=== PATIENT | male | born 1945 | race African-American/Black ===

== ENCOUNTER 2017-06-26 07:26 | Inpatient (IN) | payer MEDICARE ==
[2017-06-26] MEDS ORDERED: niCARdipine 20MG In NaCl 20 MG/200 ML BAG ONE (07:41)
--- NOTE | 2017-06-26 07:48 | CT ---
CT HEAD NONCONTRAST DATE: 06/26/17 HISTORY: Weakness, slurred speech. COMPARISON: 03/13/08. FINDINGS: Centered at the right lentiform nucleus is an irregular shaped hyperdense fluid collection measuring up to 4.3 x 2.0 cm greatest diameter on the axial images. It is surrounded by a small amount of vasog enic edema with very slight effacement of the right lateral ventricle. Old right [employer] infarct has progressed slightly since the prior study. Chronic ischemic small vessel di sease is also evident within the periventricular white matter. No evidence of intraventricular hemorr steven. IMPRESSION: Hypertensive-type right basal ganglia acute hematoma. Findings called to Dr. Ford in the emergency department at 0739 hours. CODE CR. POS: JIMMY
[2017-06-26 07:52] LABS: #Basophils 0.1 thou/uL (0.0-0.2); #Eosinphils 0.1 thou/uL (0.0-0.7); #Lymphocytes 1.3 thou/uL (1.20-3.40); #Monocytes 0.9 thou/uL (0.11-0.59); #Neutrophils 4.7 thou/uL (1.40-6.50); %Basophils 0.8 % (0.0-1.0); %Eosinophils 2.1 % (0.0-10.0); %Lymphocytes 18.3 % (21.0-51.0); %Neutrophils 65.8 % (42.0-75.0); Hemoglobin 15.2 g/dL (14.0-18.0); Mean Corpuscular HGB CONC 33.6 g/dL (32.0-36.0); Mean Corpuscular Hemoglobin 29.6 pg (27.0-31.0); Mean Corpuscular Volume 88.2 fl (80.0-94.0); Platelet Count 194 thou/uL (130-400); RBC Distribution Width 12.9 % (11.5-14.5); Red Blood Cell (RBC) Count 5.14 mill/uL (4.70-6.10); White Blood Cell (WBC) Count 7.1 thou/uL (4.8-10.8)
[2017-06-26 08:02] LABS: INR-International Normal Ratio 1.1; Prothrombin Time 14.8 SEC (12.0-14.7)
[2017-06-26 08:03] LABS: PTT 32.9 SEC (22.9-36.1)
[2017-06-26 08:07] LABS: ALT (SGPT) 8 U/L (8-55); AST (SGOT) 13 U/L (5-34); Albumin 4.7 g/dL (3.4-4.8); Alkaline Phosphatase 82 U/L (40-150); Anion Gap 13 mmol/L (10-20); BUN (Urea Nitrogen) 29 mg/dL (8.4-25.7); Bilirubin, Total 0.9 mg/dL (0.2-1.2); Calc. Creatinine Clearance 0 mL/min (70-130); Calcium 10.2 mg/dL (7.8-10.44); Carbon Dioxide 22 mmol/L (23-31); Chloride 110 mmol/L (98-107); Estimated GFR-MDRD 24; Globulin 3.8 g/dL (2.4-3.5); Glucose 110 mg/dL (80-115); Protein, Total 8.5 g/dL (5.8-8.1); Sodium 141 mmol/L (136-145)
[2017-06-26 08:11] LABS: CKMB 0.6 ng/mL (0-6.6); Troponin I 0.059 ng/mL (< 0.028)
[2017-06-26 10:34] LABS: Bilirubin Negative (Negative); Blood, Urine Negative (Negative); Clarity CLEAR (Clear); Glucose, Urine (Dipstick) Negative (Negative); Leukocyte Negative (Negative); Nitrite Negative (Negative); Protein, Urine (Dipstick) 300 mg/dL (Neg-Trace); Specific Gravity, Urine 1.013 (1.002-1.036); pH, Urine 6.5 (5.0-9.0)
[2017-06-26 10:37] LABS: Bacteria/HPF None Seen HPF (None Seen); Hyaline Casts/LPF 0-3 HYALINE CAST LPF (0-3 Hyaline); Pathc Cast-AUWi Flag 0.29 (0-2.49); Squamous Epithelial 0-3 HPF (0-3); WBC/HPF 0-3 HPF (0-3)
[2017-06-26 10:42] LABS: Amphetamine Not Detected (NotDetected); Barbiturates Screen Not Detected (NotDetected); Benzodiazepine Screen Not Detected (NotDetected); Cocaine Metabolite Screen Not Detected (NotDetected); Medtox Control Line Valid? VALID (VALID); Medtox Reader # READER 4; Methadone Not Detected (NotDetected); Methamphetamine Not Detected (NotDetected); Opiate Screen Not Detected (NotDetected); Oxycodone Screen Not Detected (NotDetected); Phencyclidine (PCP) Not Detected (NotDetected); THC/Cannabinoid Screen Not Detected (NotDetected); Tricyclic Screen Not Detected (NotDetected)
[2017-06-26 10:51] LABS: RBC/HPF 0-3 HPF (0-3); Yeast-All Forms None Seen HPF (None Seen)
[2017-06-26] MEDS ORDERED: Labetalol HCl 100 MG/20 ML VIAL SLOW IVP PRN ×2 (13:18→15:28)
[2017-06-26] MEDS ORDERED: Ondansetron PF 4 MG/2 ML Vial IVP PRN (13:18)
[2017-06-26] MEDS ORDERED: CCU Electrolyte Replacement 1 EACH IVPB ONE (13:18)
[2017-06-26] MEDS ORDERED: hydrALAZINE 20 MG/ML VIAL SLOW IVP PRN (13:18)
[2017-06-26] MEDS: Sodium Chloride 0.9% 1,000 ML IV SCH (13:30)
[2017-06-26] MEDS ORDERED: Magnesium 2 GM/NS 0.9% 100 ML 2 GM in Premix Bag 1 BAG IVPB PRN (14:15)
[2017-06-26] MEDS ORDERED: Potassium Phosphate 9 MMOL in Sodium Chloride 0.9% 100 ML IVPB PRN (14:15)
[2017-06-26] MEDS ORDERED: Potassium Chloride 20 MEQ TAB PO PRN (14:15)
[2017-06-26] MEDS ORDERED: Potassium Phosphate 12 MMOL in Sodium Chloride 0.9% 250 ML 250 ML IV PRN (14:15)
[2017-06-26] MEDS ORDERED: Potassium Chloride 40 MEQ in Sodium Chloride 0.9% 250 ML 250 ML IVPB PRN (14:15)
[2017-06-26] MEDS ORDERED: CCU ELECTROLYTE REPLACEMENT PROTOCOL FS PRN (14:15)
[2017-06-26] MEDS ORDERED: Potassium Chloride 40 MEQ in Premix Bag 1 BAG IVPB PRN (14:15)
[2017-06-26] MEDS ORDERED: Magnesium Oxide 400 MG TAB PO PRN ×2 (14:15)
[2017-06-26] MEDS ORDERED: Potassium Phosphate 15 MMOL in Sodium Chloride 0.9% 250 ML 250 ML IV PRN (14:15)
[2017-06-26] MEDS ORDERED: niCARdipine 20MG In NaCl 20 MG/200 ML BAG IVPB SCH (15:30)
--- NOTE | 2017-06-26 15:41 | CON ---
DATE OF CONSULTATION: 06/26/2017 SERVICE: Pulmonary Medicine. REASON FOR CONSULTATION: ICU patient. HISTORY OF PRESENT ILLNESS: The patient is a 71-year-old male with past medical history significant for multiple strokes. He is in his usual state of health when he went to bed last night. This morning, when he woke up, he had new neurologic symptoms. He was brought to the Emergency Department and discovered to have a hypertensive related bleed. Otherwise, he was in his usual state of health. He denies any fevers, chills, nausea, vomiting, night sweats, shortness of breath or chest discomfort. He had not been having any cough or sputum production. As previously noted, last night, is in his usual state of health. PAST MEDICAL HISTORY: 1. Hypertension. 2. History of stroke with residual left-sided deficits. PAST SURGICAL HISTORY: Right arm surgery. SOCIAL HISTORY: Negative for alcohol, tobacco or illicit drug use. 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 He has no exposure to chemicals , dust, asbestos or tuberculosis. FAMILY HISTORY: Noncontributory. ALLERGIES: No known drug allergies. MEDICATIONS: List of his inpatient medications were reviewed. Couple small updates were made. REVIEW OF SYSTEMS: General, head, ears, eyes, nose, throat, cardiovascular, respiratory, GI, , musculoskeletal, neurologic and skin is negative except as mentioned in the HPI. PHYSICAL EXAMINATION: VITAL SIGNS: Afebrile, pulse 82, respirations 15, saturation 98% on room air, blood pressure 144/75. HEENT: Normocephalic, atraumatic. Sclerae are white, conjunctivae pink. Oral mucosa is moist without lesions. LUNGS: Decent air entry without prolonged expiratory phase, wheezing, rhonchi or crackles. HEART: Normal rate, regular. ABDOMEN: Soft, nontender, nondistended. Bowel sounds are positive. MUSCULOSKELETAL: No cyanosis or clubbing. There is no pitting in the bilateral lower extremities. LABORATORY DATA: WBC 7.1, hemoglobin 15.2, platelets 194,000. INR 1.1. Creatinine 3.18. Basic metabolic profile is otherwise unremarkable. Liver function studies are unremarkable. Troponin 0.059. Urinalysis is unremarkable. Toxicology screen was unremarkable. IMAGING: CT of the brain demonstrates hemorrhagic cerebrovascular accident in the right thalamus. ASSESSMENT: 1. Intraparenchymal hemorrhage. 2. Hypertension. 3. Chronic kidney disease, suspected. PLAN: We will continue the Cardene drip. We will target a systolic blood pressure less than 140. Pulmonary Critical Care will continue to follow while the patient remains in this location. We have a swallow evaluated first thing in the morning. If he can swallow, will resume some p.o. medications. For the time being, IV fluids will be continued. Pulmonary Critical Care will continue to follow in this location. Currently, the patient is protecting his airway. Hopefully, he will maintain this over the next 48 hours. 70 minutes have been devoted to this patient in various activities. I personally reviewed all imaging studies and laboratory data noted within this document. For fifty percent of this time, I was interacting with the patient at the bedside or coordinating care with the care team. For the remainder of the time I was immediately available to the patient in the hospital unit. PRATIMA
--- NOTE | 2017-06-26 18:16 | CT ---
CT HEAD NONCONTRAST: HISTORY: Intracranial hemorrhage. Followup. COMPARISON: Earlier exam, same date. FINDINGS: Large right basal ganglia hematoma now measures up to 4.8 x 2.3 cm, where it was previously 4.3 x 2 c m. Mass effect upon the lateral ventricle has not significantly changed. No new hemorrhage or other abnormalities. IMPRESSION: Very slight interval expansion of the right basal ganglia hematoma, as detailed above. POS: HAYDE
[2017-06-26] MEDS: hydrALAZINE 20 MG/ML VIAL SLOW IVP PRN (19:16)
[2017-06-26] MEDS: niCARdipine 20MG In NaCl 20 MG/200 ML BAG IVPB SCH ×2 (19:20→21:56)
--- NOTE | 2017-06-26 20:52 | HP ---
HISTORY OF PRESENT ILLNESS: Mr. Davies is a 71-year-old man who was brought to the Emergency Depart [facility] [place] after waking up this morning with speech slurring and headache. He was brought vi a EMS. CT scan performed in the Emergency Department reveals a deep right-sided thalamic hemorrhage that is of his problems. He does have a history of right occipital stroke that left him with some left-sided deficits, though because of his speech difficulties, I am not exactly able to underst and the extent of these chronic deficits. In the bed, he is awake and alert. He does attempt to com municate. Again, he has significant speech dysarthria, but he is moving all 4 extremities for me, an d is otherwise stable. He is on aspirin, but is otherwise not on any other blood thinner. PAST MEDICAL HISTORY: Significant for CVA. PAST SURGICAL HISTORY: Unspecified. CURRENT MEDICATIONS: Atenolol, nifedipine, aspirin, benazepril, oxybutynin, and hydralazine. ALLERGIES: No known drug allergies. PHYSICAL EXAMINATION: Again, he is alert. I am unable to assess if he is oriented, but he does give me affirmative answers by nodding his head, yes or no. He moves all 4 extremities on command. He h as no sensory disturbance that I was able to discern. Extraocular movements are intact. Pupils are equal and reactive to light. Head is normocephalic, atraumatic. He does have some rigidity in the l eft upper extremity and is more sluggish to follow commands there, but still has some motor function particularly hand squeeze. ASSESSMENT: Acute intracerebral hemorrhage and facial motor dysfunction and dysarthria. PLAN: At this time, the patient will be admitted to the Intensive Care Unit [facility], head of bed elevated to 30, we will need to keep his systolic pressures under 160. I am not too concerned about reversing his aspirin as it is low dose, but we will get a serial scan about 4 o'cloc k this afternoon, which is roughly 8 hours since his first scan. We will consult the Critical Care S ervice and the Hospitalist Service and then as long as he remains stable, potentially transitioned ca re to them as primary. I do not believe we will proceed as being surgical, but we will follow closel y to ensure that is not the case.
[2017-06-26] MEDS ORDERED: Famotidine/PF 20 mg/2ml Vial SLOW IVP SCH (21:00)
[2017-06-26] MEDS ORDERED: Pantoprazole 40 MG VIAL IVP SCH (22:00)
--- NOTE | 2017-06-26 23:28 | CT ---
NONCONTRAST HEAD CT: HISTORY: Hemorrhage. Follow-up exam. COMPARISON: 06/26/2017 at 5:04 p.m. and 06/26/2017 at 7:35 a.m. TECHNIQUE: A noncontrast head CT is performed from the skull base to the skull vertex. FINDINGS: Redemonstration of a hemorrhage centered along the right lentiform nucleus. The hemorrhage currently measures 4.9 cm anterior-posterior x 2.5 cm craniocaudal. No significant change. There is associat ed edema, also stable. Stable mass effect upon the right lateral ventricle. There are stable white matter hypodensities. There is stable malacic change involving the right occipital lobe and the post eromedial right temporal lobe. With regard to the left cerebrum, cortical summers white matter differen tiation is preserved. No evidence of hydrocephalus. Stable calvarium. Adequate aeration of the sinuses and mastoid air cells. IMPRESSION: Stable intracranial hemorrhage. POS: [facility]
--- NOTE | 2017-06-27 00:21 | CON ---
DATE OF CONSULTATION: 06/26/2017 ADMITTING PHYSICIAN: Tihen Camara MD CONSULTING PHYSICIAN: Theodore Beck MD REASON FOR CONSULTATION: Manage medical problems. HISTORY OF PRESENT ILLNESS: Mr. Davies is a 71-year-old male with past medical history of hypertension, status post CVA, who was brought in because of change in mental status as well as slurred speech. The patient, when he woke up this morning, had slurred speech and complained of headache as well, but did not have any specific weakness on either side.EMS was calleed who found the pt with speech difficulties and also had markedly elevated blood pressure. Blood pressure in the ER was 177/96. The patient was found to have acute bleed in the right basal ganglia. The patient was seen by Dr. Camara, neurosurgeon, and admitted to CCU and i am being consulted to manage his medical problems. PAST MEDICAL HISTORY: 1. Hypertension. 2. Status post cerebrovascular accidents. 3. Hyperlipidemia. 4. Left-sided residual deficits. PAST SURGICAL HISTORY: Status post right arm surgery. CURRENT MEDICATIONS: The patient is on atenolol 100 mg b.i.d., nifedipine XL 90 mg daily, benazepril 40 mg daily, hydralazine 100 mg t.i.d., oxybutynin chloride 5 mg b.i.d. ALLERGIES: No known drug allergies. FAMILY HISTORY: Nothing of interest. SOCIAL HISTORY: The patient lives with family. No history of smoking or alcohol. REVIEW OF SYSTEMS: Cardiovascular: No chest pain. No shortness of breath. Respiratory: No fever or cough. Gastrointestinal: No nausea or vomiting. No abdominal pain. Central nervous system: Has headache. PHYSICAL EXAMINATION: GENERAL: The patient is alert, awake, oriented x2. VITAL SIGNS: Temperature 98, pulse 82, respirations 20, blood pressure 160/117. HEENT: Head is normocephalic, atraumatic. Pupils are equal and reactive to light. Nasopharynx is pink and moist. NECK: Supple. No JVD. LUNGS: Bilateral air entry present. No rales, no rhonchi. HEART: S1, S2. ABDOMEN: Soft, no rebound. No tenderness, no organomegaly, bowel sounds. RECTAL: deferred.. CENTRAL NERVOUS SYSTEM: No new focal deficit. Left facial droop, mild. LABORATORY DATA: CBC shows WBC 7.1, hemoglobin 15, hematocrit 45, platelets 194. Metabolic panel: Sodium 140, potassium 4, chloride 110, CO2 of 20, urea nitrogen 10, creatinine 3.1, glucose 110, CK-MB 0.6, troponin 0.059. Urinalysis is negative. Urine toxicology screen is negative. CT of the brain showed right basilar ganglia hematoma. ASSESSMENT: 1. Acute hypertensive hemorrhage, right basal ganglia. 2. Hypertension, malignant, uncontrolled. 3. Status post cerebrovascular accidents, multiple. 4. Hyperlipidemia. 5. Chronic kidney disease, stage 4. 6. Acute kidney injury as well. PLAN: 1. Continue ICU monitoring. 2. Cardene infusion. 3. We will start his home medications. 4. Hydralazine IVP p.r.n. Thank you very much for consult. I will follow. YID
[2017-06-27] MEDS ORDERED: niCARdipine 20MG In NaCl 20 MG/200 ML BAG IVPB SCH (00:45)
[2017-06-27] MEDS: Sodium Chloride 0.9% 1,000 ML IV SCH ×3 (02:17→17:58)
[2017-06-27] MEDS: niCARdipine HCl 25 MG in Sodium Chloride 0.9% 250 ML 240 ML IVPB SCH ×3 (02:37→06:27)
[2017-06-27 04:38] LABS: #Eosinphils 0.1 thou/uL (0.0-0.7); #Neutrophils 4.8 thou/uL (1.40-6.50); %Basophils 0.6 % (0.0-1.0); %Eosinophils 1.1 % (0.0-10.0); %Lymphocytes 14.6 % (21.0-51.0); %Monocytes 13.8 % (0.0-10.0); %Neutrophils 69.9 % (42.0-75.0); Hemoglobin 12.8 g/dL (14.0-18.0); Mean Corpuscular HGB CONC 33.9 g/dL (32.0-36.0); Mean Corpuscular Hemoglobin 30.3 pg (27.0-31.0); Mean Corpuscular Volume 89.3 fl (80.0-94.0); Mean Platelet Volume 7.4 fL (7.4-10.4); Platelet Count 170 thou/uL (130-400); RBC Distribution Width 12.7 % (11.5-14.5); Red Blood Cell (RBC) Count 4.25 mill/uL (4.70-6.10); White Blood Cell (WBC) Count 6.9 thou/uL (4.8-10.8)
[2017-06-27 05:02] LABS: Anion Gap 10 mmol/L (10-20); BUN (Urea Nitrogen) 24 mg/dL (8.4-25.7); Calc. Creatinine Clearance 26 mL/min (70-130); Calcium 8.7 mg/dL (7.8-10.44); Carbon Dioxide 22 mmol/L (23-31); Chloride 114 mmol/L (98-107); Estimated GFR-MDRD 28; Glucose 90 mg/dL (80-115); Sodium 142 mmol/L (136-145)
--- NOTE | 2017-06-27 07:26 | PRG ---
DATE OF SERVICE: 06/27/2017 SERVICE: Pulmonary Medicine INTERVAL HISTORY: The patient is doing fine from a respiratory standpoint. Neurologically, he has not gotten any worse. If anything, he has improved ever so slightly. He denies any chest pain, nausea or vomiting. Speech has yet to evaluate his swallow, but if he passes it, we will get him back on some p.o. blood pressure medications. Otherwise, there have been no events overnight. PHYSICAL EXAMINATION: VITAL SIGNS: Afebrile, pulse 78, blood pressure 136/71, respirations 19, saturation 95% on room air. GENERAL: The patient is awake, alert, no apparent distress. LUNGS: Excellent air entry. There is no prolonged expiratory phase, wheezing, rhonchi, or crackles present. HEART: Normal rate, regular. ABDOMEN: Soft, nontender, nondistended. Bowel sounds are positive. MUSCULOSKELETAL: No cyanosis or clubbing. There is no pitting in the bilateral lower extremities. LABORATORY DATA: WBC 6.9, hemoglobin 12.8, platelets 170,000. Creatinine 2.71 and gently down trending, bicarbonate 22, chloride 114. Basic metabolic profile is otherwise unremarkable. Urinalysis is negative. Urine drug screen is negative. ASSESSMENT: 1. Intraparenchymal hemorrhage. 2. Hypertension. 3. Chronic kidney disease, suspected. PLAN: Once his swallow is evaluated, if he is able to tolerate p.o., I will transition him over to p.o. blood pressure medications and see if we can get him off the Cardene drip. In the meantime, we will try to maintain blood pressures below systolics of 140. If he cannot swallow, an NG tube will be placed so we can provide him with nutrition, and p.o. medications while this is rehabilitated through time. A Solis catheter is not necessary and will be discontinued. From my perspective, he is stable for transition to the stroke unit if the drip can be discontinued. PRATIMA
--- NOTE | 2017-06-27 08:12 | PRG ---
DATE OF SERVICE: 06/27/2017 Mr. Davies is doing roughly the same today, he is neurologically stable. He still follows commands. His speech is somewhat improved and he answered my questions appropriately. He denies any pain or discomfort at present. He still has the same grade of motor control in his upper extremities and his left upper extremity being the one that retained the deficits from a prior stroke and possibly from this hemorrhage. We repeated imaging yesterday evening of the brain which reveals minimal increase i n the size of his right thalamic hemorrhage. I think at this point, we will have a discussion with [facility] Hospitalist Service about transferring care from [facility]. I would continue to hold his blood pres sure under 160, leave him off of his aspirin until we can get a repeat imaging in roughly a month or so to determine if this hemorrhage is resolved, at which point he could restart.
[2017-06-27 09:30] LABS: Cardiac Risk 4.1 (Less than 4.5)
[2017-06-27] MEDS: niCARdipine HCl 50 MG in Sodium Chloride 0.9% 250 ML 230 ML IVPB SCH ×4 (10:30→23:52)
--- NOTE | 2017-06-27 19:55 | PRG ---
DATE OF SERVICE: 06/27/2017 SUBJECTIVE: Mr. Davies is a 71-year-old gentleman admitted for a right thalamic hemorrhage. This s howed minimal blossoming between a follow up head CT. He has been neurologically stable since admiss ion. There will be no plans for a neurosurgical intervention. I foresee no need for placement of a ventriculostomy. Our plan will be to transition him to Hospitalist Service for ongoing hemorrhagic s troke evaluation and disposition.
[2017-06-27] MEDS ORDERED: Pantoprazole 40 MG VIAL IVP SCH (21:00)
[2017-06-28] MEDS: Sodium Chloride 0.9% 1,000 ML IV SCH (05:38)
[2017-06-28] MEDS: niCARdipine HCl 50 MG in Sodium Chloride 0.9% 250 ML 230 ML IVPB SCH (05:39)
[2017-06-28] MEDS ORDERED: Oxybutynin 5 MG TAB PO SCH (10:00)
[2017-06-28] MEDS ORDERED: NIFEdipine XL 90 MG TAB PO SCH (10:00)
[2017-06-28] MEDS ORDERED: Aspirin 325 MG TAB PO SCH (10:00)
[2017-06-28] MEDS ORDERED: Atenolol 50 MG TAB PO SCH (10:00)
[2017-06-28] MEDS ORDERED: hydrALAZINE 25 MG TAB PO SCH (10:00)
--- NOTE | 2017-06-28 10:55 | PRG ---
DATE OF SERVICE: 06/28/2017 SERVICE: Pulmonary Medicine. INTERVAL HISTORY: The patient is doing a little better from a respiratory standpoint. He denies any chest pain, nausea, vomiting. His mentation is roughly stable. His blood pressure is under good co ntrol, but requiring quite significant amount of medication in order to keep it there. He is having a low-grade temperature. Otherwise, there has been no change to his condition. PHYSICAL EXAMINATION: VITAL SIGNS: Afebrile currently. T-max 100.2, pulse 87, blood pressure 142/69, respirations 22, sat uration 95% on room air. GENERAL: The patient is awake, alert, no apparent distress. LUNGS: Decent air entry with no prolonged expiratory phase, wheezing, rhonchi, or crackles present. HEART: Normal rate, regular. ABDOMEN: Soft, nontender, and nondistended. Bowel sounds are positive. MUSCULOSKELETAL: No cyanosis or clubbing. There is no pitting in the bilateral lower extremities. ASSESSMENT: 1. Intraparenchymal hemorrhage. 2. Hypertension. 3. Chronic kidney disease, suspected. PLAN: Speech is clear to swallow. As such, we will resume home medications and titrate off of the C ardene drip. Pulmonary or Critical Care will continue to follow along while the patient remains in t his location. We will continue working with physical therapy through time. From my perspective, he is stable for transition to the neuro unit once he is off the Cardene drip.
[2017-06-28] MEDS: hydrALAZINE 20 MG/ML VIAL SLOW IVP PRN ×2 (13:47→17:36)
[2017-06-28] MEDS: hydrALAZINE 25 MG TAB PO SCH ×2 (13:48→19:57)
[2017-06-28] MEDS: Acetaminophen 325 MG TAB PO PRN (13:48)
[2017-06-28] MEDS: Atenolol 50 MG TAB PO SCH (19:57)
[2017-06-28] MEDS: Oxybutynin 5 MG TAB PO SCH (19:58)
[2017-06-29] MEDS: hydrALAZINE 20 MG/ML VIAL SLOW IVP PRN (05:48)
[2017-06-29] MEDS: NIFEdipine XL 90 MG TAB PO SCH (07:47)
[2017-06-29] MEDS: Oxybutynin 5 MG TAB PO SCH ×2 (07:49→20:19)
[2017-06-29] MEDS: hydrALAZINE 25 MG TAB PO SCH ×3 (08:00→20:19)
[2017-06-29] MEDS ORDERED: Atenolol 50 MG TAB PO SCH (08:00)
[2017-06-29] MEDS: Atenolol 50 MG TAB PO SCH ×2 (08:02→20:19)
[2017-06-29] MEDS ORDERED: Aspirin 325 MG TAB PO SCH (09:00)
--- NOTE | 2017-06-29 14:24 | PQF ---
CLINICAL DOCUMENTATION IMPROVEMENT CLARIFICATION FORM: ICD-10 Updated PLEASE DO AN ADDENDUM TO THE PROGRESS NOTE WITH ANY DOCUMENTATION UPDATES OR ADDITIONS AND CARRY THROUGH TO DC SUMMARY. THANK YOU. DATE: 06/29/17 ATTN: Dr. Beck Please exercise your independent, professional judgment in responding to the clarification form. Clinical indicators are provided on the bottom of this form for your review Please check appropriate box(s): [ ] Associated Diagnosis: [ ] Cerebral edema / Vasogenic edema [ ] Compression of brain Due to: [ ] Intracranial hematoma [ ] Acute cerebral infarction [ y ] Other diagnosis cerebral hemorrhge in basal ganglia, right [ ] Unable to determine In addition, please specify: Present on Admission (POA): [ y ] Yes [ ] No [ ] Unable to determine For continuity of documentation, please document condition throughout progress notes and discharge summary. Thank You. CLINICAL INDICATORS - SIGNS / SYMPTOMS/ IMAGING are present in the medical record: CT SCAN BRAIN 06/26 @0805: FINDINGS: CENTERED AT THE R LENTIFORM NUCLEUS IS AN IRREGULAR SHAPED HYPERDENSE FLUID COLLECTION.... IT IS SURROUNDED BY A SMALL AMOUNT OF VASOGENIC EDEMA W/ VERY SLIGHT EFFACEMENT OF THE R LATERAL VENTRICLE CT SCAN BRAIN 06/26 @ 2334: REDEMONSTRATION OF A HEMORRHAGE CENTERED ALONG THE RIGHT LENTIFORM NUCLEUS. .. THERE IS ASSOCIATED EDEMA, ALSO STABLE. NEURO SURGEON PN 06/27: ADMITTED FOR A R THALAMIC HEMORRHAGE. THIS SHOWED MINIMAL BLOSSOMING BETWEEN A FOLLOW UP HEAD CT. . RISKS: H&P: ACUTE INTRACEREBRAL HEMORRHAGE & FACIAL MOTOR DYSFUNCTION & DYSARTHRIA. TREATMENT: H&P: ADMITTED TO ICU W/ Q1 HR NEURO CHECKS, Thank you, Lorraine (This form is maintained as a part of the permanent medical record) 2014 [employer]. All Rights Reserved Lorraine Jackson RN, BSN [email or web address] Office: [phone] [facility]
--- NOTE | 2017-06-29 16:09 | PRG ---
DATE OF SERVICE: 06/29/2017 SERVICE: Pulmonary Medicine. INTERVAL HISTORY: The patient is doing fine from a respiratory standpoint. He denies any chest pain , nausea or vomiting. He is breathing comfortably. There has been no significant change to his neur ologic function through time. PHYSICAL EXAMINATION: VITAL SIGNS: Afebrile, pulse 79, blood pressure 153/85, respirations 18, saturation 95% on room air. GENERAL: The patient is awake, alert, no apparent distress. LUNGS: Decent air entry bilaterally without prolonged expiratory phase, wheezing, rhonchi or crackle s. HEART: Normal rate and regular. ABDOMEN: Soft, nontender, nondistended. Bowel sounds are positive. MUSCULOSKELETAL: No cyanosis or clubbing. There is no pitting in the bilateral lower extremities. LABORATORY DATA: None. ASSESSMENT: 1. Intraparenchymal hemorrhage. 2. Hypertension. 3. Chronic kidney disease, suspected. PLAN: The patient is doing fairly well from a respiratory perspective. He continues to protect his airway. His neurologic status has not changed significantly in the past 48 hours. As such, he has n o further requirements for inpatient Pulmonary or Critical Care opinion and I will sign off. Please call with additional questions or concerns moving forward.
[2017-06-29] MEDS ORDERED: Hydrochlorothiazide 25 MG TAB PO SCH (18:00)
[2017-06-30 05:51] LABS: Anion Gap 15 mmol/L (10-20); BUN (Urea Nitrogen) 31 mg/dL (8.4-25.7); Calc. Creatinine Clearance 26 mL/min (70-130); Calcium 8.9 mg/dL (7.8-10.44); Carbon Dioxide 20 mmol/L (23-31); Chloride 110 mmol/L (98-107); Estimated GFR-MDRD 23; Glucose 121 mg/dL (80-115); Potassium 3.7 mmol/L (3.5-5.1); Sodium 141 mmol/L (136-145)
[2017-06-30 07:44] LABS: Hemoglobin 12.3 g/dL (14.0-18.0); Mean Corpuscular HGB CONC 33.1 g/dL (32.0-36.0); Mean Corpuscular Hemoglobin 29.4 pg (27.0-31.0); Mean Corpuscular Volume 88.9 fl (80.0-94.0); Mean Platelet Volume 7.5 fL (7.4-10.4); Platelet Count 165 thou/uL (130-400); RBC Distribution Width 12.9 % (11.5-14.5); Red Blood Cell (RBC) Count 4.17 mill/uL (4.70-6.10); White Blood Cell (WBC) Count 10.5 thou/uL (4.8-10.8)
[2017-06-30] MEDS: Atenolol 50 MG TAB PO SCH ×2 (08:32→22:27)
[2017-06-30] MEDS: hydrALAZINE 25 MG TAB PO SCH ×3 (08:34→22:29)
[2017-06-30] MEDS: Hydrochlorothiazide 25 MG TAB PO SCH (08:35)
[2017-06-30] MEDS: NIFEdipine XL 90 MG TAB PO SCH (08:35)
[2017-06-30] MEDS: Oxybutynin 5 MG TAB PO SCH ×2 (08:35→22:29)
[2017-06-30] MEDS: Acetaminophen 325 MG TAB PO PRN (08:35)
[2017-06-30 08:45] LABS: Band 3 % (5-11); Lymphocytes 11 % (21-51); MDiff Complete? YES; Monocytes 16 % (0-10); Neutrophil 70 % (42-75); RBC Morphology Normal
[2017-06-30] MEDS: Albumin 25% 25 GM/100 ML BOT IVPB SCH (17:28)
--- NOTE | 2017-06-30 18:57 | CON ---
DATE OF CONSULTATION: 06/30/2017 HISTORY OF PRESENT ILLNESS: Mr. Davies is a 71-year-old black male who initially presented to the E due to impaired speech. He was found to have some left facial asymmetry and left-sided weakness. CT scan of the brain was done which showed a right-sided basal ganglia acute hematoma. Consultation with Neurosurgery was also done at that time. At that time, recommendation was simply t o manage him conservatively. We are now being consulted for the patient's chronic renal failure. Please note his initial creatini ne on admission was noted 3.18 and is currently now today at 3.28. REVIEW OF SYSTEMS: Left facial droop, left-sided weakness. No nausea, no vomiting. Positive for dy sarthria, no syncopal episode, no productive cough, no fever or chills, no abdominal pain, no diarrhe a, no constipation, no dysuria, no urinary frequency, no occasional headache. MEDICATIONS: Tenormin 100 mg p.o. b.i.d., Lotensin 40 mg daily, hydralazine 100 mg p.o. t.i.d., hydr ochlorothiazide 25 mg once a day, Procardia-XL 90 mg once a day, Ditropan 5 mg p.o. b.i.d. PAST MEDICAL HISTORY: Longstanding hypertension, recently status post CVA, basal ganglia bleed. Ple ase note patient has left-sided deficit. PAST SURGICAL HISTORY: Includes right arm surgery, also status post colonoscopy with polypectomy. SOCIAL HISTORY: Currently a sedentary lifestyle. The patient is a former alcoholic. No IV drug abu se. No smoking history. ALLERGIES: None. TRAUMA: None. IMMUNIZATIONS: Unknown. HOSPITALIZATIONS: Please see past medical history. FAMILY HISTORY: Noncontributory. PHYSICAL EXAMINATION: VITAL SIGNS: Blood pressure 121/76, heart rate 75, respiratory rate 18, temperature 99.9, pulse ox i s 93%. GENERAL: Noted to be awake, alert, comfortable, not in distress. SKIN: Adequate turgor. HEENT: He has pinkish conjunctivae, anicteric sclerae. NECK: No neck mass, no carotid bruits, no JVD. CHEST: No deformities. LUNGS: Clear breath sounds, no wheezing, no crackles. HEART: Normal sinus rhythm. No murmur, no gallops, no rubs. ABDOMEN: Globular, soft, nontender, no masses. EXTREMITIES: No edema, no deformities. NEUROLOGIC: Mild dysarthria, left-sided weakness, left facial droop. LABORATORY AND X-RAY FINDINGS: Laboratories of 06/30/2017, white count 10.5, hemoglobin 12.3, sodium 141, potassium 3.7, chloride 110, carbon dioxide 20, BUN 31, creatinine 3.28. On 06/27/2017, creati nine 2.71, on 06/23/2017, creatinine 3.18. On 06/26/2017, urinalysis shows protein of 300, no red cells, no white cells. ASSESSMENT AND PLAN: 1. Chronic renal failure -- fluctuating creatinine at the present time and underlying hypertensive n ephropathy remains with this patient. However, I could not rule out this possibility of superimposed prerenal azotemia. Please note this patient is currently on a diuretic, hydrochlorothiazide and raven azepril. We may need to consider holding off the benazepril for the moment. In addition, we will pr oceed with a renal ultrasound with this patient. We will semi-quantitate protein/creatinine. We zain l also semi-quantitate protein excretion with this patient. 2. Status post cerebrovascular accident. Supportive care. Thank you for the consult. We will continue to follow.
--- NOTE | 2017-06-30 19:32 | ULT ---
BILATERAL RENAL ULTRASOUND: 06/30/17 HISTORY: Renal failure. FINDINGS: The right kidney measures 9.6 cm in length and the left kidney measures 8.5 cm in length. No hydronep hrosis is seen on either side. The left kidney is not satisfactorily visualized. The prevoid bladder volume is 209 mL. The prostate is enlarged measuring 5.7 x 3.2 x 5.5 cm. IMPRESSION: 1. No evidence of high grade obstruction. 2. Prostatomegaly. POS: [facility]
[2017-07-01] MEDS: Labetalol HCl 100 MG/20 ML VIAL SLOW IVP PRN ×3 (00:20→14:19)
[2017-07-01] MEDS: Albumin 25% 25 GM/100 ML BOT IVPB SCH ×4 (00:23→17:50)
[2017-07-01] MEDS: Acetaminophen 325 MG TAB PO PRN (05:06)
[2017-07-01 05:44] LABS: Hep C IgG Ab Non-Reactive (NonReactive); Hep C Index 0.28 S/CO (0-0.79)
[2017-07-01] MEDS: NIFEdipine XL 90 MG TAB PO SCH (07:42)
[2017-07-01] MEDS: hydrALAZINE 25 MG TAB PO SCH ×4 (07:42→20:50)
[2017-07-01] MEDS: Atenolol 50 MG TAB PO SCH ×2 (07:43→20:51)
[2017-07-01] MEDS: Hydrochlorothiazide 25 MG TAB PO SCH (07:44)
[2017-07-01] MEDS: Oxybutynin 5 MG TAB PO SCH ×2 (07:44→20:51)
--- NOTE | 2017-07-01 14:04 | PRG ---
DATE OF SERVICE: 07/01/2017 SERVICE: Renal Medicine. SUBJECTIVE: Mr. Davies is a 71-year-old black male who was admitted due to CVA secondary to intracr anial bleed. He has also labile hypertension. We were consulted due to his acute kidney injury. Hi s renal function continues to worsen. I have discontinued his benazepril yesterday. This morning du e to the worsening renal dysfunction, I discontinued hydrochlorothiazide. He is currently receiving salt poor albumin. A presumptive diagnosis of hemodynamically mediated renal dysfunction has been eloy polk. His urine sediment is relatively benign. This morning, he is less arousable. OBJECTIVE: VITAL SIGNS: Blood pressure is 151/94, heart rate 89, respiratory 16, temperature 98.8, pulse ox 96% . GENERAL: The patient is lethargic and less arousable, not in distress. SKIN: Adequate turgor. HEENT: He has pinkish conjunctivae, anicteric sclerae. NECK: No neck mass, no carotid bruits, no JVD. CHEST: No deformities. LUNGS: Decreased breath sounds. HEART: Normal sinus rhythm. No murmur, no gallops, no rubs. ABDOMEN: Globular, soft, nontender, no masses. EXTREMITIES: No edema, no deformities. MEDICATIONS: Of 07/01/2017 was reviewed. LABORATORY DATA: Of 06/30/2017, BUN 31, creatinine 3.28. Urinalysis was reviewed on 06/26/2017. Th ere was no pigmented granular cast, but does have protein. Urine creatinine is 58.95. ASSESSMENT AND PLAN: 1. Acute kidney injury - consider a hemodynamically mediated renal dysfunction. The patient is off his RAUL inhibitors and diuretics. We will continue salt poor albumin infusion. No indication for an y dialytic intervention. 2. Hypertension. Due to the discontinuation of the benazepril and hydrochlorothiazide, we have adde d minoxidil at 5 mg tab once a day with this patient. 3. Status post cerebrovascular accident secondary to bleed. Continue supportive care. Neurosurgery is following. Overall, prognosis remains guarded with this patient.
[2017-07-01] MEDS: NIFEdipine XL 60 MG TAB PO SCH (20:51)
[2017-07-02] MEDS: Albumin 25% 25 GM/100 ML BOT IVPB SCH ×4 (00:45→18:01)
[2017-07-02] MEDS: Sodium Chloride 0.9% 1,000 ML IV SCH ×2 (04:25→10:11)
[2017-07-02 05:03] LABS: #Eosinphils 0.1 thou/uL (0.0-0.7); #Monocytes 1.4 thou/uL (0.11-0.59); #Neutrophils 7.7 thou/uL (1.40-6.50); %Basophils 0.2 % (0.0-1.0); %Eosinophils 0.9 % (0.0-10.0); %Lymphocytes 9.8 % (21.0-51.0); %Monocytes 13.3 % (0.0-10.0); %Neutrophils 75.8 % (42.0-75.0); Mean Corpuscular HGB CONC 34.4 g/dL (32.0-36.0); Mean Corpuscular Hemoglobin 30.3 pg (27.0-31.0); Mean Platelet Volume 7.5 fL (7.4-10.4); Platelet Count 137 thou/uL (130-400); RBC Distribution Width 12.6 % (11.5-14.5); Red Blood Cell (RBC) Count 3.63 mill/uL (4.70-6.10); White Blood Cell (WBC) Count 10.1 thou/uL (4.8-10.8)
[2017-07-02 05:33] LABS: HBSAg Index 0.19 S/CO (0-0.99); Hep B Surf Ag Non-Reactive S/CO (NonReactive); Hep C IgG Ab Non-Reactive (NonReactive); Hep C Index 0.24 S/CO (0-0.79)
[2017-07-02 05:40] LABS: Anion Gap 16 mmol/L (10-20); BUN (Urea Nitrogen) 50 mg/dL (8.4-25.7); Calc. Creatinine Clearance 23 mL/min (70-130); Calcium 10.3 mg/dL (7.8-10.44); Carbon Dioxide 26 mmol/L (23-31); Chloride 106 mmol/L (98-107); Estimated GFR-MDRD 20; Glucose 110 mg/dL (80-115); Potassium 3.5 mmol/L (3.5-5.1); Sodium 144 mmol/L (136-145)
--- NOTE | 2017-07-02 09:23 | CT ---
CT BRAIN: DATE: 07/02/17. PROVIDED CLINICAL HISTORY: Intracranial hemorrhage. FINDINGS: Comparison 06/26/17. There is persistent parenchymal hematoma involving the region of the right lenti form nuclei. This measures about 2.8 x 5.9 cm in greatest transverse dimensions as compared to about 5.6 x 2.7 cm on the prior study. There is no significant shift of the midline structures. Encephal omalacia involving the right [employer] distribution is redemonstrated. Chronic microvascular ischemic holliday ges are again seen. No evidence for new intracranial hemorrhage. The extracranial soft tissues and osseous structures appear unchanged. IMPRESSION: Right-sided intraaxial hematoma is redemonstrated without significant interval change. POS: [facility]
[2017-07-02] MEDS: hydrALAZINE 25 MG TAB PO SCH ×2 (09:31→21:28)
[2017-07-02] MEDS: Atenolol 50 MG TAB PO SCH ×2 (09:31→21:27)
[2017-07-02] MEDS: Minoxidil 2.5 MG TAB PO SCH (09:32)
[2017-07-02] MEDS: NIFEdipine XL 60 MG TAB PO SCH ×2 (09:32→21:27)
[2017-07-02] MEDS: Oxybutynin 5 MG TAB PO SCH ×2 (09:33→21:28)
[2017-07-02] MEDS ORDERED: hydrALAZINE 20 MG/ML VIAL SLOW IVP PRN (11:16)
[2017-07-02] MEDS ORDERED: hydrALAZINE 20 MG/ML VIAL SLOW IVP SCH (13:00)
[2017-07-02] MEDS ORDERED: hydrALAZINE 25 MG TAB PO SCH (18:00)
[2017-07-02] MEDS ORDERED: Minoxidil 2.5 MG TAB PO SCH (18:00)
[2017-07-02] MEDS: Acetaminophen 325 MG TAB PO PRN (21:30)
[2017-07-03 05:07] LABS: #Eosinphils 0.1 thou/uL (0.0-0.7); #Lymphocytes 0.8 thou/uL (1.20-3.40); #Neutrophils 6.1 thou/uL (1.40-6.50); %Basophils 0.2 % (0.0-1.0); %Eosinophils 1.4 % (0.0-10.0); %Lymphocytes 9.8 % (21.0-51.0); %Monocytes 12.6 % (0.0-10.0); Hemoglobin 11.4 g/dL (14.0-18.0); Mean Corpuscular Hemoglobin 30.2 pg (27.0-31.0); Mean Corpuscular Volume 88.9 fl (80.0-94.0); Mean Platelet Volume 7.8 fL (7.4-10.4); Platelet Count 153 thou/uL (130-400); RBC Distribution Width 12.5 % (11.5-14.5); Red Blood Cell (RBC) Count 3.76 mill/uL (4.70-6.10)
[2017-07-03] MEDS: Sodium Chloride 0.9% 1,000 ML IV SCH ×2 (05:11→14:43)
[2017-07-03 05:41] LABS: Anion Gap 17 mmol/L (10-20); BUN (Urea Nitrogen) 55 mg/dL (8.4-25.7); Calc. Creatinine Clearance 24 mL/min (70-130); Calcium 10.2 mg/dL (7.8-10.44); Carbon Dioxide 23 mmol/L (23-31); Chloride 107 mmol/L (98-107); Estimated GFR-MDRD 21; Glucose 104 mg/dL (80-115); Potassium 3.3 mmol/L (3.5-5.1); Sodium 144 mmol/L (136-145)
[2017-07-03] MEDS: Atenolol 50 MG TAB PO SCH ×2 (09:15→21:23)
[2017-07-03] MEDS: Minoxidil 2.5 MG TAB PO SCH (09:16)
[2017-07-03] MEDS: hydrALAZINE 25 MG TAB PO SCH ×4 (09:16→21:22)
[2017-07-03] MEDS: Oxybutynin 5 MG TAB PO SCH ×2 (09:17→21:23)
[2017-07-03] MEDS: NIFEdipine XL 60 MG TAB PO SCH (09:17)
--- NOTE | 2017-07-03 09:33 | PRG ---
DATE OF SERVICE: 07/03/2017 SUBJECTIVE: Mr. Davies is a 71-year-old black male who was seen by the Renal Service for his acute kidney injury. I felt that he had a superimposed hemodynamically mediated renal dysfunction. He had a recent CVA. In addition, his p.o. intake has been poor. I have also discontinued some of his RAUL inhibitors and ARB as well as a diuretic. He has been also started on salt poor albumin and normal saline. This morning, no new complaints. He is more awake. A repeat CT scan of the brain showed no progression of the cerebrovascular accident. No complaints of chest pain or shortness of breath. Still with decreased appetite. PHYSICAL EXAMINATION: VITAL SIGNS: Blood pressure 181/95, heart rate 78, respiratory rate 16, temperature 99, pulse ox 93% . GENERAL: Noted to be awake, lethargic, not in distress. SKIN: Adequate turgor. HEENT: Pinkish conjunctivae. Anicteric sclerae. NECK: No neck mass, no carotid bruits, no JVD. CHEST: No deformities. LUNGS: Clear breath sounds. No wheezing, no crackles. HEART: Normal sinus rhythm. No murmur, no gallops or rubs. ABDOMEN: Flat, soft, nontender. EXTREMITIES: No edema. Positive for left-sided weakness. MEDICATIONS: 07/03/2017 - Reviewed. LABORATORY: 07/03/2017 - White count 8, hemoglobin 11.4, sodium 144, potassium 3.3, chloride 107, ca rbon dioxide 23, BUN 55, creatinine 3.5, GFR 21 mL per minute. Calcium 10.2. CT scan of the brain 07/02/2017; right-sided intraaxial hematoma without significant interval change. ASSESSMENT AND PLAN: 1. Acute kidney injury on top of his chronic renal failure, stabilizing renal function. As a matter of fact, creatinine is slightly improved when compared to yesterday. Continue current normal saline . Continue to hold off any diuretics or RAUL inhibitors with this patient. 2. Status post cerebrovascular accident - secondary to bleed. Supportive care. 3. Decreased p.o. intake. I encouraged the patient to increase his p.o. intake. If he is not succe ssful, he may need a NG tube. 4. Labile hypertension. Continue current blood pressure meds.
[2017-07-03 13:09] LABS: ANA Symphony (Qualitative) Negative (Negative); dsDNA IgG Antibody 1.6 IU/mL (<10 Negative)
[2017-07-04] MEDS: Sodium Chloride 0.9% 1,000 ML IV SCH ×3 (00:51→14:31)
[2017-07-04] MEDS: hydrALAZINE 20 MG/ML VIAL SLOW IVP PRN ×3 (03:52→18:39)
[2017-07-04] MEDS: hydrALAZINE 25 MG TAB PO SCH ×4 (08:52→21:41)
[2017-07-04] MEDS: Oxybutynin 5 MG TAB PO SCH ×2 (08:53→21:42)
[2017-07-04] MEDS: Minoxidil 2.5 MG TAB PO SCH (08:53)
[2017-07-04] MEDS ORDERED: NIFEdipine 10 MG CAP PO SCH (09:00)
[2017-07-04 09:09] LABS: Anion Gap 14 mmol/L (10-20); BUN (Urea Nitrogen) 69 mg/dL (8.4-25.7); Calc. Creatinine Clearance 25 mL/min (70-130); Calcium 9.3 mg/dL (7.8-10.44); Carbon Dioxide 17 mmol/L (23-31); Chloride 115 mmol/L (98-107); Estimated GFR-MDRD 22; Glucose 117 mg/dL (80-115); Potassium 3.4 mmol/L (3.5-5.1); Sodium 143 mmol/L (136-145)
--- NOTE | 2017-07-04 09:14 | PRG ---
DATE OF SERVICE: 07/04/2017 RENAL MEDICINE SUBJECTIVE: Mr. Davies is a 71-year-old black male who was admitted for CVA secondary to bleed. We have been consulted this patient for his labile hypertension as well as acute renal failure. I have discontinued his diuretics and RAUL inhibitors. There is some stabilization with the renal function. Due to his decreased p.o. intake, he is currently also on IV fluids. No new complaints today. He still has decreased appetite. PHYSICAL EXAMINATION: VITAL SIGNS: Blood pressure 117/73, heart rate 84, respiratory rate 20, temperature 99.6, pulse ox 9 3%. GENERAL: Noted to be awake, alert, comfortable, sleepy, but arousable. SKIN: Adequate turgor. HEENT: Pinkish conjunctivae, anicteric sclerae. NECK: No neck mass, no carotid bruits, no JVD. CHEST: No deformities. LUNGS: Clear breath sounds, no wheezing, no crackles. HEART: Normal sinus rhythm. No murmurs, no gallops, no rubs. ABDOMEN: Globular, soft, nontender. No masses. EXTREMITIES: No edema. NEUROLOGIC: Positive for left-sided weakness. MEDICATIONS: Medications of 07/04/2017 reviewed. LABORATORY DATA: Laboratories of 07/03/2017; hemoglobin 11.4, potassium 3.3, BUN 55, and creatinine 3.5. ASSESSMENT AND PLAN: 1. Acute kidney injury on top of possible chronic renal failure, stabilizing renal function. Rechec k base met today and in a.m. Continue current IV fluid. There is no indication for any dialytic int ervention. 2. Labile hypertension, much improved. Continue current antihypertensive regimen. 3. Status post cerebrovascular accident, awaiting possible rehab placement. Due to his decreased p.o. intake, I would continue current IV fluid.
[2017-07-04] MEDS: NIFEdipine 10 MG CAP PO SCH ×4 (12:10→21:42)
[2017-07-04] MEDS ORDERED: Atenolol 25 MG TAB PO SCH (12:15)
[2017-07-04] MEDS: Atenolol 50 MG TAB PO SCH ×2 (12:52→21:41)
[2017-07-04 13:38] VITALS: BMI 25.8
[2017-07-04 16:16] LABS: Cytoplasmic (C-ANCA) <1:20 titer (Neg:<1:20); Myeloperoxidase AutoAbs <9.0 U/mL (0.0-9.0); Perinuclear (P-ANCA) <1:20 titer (Neg:<1:20); Proteinase-3 AutoAbs Less than 3.5 U/mL (0.0-3.5)
[2017-07-04] MEDS ORDERED: Potassium Chloride 20 MEQ TAB PO SCH (18:00)
[2017-07-05] MEDS: Sodium Chloride 0.9% 1,000 ML IV SCH ×2 (02:26→12:31)
[2017-07-05 06:26] LABS: Anion Gap 16 mmol/L (10-20); BUN (Urea Nitrogen) 66 mg/dL (8.4-25.7); Calc. Creatinine Clearance 25 mL/min (70-130); Calcium 9.2 mg/dL (7.8-10.44); Carbon Dioxide 18 mmol/L (23-31); Chloride 114 mmol/L (98-107); Estimated GFR-MDRD 21; Glucose 106 mg/dL (80-115); Potassium 3.5 mmol/L (3.5-5.1); Sodium 144 mmol/L (136-145)
[2017-07-05 06:29] LABS: Eosinophils 2 % (0-10); Hemoglobin 11.7 g/dL (14.0-18.0); Lymphocytes 12 % (21-51); MDiff Complete? YES; Mean Corpuscular HGB CONC 33.3 g/dL (32.0-36.0); Mean Corpuscular Hemoglobin 29.7 pg (27.0-31.0); Mean Corpuscular Volume 89.1 fl (80.0-94.0); Mean Platelet Volume 7.5 fL (7.4-10.4); Monocytes 14 % (0-10); Neutrophil 72 % (42-75); Platelet Count 138 thou/uL (130-400); RBC Distribution Width 12.6 % (11.5-14.5); Red Blood Cell (RBC) Count 3.93 mill/uL (4.70-6.10); White Blood Cell (WBC) Count 7.3 thou/uL (4.8-10.8)
--- NOTE | 2017-07-05 08:25 | PRG ---
DATE OF SERVICE: 07/05/2017 SUBJECTIVE: Mr. Davies is a 71-year-old black male who was admitted for a CVA secondary to a bleed. We are being consulted for his labile hypertension as well as for his acute kidney injury on top of his chronic renal failure. We have been adjusting his blood pressure medication. I discussed the c ase with Dr. Beck. Minoxidil has been increased from 5 to 10 mg tab daily. No new complaints today. PHYSICAL EXAMINATION: VITAL SIGNS: Blood pressure is 162/90, heart rate 83, respiratory rate 20, temperature 98.3, pulse o ximetry 98% on room air. GENERAL: Awake, lethargic, not in distress. SKIN: Adequate turgor. HEENT: Pinkish conjunctivae, anicteric sclerae. NECK: No neck mass, no carotid bruits, no JVD. CHEST: No deformities. LUNGS: Decreased breath sounds. No wheezing. HEART: Normal sinus rhythm. No murmur, no gallops, no rubs. ABDOMEN: Globular, soft, nontender. EXTREMITIES: No edema. NEUROLOGIC: Lethargic, positive for left-sided weakness. MEDICATIONS: 07/05/2017 - Reviewed. LABORATORY: 07/05/2017 - Sodium 144, potassium 3.5, chloride 114, carbon dioxide 18, BUN 66, creatin ine 3.45, glucose 106, calcium 9.2, white count 7.3, hemoglobin 11.7, hematocrit 35.1. ASSESSMENT AND PLAN: 1. Acute kidney injury on top of his chronic renal failure, stabilizing renal function. Creatinine is noted to be stable. Continue current management. There is no indication for any dialytic interve ntion. Continue current IV fluid. 2. Status post cerebrovascular accident secondary to a bleed - supportive care for eventual rehab pl acement. 3. Labile hypertension. Continue current blood pressure meds. Hold off any RAUL inhibitors or ARB. The patient's minoxidil has been adjusted upwards yesterday. I agree with current management.
[2017-07-05] MEDS: hydrALAZINE 25 MG TAB PO SCH ×2 (08:43→12:19)
[2017-07-05] MEDS: Atenolol 50 MG TAB PO SCH (08:43)
[2017-07-05] MEDS: Oxybutynin 5 MG TAB PO SCH (08:43)
[2017-07-05] MEDS: NIFEdipine 10 MG CAP PO SCH ×2 (08:43→12:19)
[2017-07-05] MEDS ORDERED: Minoxidil 10 MG TAB PO SCH (09:00)
[2017-07-05] MEDS ORDERED: Polyethylene Glycol 3350 17 GM Packet PO SCH (10:15)
[2017-07-05 11:54] VITALS: TEMP 99.5
[2017-07-05 14:34] VITALS: BP 160/81
--- NOTE | 2017-07-06 15:15 | DIS ---
DATE OF ADMISSION: 06/26/2017 DATE OF DISCHARGE: 07/05/2017 ADMITTING DIAGNOSES: 1. Acute intracerebral hemorrhage with facial motor dysfunction and dysarthria. 2. Hypertension, malignant, uncontrolled. 3. Chronic kidney disease stage 4. 4. Hyperlipidemia. 5. Acute kidney injury. 6. Status post cerebrovascular accident, multiple. FINAL DIAGNOSES: 1. Acute hypertensive hemorrhage, right basal ganglia with dysarthria. 2. Hypertension, malignant, uncontrolled, improved. 3. Acute kidney injury, improving. 4. Hyperlipidemia. 5. Chronic kidney disease stage 4. 6. Anorexia, improving. 7. Hyperlipidemia. 8. Unstable gait. BRIEF SUMMARY OF HOSPITAL COURSE: Mr. Davies is a 71-year-old - [place] male admitted because of change in mental status. The patient was found to have hypertensive hemorrhage and basal ganglia. The patient was admitted with Neurosurgery, and later handed over to the medical team. The patient has malignant hypertension and blood pressure was very, very high. His medication dose was increased to control the blood pressure. Initially, he was monitored on the CCU, later he was transferred to the medical floor once he was stable regarding his hemorrhage. His blood pressure was monitored and blood pressure was gradually controlled. His renal function got worse. His creatinine went down to 3.7. A renal consult was done. The patient was seen by Dr. Mello. His BUN also went up to 59. He is hemodynamically mediated so as to continue the fluids. In the next few days, his renal function slightly improved, but remained stable. The patient was started on physical therapy and he was accepted to rehab for inpatient. In view of improvement, the patient was discharged. At the time of discharge, he was stable. His vital signs were stable. Lungs are clear. Heart sounds regular. Abdomen is soft, nontender. Bowel sounds present. Not distended. DISCHARGE MEDICATIONS: Include Atenolol 100 mg b.i.d, oxybutynin chloride 5 mg b.i.d., aspirin 325 mg daily, hydralazine 100 mg q.i.d., minoxidil 10 mg daily, and nifedipine 30 mg q.i.d. The patient will continue physical therapy at the rehabilitation. [facility]
--- NOTE | 2017-08-11 14:44 | EKG ---
Test Reason : Blood Pressure : / mmHG Vent. Rate : 096 BPM Atrial Rate : 096 BPM P-R Int : 182 ms QRS Dur : 086 ms QT Int : 376 ms P-R-T Axes : 060 -15 266 degrees QTc Int : 475 ms Normal sinus rhythm Minimal voltage criteria for LVH, may be normal variant Prolonged QT Abnormal ECG Confirmed by ADRIENNE BARON, MARY ([id number]), editor publications AVIS SHORE ([id number]) on 08/11/2017 2:44:06 PM Referred By: Confirmed By:MARY DELEON MD
== END 2017-07-05 15:23 | DRG 65 ==
LOC: ERS 07:26 → CCU 08:58 → 2SE 06-28 16:58
PROVIDERS: ADMIT Neurological Surgery; ATTEND Internal Medicine
DX: I61.9 Nontraumatic intracerebral hemorrhage, unspecified (principal); N18.4 Chronic kidney disease, stage 4 (severe); N17.9 Acute kidney failure, unspecified; I69.354 Hemiplegia and hemiparesis following cerebral infarction affecting left non-dominant side; I10 Essential (primary) hypertension; R47.1 Dysarthria and anarthria; Z79.899 Other long term (current) drug therapy; Z79.891 Long term (current) use of opiate analgesic; Z79.82 Long term (current) use of aspirin
CPT/HCPCS: 36415; 36416; 70450; 76770; 80048; 80053; 80061; 80306; 81003; 81015; 82553; 82570; 83520; 84484; 85025; 85610; 85730; 86038; 86225; 86256; 86803; 87340; 93005; 94760; 96374; C9113; G8978-GP-CM; G8979-GP-CJ; G8987-GO-CN; G8988-GO-CL; G8996-GN-CK; G8996-GN-CM; G8997-GN-CI; J0360; J7050; P9047

== ENCOUNTER 2017-07-05 22:42 | Inpatient (IN) | payer MEDICARE ==
[2017-07-06] MEDS ORDERED: Benzocaine 20% Spray 60 ML CAN ONE (00:44)
[2017-07-06 01:10] LABS: #Eosinphils 0.2 thou/uL (0.0-0.7); #Lymphocytes 0.8 thou/uL (1.20-3.40); #Monocytes 1.1 thou/uL (0.11-0.59); #Neutrophils 6.4 thou/uL (1.40-6.50); %Basophils 0.2 % (0.0-1.0); %Eosinophils 1.8 % (0.0-10.0); %Lymphocytes 9.8 % (21.0-51.0); %Neutrophils 75.2 % (42.0-75.0); Hemoglobin 12.2 g/dL (14.0-18.0); Mean Corpuscular HGB CONC 33.3 g/dL (32.0-36.0); Mean Corpuscular Hemoglobin 29.7 pg (27.0-31.0); Mean Corpuscular Volume 89.3 fl (80.0-94.0); Mean Platelet Volume 7.7 fL (7.4-10.4); Platelet Count 183 thou/uL (130-400); RBC Distribution Width 12.6 % (11.5-14.5); Red Blood Cell (RBC) Count 4.12 mill/uL (4.70-6.10); White Blood Cell (WBC) Count 8.5 thou/uL (4.8-10.8)
[2017-07-06 01:35] LABS: ALT (SGPT) 22 U/L (8-55); AST (SGOT) 22 U/L (5-34); Albumin 4.2 g/dL (3.4-4.8); Alkaline Phosphatase 43 U/L (40-150); Anion Gap 15 mmol/L (10-20); BUN (Urea Nitrogen) 74 mg/dL (8.4-25.7); Bilirubin, Total 0.8 mg/dL (0.2-1.2); Calc. Creatinine Clearance 0 mL/min (70-130); Calcium 9.3 mg/dL (7.8-10.44); Carbon Dioxide 20 mmol/L (23-31); Chloride 114 mmol/L (98-107); Estimated GFR-MDRD 20; Globulin 2.7 g/dL (2.4-3.5); Glucose 128 mg/dL (80-115); Lipase 66 U/L (8-78); Potassium 3.4 mmol/L (3.5-5.1); Protein, Total 6.9 g/dL (5.8-8.1); Sodium 146 mmol/L (136-145)
[2017-07-06] MEDS ORDERED: Sodium Chloride 0.9% 1,000 ML IV SCH (05:49)
[2017-07-06] MEDS ORDERED: Prevnar 13-Val Conj/PF 0.5 ML SYRINGE IM ONE (06:45)
--- NOTE | 2017-07-06 07:01 | RAD ---
FRONTAL RADIOGRAPH CHEST AND TWO VIEWS ABDOMEN: 07/05/2017 HISTORY: Distention. COMPARISON: None. FINDINGS: Frontal radiograph chest demonstrates no pneumothorax, pleural fluid, focal consolidation, or alveola r edema. Heart and mediastinal contours are grossly unremarkable. There is a massively dilated viscus filling the upper abdomen, measuring up to 21.8 cm in transverse dimension. This likely represents the stomach but could potentially represent the colon. No evidenc e for small-bowel obstruction is seen. There is an air-fluid level within this markedly dilated visc us on decubitus imaging. IMPRESSION: Massively gaseous-distended viscus in upper abdomen. Results were called to Dr. Pederson. CT examina tion of abdomen and pelvis suggested for full characterization. CODE CR POS: [facility]
--- NOTE | 2017-07-06 08:55 | RAD ---
ABDOMEN 1 VIEW: HISTORY: A 71-year-old male with a history of abdominal distention followup. COMPARISON: 07/06/17 CT. FINDINGS: An NG tube is in place. There is some persistent gas in the stomach, but has been markedly decompres sed when compared to the prior CT. There is some gas and fecal material in the colon. IMPRESSION: Nasogastric tube in place within the stomach. There is some persistent gas in the stomach but is mar kedly decompressed compared to the prior CT. POS: [facility]
[2017-07-06] MEDS ORDERED: Magnesium Citrate 300 ML BOT PER TUBE SCH (09:45)
[2017-07-06] MEDS ORDERED: NIFEdipine 10 MG CAP PO SCH (09:45)
[2017-07-06] MEDS ORDERED: hydrALAZINE 25 MG TAB PO SCH (09:45)
[2017-07-06] MEDS ORDERED: Minoxidil 10 MG TAB PO SCH (09:45)
[2017-07-06] MEDS ORDERED: Oxybutynin 5 MG TAB PO SCH (09:45)
[2017-07-06] MEDS ORDERED: Atenolol 50 MG TAB PO SCH (09:45)
[2017-07-06] MEDS: Sodium Chloride 0.9% 1,000 ML IV SCH ×2 (10:28→23:25)
--- NOTE | 2017-07-06 10:50 | CT ---
PRELIMINARY REPORT/[facility]/EMERGENTY AFTER-HOURS PROCEDURE CT Abdomen and Pelvis Without Intravenous Contrast EXAM DATE/TIME: Exam ordered 07/06/2017 1:53 AM CLINICAL HISTORY: 71 years old, male; Pain; Abdominal pain; Generalized; Patient HX: Er25; 71 y/o m with presentation o f abdominal distension. Nh reports that last bm is unknown and staff noticed increasing abdominal dis tension. When asked if he is still passing gas, the pt nodded yes. He is denying abd pain TECHNIQUE: Axial computed tomography images of the abdomen and pelvis without intravenous contrast. Coronal refo rmatted images were created and reviewed. COMPARISON: No relevant prior studies available. FINDINGS: Lung bases: There is bibasilar lung consolidation/atelectasis. ABDOMEN: Liver: The liver is within normal limits for this noncontrast study. Gallbladder and bile ducts: Normal. No calcified stones. No ductal dilation. Pancreas: The pancreas appears normal. No ductal dilation. Spleen: The spleen is normal. Adrenals: The adrenal glands are normal. Kidneys and ureters: The left kidney is normal. There is a simple cyst in the right kidney. No obstru cting stones. No hydronephrosis. Stomach and bowel: The stomach is markedly distended. Small bowel is normal. The colon is normal. No mucosal thickening. PELVIS: Appendix: A normal appendix is identified. Bladder: Normal. No stones. Reproductive: The prostate gland and seminal vesicles are normal. ABDOMEN and PELVIS: Intraperitoneal space: Normal. No free air. No significant fluid collection. Bones/joints: The lumbar spine demonstrates mild to moderate degenerative changes at multiple levels. No acute fracture. No dislocation. Soft tissues: Normal. Vasculature: Normal. No abdominal aortic aneurysm. Lymph nodes: Normal. No enlarged lymph nodes. Tubes, lines and devices: A nasogastric tube lies with its tip in the stomach. IMPRESSION: The stomach is markedly distended. The small bowel is decompressed. Gastroparesis as possible. Thank you for allowing us to participate in the care of your patient. Dictated and Authenticated by: Kevin Santizo MD 07/06/2017 3:14 AM Central Time ([place] & [place]) FINAL REPORT CT ABDOMEN AND PELVIS WITHOUT CONTRAST: EMERGENT AFTER HOURS EXAM FINDINGS/IMPRESSION: I agree with the findings and impression given in the preliminary report per [facility] physician. 1. There is marked distention of the stomach. An NG tube is seen within the stomach. 2. Small bilateral pleural effusions with adjacent atelectasis. 3. Enlarged prostate. POS: [facility]
[2017-07-06] MEDS: hydrALAZINE 25 MG TAB PO SCH ×3 (12:48→20:08)
[2017-07-06] MEDS: NIFEdipine 10 MG CAP PO SCH ×3 (12:49→20:16)
[2017-07-06] MEDS ORDERED: Polyethylene Glycol 3350 17 GM Packet PO SCH (18:15)
[2017-07-06] MEDS ORDERED: Milk Of Magnesia 30 ML UDCUP PO SCH (18:15)
[2017-07-06] MEDS: Potassium Chloride 20 MEQ TAB PO SCH ×2 (18:35→23:26)
[2017-07-06] MEDS: Atenolol 50 MG TAB PO SCH (20:07)
[2017-07-06] MEDS: Oxybutynin 5 MG TAB PO SCH (20:08)
[2017-07-06] MEDS ORDERED: Fleet Enema 133 ML BOT FS SCH (21:00)
--- NOTE | 2017-07-07 04:56 | HP ---
DATE OF ADMISSION: 07/05/2017 CHIEF COMPLAINT: Abdominal pain and distention. HISTORY OF PRESENT ILLNESS: Mr. Davies is a 71-year-old, -[place] male with past medical hi story of hypertension, chronic kidney disease, who was discharged from the hospital to rehab where he developed abdominal distention. Last BM was about 3 days ago. Nurse at the rehabilitation noticed his abdominal distention was increasing. He was sent to the hospital. In the ER, the patient was ev aluated and found to have markedly distended abdomen. X-ray of the abdomen revealed distended viscer a, but it is not clear whether there is a lot of gas in the stomach. So, he was found to have disten ded abdomen and tympanic abdomen. A CT of the abdomen revealed no obstruction, but a distended stoma ch, so NG tube was placed, and after a week, his abdominal distention came down somewhat and also, he was found to have impacted stool. Disimpaction was done in the ER, and patient was admitted for fur ther evaluation and management. PAST MEDICAL HISTORY: 1. Hypertension. 2. Chronic kidney disease stage 4. 3. Status post cerebrovascular accident. PAST SURGICAL HISTORY: Nothing significant. CURRENT MEDICATIONS: The patient is on hydralazine 100 mg 4 times daily, atenolol 100 mg b.i.d., min oxidil 10 mg daily, nifedipine 30 mg q.i.d., Ditropan 5 mg b.i.d. ALLERGIES: No known drug allergies. FAMILY HISTORY: Nothing of interest. SOCIAL HISTORY: The patient came from the rehabilitation. No history of smoking. No history of alc ohol intake. REVIEW OF SYSTEMS: Cardiovascular: No chest pain. No shortness of breath. Respiratory: No fever or cough. Gastrointestinal: Has abdominal distention and constipation. Central nervous system: No headache, no dizziness. PHYSICAL EXAMINATION: GENERAL: The patient is alert, awake, oriented x2. VITAL SIGNS: Temperature 98, pulse 78, respirations 20, blood pressure 160/80. HEENT: Head is normocephalic, atraumatic. Pupils equal and reactive to light. Nasopharynx is pale and dry. Hard and soft palate, no lesions seen. SKIN: Skin turgor decreased. NECK: Supple. No JVD. LUNGS: Bilateral air entry present, no rales, no rhonchi. HEART: S1, S2 regular. ABDOMEN: Soft, no tenderness. Mild distention present. No guarding, no rigidity. Bowel sounds pre sent. RECTAL: Deferred. CENTRAL NERVOUS SYSTEM: No new deficits. LABORATORY AND X-RAY FINDINGS: CBC shows WBC 8.5, hemoglobin 12, hematocrit 36, and platelets 183. Metabolic panel: Sodium 146, potassium 3.4, chloride 104, CO2 of 20, BUN 74, creatinine 3.6, glucose 128. X-ray of the abdomen revealed distended stomach and stool in the colon. CT abdomen also confi rmed distended stomach. Chest x-ray negative. ASSESSMENT: 1. Abdominal distention, gaseous and severe constipation with fecal impaction. 2. Hypertension, uncontrolled. 3. Acute kidney injury. 4. Chronic kidney disease. 5. Hypokalemia, cerebral hemorrhage by history. PLAN: 1. Vital signs q.4 hours. 2. Activity: As tolerated. 3. Allergies: NKDA. 4. IV fluids normal saline at 75 mL per hour. 5. Diet: Pureed. 6. Continue medications. 7. Repeat x-ray abdomen. 8. Magnesium citrate for his constipation. 9. MiraLax 17 grams daily. 10. Milk of magnesia p.r.n. and KCl.
[2017-07-07 05:46] LABS: Anion Gap 16 mmol/L (10-20); BUN (Urea Nitrogen) 72 mg/dL (8.4-25.7); Calc. Creatinine Clearance 20 mL/min (70-130); Calcium 9.1 mg/dL (7.8-10.44); Carbon Dioxide 20 mmol/L (23-31); Chloride 117 mmol/L (98-107); Estimated GFR-MDRD 19; Glucose 108 mg/dL (80-115); Potassium 3.9 mmol/L (3.5-5.1); Sodium 149 mmol/L (136-145)
[2017-07-07] MEDS: Atenolol 50 MG TAB PO SCH ×2 (09:18→20:48)
[2017-07-07] MEDS: hydrALAZINE 25 MG TAB PO SCH ×4 (09:18→20:49)
[2017-07-07] MEDS: Minoxidil 10 MG TAB PO SCH (09:19)
[2017-07-07] MEDS: Oxybutynin 5 MG TAB PO SCH ×2 (09:19→20:49)
[2017-07-07] MEDS: Polyethylene Glycol 3350 17 GM Packet PO SCH (09:19)
[2017-07-07] MEDS ORDERED: Magnesium Citrate 300 ML BOT PO SCH (10:00)
[2017-07-07] MEDS: NIFEdipine 10 MG CAP PO SCH ×4 (10:01→20:48)
[2017-07-07] MEDS: Dextrose 5 %-0.45 % NaCl 1,000 ML IV SCH ×2 (11:53→21:00)
--- NOTE | 2017-07-07 12:06 | RAD ---
ABDOMEN 1 VIEW: Date: 07/07/17 HISTORY: Abdominal distention. FINDINGS/IMPRESSION: There is air-filled gastric distention. Bowel gas pattern is unremarkable. There is fecal material in the colon. Degenerative changes are present in the spine. No suspicious calcifications are identifie d. POS: [facility]
--- NOTE | 2017-07-08 07:55 | CON ---
DATE OF CONSULTATION: 07/07/2017 REFERRING PHYSICIAN: Theodore Beck M.D. REASON FOR CONSULTATION: Abdominal distention and abnormal CAT scan of the abdomen. HISTORY OF PRESENT ILLNESS: Mr. Brad Davies is a 71-year-old black male with history of hypertension, chronic kidney disease and also past history of CVA x2. The patient does have some residual distal weakness. The patient hospitalized because of abdominal distention and on admission had a CAT scan of the abdomen. The CAT scan showed markedly dilated stomach with large amount of residue in the stomach. The small bowel and colon predominantly distended. It appears he has more of a gastric ileus or possibly gastric outlet obstruction. The patient was treated with NG tube and IV fluids. Apparently, he has put out nearly 2000 mL of gastric content. After he put out gastric contents, his abdomen became softer and less distended. Although, his abdomen is markedly distended, he has no abdominal pain, no nausea, no vomiting. He is also eating well until a couple of days ago. The patient's NG tube has been removed. He had abdominal series done today and the abdominal series again shows dilation of the stomach. He has been getting laxatives and he passed a small amount of stool. He is tolerating diet. He has no similar symptoms in the past. No past history of ulcer disease. No other relevant history. ALLERGIES: None. SOCIAL HISTORY: The patient does not smoke or drink alcohol. MEDICAL ILLNESSES: 1. Hypertension. 2. Chronic kidney disease. 3. Status post cerebrovascular accident x2 with residual left-sided weakness. 4. Colon polyp in 2017, and was seen by Dr. Billy Centeno at that time. SURGERIES: None. MEDICATIONS: Include hydralazine, atenolol, minoxidil, nifedipine, and Ditropan. FAMILY HISTORY: Unremarkable. REVIEW OF SYSTEMS: Constitutional: No history of fever or chills. No history of weight loss. Respiratory system: No history of chronic cough, hemoptysis, dyspnea. Cardiovascular system: No chest pain, no palpitation, no dyspnea, orthopnea, or PND. Gastrointestinal: No abdominal pain, no nausea, no vomiting. No history of hematochezia or melena. Genitourinary: Unremarkable. Musculoskeletal: Unremarkable. Endocrine: Unremarkable. Hematological: Unremarkable. PHYSICAL EXAMINATION: GENERAL: The patient appears very comfortable. He is in no distress. VITAL SIGNS: Afebrile, pulse is 86, blood pressure 125/72. HEENT: Conjunctivae clear. NECK: Supple. No adenitis or thyromegaly noted. CARDIOVASCULAR SYSTEM: First and second heart sounds. LUNGS: Clear to auscultation. ABDOMEN: Distended, but soft to palpate. Abdomen is nontender. There is no organomegaly or masses. Bowel sounds are active. EXTREMITIES: No edema. LABORATORY DATA: Shows WBC 8500, hemoglobin 12.2, hematocrit 36.8, platelet count 183,000, polymorphs 75, lymphocytes 9. Chemistries: Sodium 149, potassium 3.9, chloride 117, bicarb 20, BUN is 72, creatinine is 3.77, glucose 198, calcium 9.3, bilirubin 0.8, AST 22, ALT 22, alkaline phosphatase 43, lipase 66. Abdominal CAT scan done shows on admission, no evidence of small- bowel obstruction. It does show dilation of_ gastric lumen with large amount of debris. CLINICAL IMPRESSION: A 71-year-old black male with abdominal distention with marked distention of stomach. The patient has abdominal pain, no nausea or vomiting. A NG tube on admission revealed 1900 mL of gastric contents. Probably clear whether he has gastroparesis or gastric outlet obstruction. Although, he has distal stomach, he has no nausea, no vomiting. PLAN: We will plan for EGD tomorrow to rule out any pyloric obstruction. If there is no bowel obstruction, consider gastric emptying study and also small bowel series. [facility]
[2017-07-08] MEDS: NIFEdipine 10 MG CAP PO SCH ×4 (09:00→20:35)
[2017-07-08] MEDS: Dextrose 5 %-0.45 % NaCl 1,000 ML IV SCH ×2 (09:00→17:45)
[2017-07-08] MEDS: Oxybutynin 5 MG TAB PO SCH ×2 (09:00→21:05)
[2017-07-08] MEDS: Polyethylene Glycol 3350 17 GM Packet PO SCH (09:00)
[2017-07-08] MEDS: hydrALAZINE 25 MG TAB PO SCH ×4 (09:00→20:34)
[2017-07-08] MEDS: Atenolol 50 MG TAB PO SCH ×2 (09:00→20:34)
[2017-07-08] MEDS: Minoxidil 10 MG TAB PO SCH (09:00)
[2017-07-08] MEDS ORDERED: PHENYLEPHRINE-NS 100 MCG/ML 10 ML SYRINGE ONE ×2 (09:24→20:09)
[2017-07-08] MEDS ORDERED: ePHEDrine/0.9% NaCl/PF SYRINGE 50 mg/10 ml ONE ×2 (09:29→20:09)
[2017-07-08 10:21] LABS: CKMB 0.8 ng/mL (0-6.6); Troponin I 0.062 ng/mL (< 0.028)
--- NOTE | 2017-07-08 10:56 | RAD ---
PORTABLE CHEST: Date: 07/08/17 HISTORY: Cough and congestion. Possible aspiration. Comparison made to supine chest film of 07/05/17. FINDINGS: There is increased density in the right infrahilar region and extending into the right cardiophrenic angle when compared to the prior study. This could represent right lung base infiltrate associated wi th aspiration. Continued close follow-up recommended. Lung rueda otherwise appear clear and unchanged. A NG tube is in place with tip just beyond the EG j unction. IMPRESSION: Question new right infrahilar infiltrate. POS: [facility]
[2017-07-08 11:02] LABS: Anion Gap 14 mmol/L (10-20); BUN (Urea Nitrogen) 81 mg/dL (8.4-25.7); Calc. Creatinine Clearance 18 mL/min (70-130); Calcium 8.5 mg/dL (7.8-10.44); Carbon Dioxide 24 mmol/L (23-31); Chloride 116 mmol/L (98-107); Estimated GFR-MDRD 17; Glucose 140 mg/dL (80-115); Potassium 3.9 mmol/L (3.5-5.1); Sodium 150 mmol/L (136-145)
[2017-07-08 11:31] LABS: Band 9 % (5-11); Hemoglobin 11.2 g/dL (14.0-18.0); Lymphocytes 16 % (21-51); MDiff Complete? YES; Mean Corpuscular HGB CONC 33.5 g/dL (32.0-36.0); Mean Corpuscular Hemoglobin 30.5 pg (27.0-31.0); Mean Corpuscular Volume 90.9 fl (80.0-94.0); Mean Platelet Volume 7.6 fL (7.4-10.4); Monocytes 3 % (0-10); Neutrophil 71 % (42-75); Platelet Count 175 thou/uL (130-400); RBC Distribution Width 12.7 % (11.5-14.5); Reactive Lymphocytes 1 % (0-10); Red Blood Cell (RBC) Count 3.66 mill/uL (4.70-6.10); White Blood Cell (WBC) Count 4.3 thou/uL (4.8-10.8)
[2017-07-08] MEDS ORDERED: Albumin 5% 500 ML ONE (12:22)
[2017-07-08 12:43] LABS: Actual Bicarbonate (HCO3a) 24.6 mEq/L (22-26); Base Excess (BEa) -2.9 mEq/L (0 (+/-) 2.5); CO2 Tension 55.9 mmHg (35.0-45.0); Calcium, Ionized 1.2 mmol/L (1.12-1.30); Carboxyhemoglobin (COHb) 1.3 gm% (0.0-3.0); Hematocrit-ABG 31.8 % (42.0-52.0); Hemoglobin (Hb) 11.1 g/dL (14.0-18.0); Potassium - ABG Lab 4.5 mmol/L (3.70-5.30); pH, Arterial 7.26 (7.35-7.45)
[2017-07-08 12:44] LABS: ALV-art Gradient 571.025 (0-20); O2 Tension (PaO2) 72.1 mmHg (80.0-100.0); Puncture Site RRA
--- NOTE | 2017-07-08 13:30 | RAD ---
PORTABLE SUPINE CHEST: Date: 07/08/17 HISTORY: Shortness of breath. On ventilator. Possible pneumonia follow-up. Comparison made to film from earlier today taken at 1000 hours. FINDINGS: There is now confluent bilateral perihilar infiltrates which have occurred since the earlier exam sug gesting bilateral edema. ET tube is in place. Tip is positioned above the dion. NG tube remains in place. IMPRESSION: New bilateral perihilar confluent infiltrates have developed. POS: [facility]
[2017-07-08] MEDS: Norepinephrine 8 MG/0.9% NS 250 ML IVPB SCH ×2 (13:32→20:23)
[2017-07-08 14:18] LABS: Actual Bicarbonate (HCO3a) 22.4 mEq/L (22-26); Base Excess (BEa) -2.1 mEq/L (0 (+/-) 2.5); CO2 Tension 37.7 mmHg (35.0-45.0); O2 Tension (PaO2) 51.3 mmHg (80.0-100.0); pH, Arterial 7.39 (7.35-7.45)
[2017-07-08 14:19] LABS: Hematocrit-ABG 29.5 % (42.0-52.0)
[2017-07-08 14:20] LABS: Calcium, Ionized 1.2 mmol/L (1.12-1.30); Carboxyhemoglobin (COHb) 1.2 gm% (0.0-3.0); Hemoglobin (Hb) 10.7 g/dL (14.0-18.0); Potassium - ABG Lab 3.2 mmol/L (3.70-5.30); Puncture Site A-LINE
[2017-07-08 14:21] LABS: ALV-art Gradient 614.575 (0-20)
--- NOTE | 2017-07-08 14:21 | RAD ---
CHEST 1 VIEW: Date: 07/08/17 HISTORY: Central line placement. COMPARISON: Earlier exam same date. FINDINGS: Cardiac silhouette magnified. Pulmonary vasculature remains engorged with dense bilateral perihilar i nfiltrates. Mediastinum is midline with endotracheal catheter and nasogastric tube. Tip of a right internal jugular central venous catheter projects over the cavoatrial junction. No sherron dence of pneumothorax. IMPRESSION: Right subclavian central venous catheter is in good radiographic position. Pulmonary edema and other findings are otherwise stable. POS: [facility]
--- NOTE | 2017-07-08 15:31 | OP ---
DATE OF PROCEDURE: 07/08/2017 OPERATIVE PROCEDURE: Esophagogastroduodenoscopy. PREOPERATIVE DIAGNOSES: A 71-year-old -[place] male with abdominal distention, abdominal CAT scan shows markedly dilated stomach and no small bowel obstruction. It is probably clear that the p atient has gastric outlet obstruction versus ileus. The patient is undergoing esophagogastroduodenos copy. POSTOPERATIVE DIAGNOSES: 1. Erosive esophagitis, mostly from gas retention. 2. Large amount of liquids in the stomach, about 1650 mL of fluid aspirated during the procedure. 3. Hiatus hernia. 4. Markedly dilated stomach, the scope kept looping up in the stomach. 5. No pyloric stenosis seen as the scope advanced into the duodenal bulb, descending duodenum. PROCEDURE IN DETAIL: The patient was placed on his left lateral position and was given sedation by A nesthesia Department. A Pentax video gastroscope under direct vision was passed down the oropharynx into the esophagus. The patient had a large amount of dark brownish thin liquids in the esophagus wa s suctioned. The mucosa appears to have esophagitis with erosions. This is most likely from gastric tension I believe. The scope was advanced into the stomach and there is large amount of liquid seen . About 1650 mL of fluid aspirated during the procedure. He still has some more left. The stomach is markedly dilated. The scope kept looping up. The stomach was decompressed as possible and again I try to advance into the gastric antrum and finally I was able to get into the duodenal bulb, descen ding duodenum. There is some dark fluid seen in the duodenum. No definite pyloric obstruction seen. The stomach was decompressed and the scope removed. RECOMMENDATIONS: 1. N.p.o. for now. 2. NG tube for suction. 3. Consider upper GI series with small bowel follow through hopefully tomorrow after adequate decomp ression of the stomach. 4. IV PPI.
[2017-07-08] MEDS ORDERED: Succinylcholine Chloride 20 MG/ML 10 ml SYRINGE FS ONE (17:00)
[2017-07-08] MEDS ORDERED: EPINEPHrine 1 MG/10 ML Abboject SYRINGE ONE (17:00)
[2017-07-08] MEDS ORDERED: Sodium Bicarb 50 MEQ/50 ML Abboject 8.4% SYRINGE ONE (17:00)
--- NOTE | 2017-07-08 17:45 | CON ---
DATE OF CONSULTATION: 07/08/2017 ICU CRITICAL CARE NOTE HISTORY OF PRESENT ILLNESS: A 71-year-old -[place] gentleman, who [facility] with [facility] distention, got history from Anesthesia, stating that the endoscopy was performed by GI and large volume of gastric contents were aspirated without any obvious diagnosis. Postprocedure , he remained hypotensive. The patient is awake, responsive and was given IV fluids 700 mL to mainta in blood pressure. There is still a large volume of NG aspirate coming out with an NG tube of 500 mL . He then proceeded to apparently have a respiratory arrest without loss of any pulse. He was intubate d by the Anesthesia and transferred to the ICU. We are being consulted. The patient was recently discharged from the hospital and readmitted on 07/06/2017 with a diagnosis o f abdominal distention, etiology unclear. PAST MEDICAL HISTORY: Hypertension, renal failure, history of cerebrovascular accident with left-elvin ed weakness. He is in the [facility]. MEDIATIONS: He has a long list of medication from the [facility], hydralazine 100 mg 4 times a day , oxybutynin 5 mg twice a day, Adalat 30 four times a day, minoxidil 100 b.i.d. ALLERGIES: None. PAST SURGICAL HISTORY: Recent endoscopy. Right arm surgery. TOBACCO: None. ALCOHOL: None. Apparently, he was previously alcoholic per the previous notes. PHYSICAL EXAMINATION: VITAL SIGNS: His blood pressure is 60, pulse is 100, unresponsive, respiratory rate 30, and temperat ure 98. CHEST: Extensive rhonchi and crackles. CARDIAC: Sinus tachycardia. ABDOMEN: Soft, distended. NEUROLOGIC: He has got left-sided hemiparesis. LABORATORY DATA: Stat chest x-ray and blood gasses well being adjusted and have been ordered. IMPRESSION: 1. Hypertension. 2. Aspiration pneumonia. 3. Abdominal distension. 4. Cerebrovascular accident. 5. Chronic renal failure. Baseline creatinine is 4.28, BUN is 81, white count 4000, hemoglobin and hematocrit 11 and 33, and platelet 175. PLAN: IV fluid challenge, antibiotics, nebulizer treatments, steroids, proton pump inhibitors for DV T prophylaxis was initiated. We will follow. Forty-five minutes critical care time.
[2017-07-08] MEDS: Sodium Chloride 0.9% 1,000 ML IV SCH ×2 (19:22→20:24)
[2017-07-08] MEDS ORDERED: Lidocaine 1% PF 5 ML VIAL ONE (20:09)
[2017-07-08] MEDS ORDERED: PROPOFOL 200 MG/20 ML VIAL ONE (20:09)
[2017-07-08] MEDS: Cefepime 1 GM, Admixture Fee 1 EACH in Sterile Water 10 ML SLOW IVP SCH (20:43)
[2017-07-08] MEDS: Heparin 5,000 UNITS/ML VIAL SC SCH (20:44)
[2017-07-08] MEDS ORDERED: Cefepime 1 GM in Sodium Chloride 0.9% 100 ML IVPB SCH (21:00)
[2017-07-08] MEDS: Albumin 25% 25 GM/100 ML BOT IVPB SCH (21:00)
[2017-07-09] MEDS: Albumin 25% 25 GM/100 ML BOT IVPB SCH ×4 (03:49→20:32)
[2017-07-09] MEDS: Dextrose 5 %-0.45 % NaCl 1,000 ML IV SCH (03:59)
[2017-07-09 05:22] LABS: Anion Gap 14 mmol/L (10-20); BUN (Urea Nitrogen) 88 mg/dL (8.4-25.7); Calc. Creatinine Clearance 15 mL/min (70-130); Calcium 8.4 mg/dL (7.8-10.44); Carbon Dioxide 25 mmol/L (23-31); Chloride 116 mmol/L (98-107); Estimated GFR-MDRD 13; Glucose 108 mg/dL (80-115); Potassium 4.4 mmol/L (3.5-5.1); Sodium 151 mmol/L (136-145)
[2017-07-09] MEDS: Sodium Chloride 0.9% 1,000 ML IV SCH (05:28)
[2017-07-09 05:45] LABS: Band 30 % (5-11); Hemoglobin 8.4 g/dL (14.0-18.0); Lymphocytes 4 % (21-51); MDiff Complete? YES; Mean Corpuscular HGB CONC 33.8 g/dL (32.0-36.0); Mean Corpuscular Hemoglobin 30.7 pg (27.0-31.0); Mean Corpuscular Volume 90.9 fl (80.0-94.0); Mean Platelet Volume 8.2 fL (7.4-10.4); Metamyelocyte 7 % (0-0); Monocytes 1 % (0-10); Neutrophil 58 % (42-75); PLT Morphology Comment Appears Decreased; Platelet Count 104 thou/uL (130-400); RBC Distribution Width 12.7 % (11.5-14.5); RBC Morphology Normal; Red Blood Cell (RBC) Count 2.72 mill/uL (4.70-6.10); White Blood Cell (WBC) Count 12.6 thou/uL (4.8-10.8)
[2017-07-09] MEDS: Sodium Chloride 0.45% 1,000 ML IV SCH ×2 (09:00→19:53)
[2017-07-09 09:01] LABS: Actual Bicarbonate (HCO3a) 22.4 mEq/L (22-26); Base Excess (BEa) -0.1 mEq/L (0 (+/-) 2.5); CO2 Tension 30.9 mmHg (35.0-45.0); Carboxyhemoglobin (COHb) 0.9 gm% (0.0-3.0); Hematocrit-ABG 21.8 % (42.0-52.0); O2 Tension (PaO2) 166.3 mmHg (80.0-100.0); pH, Arterial 7.48 (7.35-7.45)
[2017-07-09 09:02] LABS: ALV-art Gradient 329.825 (0-20); Calcium, Ionized 1.1 mmol/L (1.12-1.30); Potassium - ABG Lab 4.3 mmol/L (3.70-5.30); Puncture Site A-LINE
--- NOTE | 2017-07-09 09:11 | CON ---
DATE OF CONSULTATION: 07/09/2017 SERVICE: Renal Medicine. HISTORY OF PRESENT ILLNESS: Mr. Davies is a 71-year-old black man, who was admitted for abdominal p ain and distention. The patient was seen by the Renal Service prior to that said admission. He had chronic renal failure/acute kidney injury as well as labile hypertension. He was recently diagnosed with a CVA secondary to a bleed. On admission, his renal function was noted to have worsened in the last few days. A GI consult was done, and an upper GI endoscopy was done, which showed copious amoun ts of fluid in the abdomen. However, during the said procedure, patient became hemodynamically unsta ble. Several liters of fluid were given. I have decided to continue the salt poor albumin at 25 gra ms IV q.6 hours. His renal function continues to worsen, but his urine output has somewhat picked up . He was also hypotensive and was placed on pressor support. However, they were able to wean this o ff last night. REVIEW OF SYSTEMS: Not obtainable since the patient is intubated and on ventilator support. PAST MEDICAL HISTORY: 1. Labile hypertension. 2. Status post acute kidney injury. 3. Chronic renal failure. 4. Status post cerebrovascular accident secondary to a bleed. PAST SURGICAL HISTORY: 1. Status post right arm surgery. 2. Status post colonoscopy with polypectomy, recently status post upper GI endoscopy. 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 Lives in [place]? No IV luis g abuse. Currently no smoking. ALLERGIES: None. TRAUMA: None. IMMUNIZATIONS: Unknown. HOSPITALIZATIONS: Please see past medical history. FAMILY HISTORY: Noncontributory. PHYSICAL EXAMINATION: VITAL SIGNS: Blood pressure is 120/50, heart rate 85, respiratory rate 20, pulse ox 100%. GENERAL EXAM: The patient is awake, but not following commands, intubated on ventilator support. SKIN: Adequate turgor. HEENT: Slightly pale conjunctivae, anicteric sclerae. NECK: No neck mass, no carotid bruits, no JVD. CHEST: No deformities. LUNGS: Decreased breath sounds. HEART: Normal sinus rhythm. No murmur, no gallops, no rubs. ABDOMEN: Globular, soft, nontender, no masses. EXTREMITIES: No edema, no deformities. NEUROLOGICAL EXAM: He has left-sided weakness. MEDICATIONS: 07/09/2017, DuoNeb q.6, Tenormin 100 mg p.o. b.i.d., cefepime 1 gram IV daily, currentl y on heparin 5000 units subcu b.i.d., on albumin 25 grams IV q.6 hours, Solu-Medrol 40 mg IV q.6 hour s, minoxidil 10 mg daily on hold, nifedipine 30 mg p.o. q.i.d. - on hold, Ditropan 5 mg p.o. b.i.d. o n hold, Protonix 40 mg IV every day, normal saline at 100 mL per hour. LABORATORY DATA: Laboratories of 07/09/2017, white count 12.6, hemoglobin 8.4, sodium 151, potassium 4.4, chloride 116, carbon dioxide 25, BUN 88, creatinine 5.27, GFR 13 mL per minute. Calcium 8.4. 07/08/2017, chest x-ray new right infrahilar infiltrate. ASSESSMENT AND PLAN: 1. Hypernatremia. Change IV fluid to D5 half normal saline to run at 100 mL per hour. 2. Acute kidney injury/chronic renal failure. I suspect a possibility of hemodynamically-mediated r enal dysfunction versus an overt acute tubular necrosis. We will review his urine chemistries as wel l as urinalysis. Continue supportive care. There is no indication for any emergent hemodialysis wit h this patient. 3. Hypotension, much improved, off Levophed. Continue D5 half normal saline at 100 mL per hour. Co ntinue albumin infusion. 4. Status post cerebrovascular accident secondary to bleed. Supportive care. 5. Acute respiratory failure, currently intubated on ventilatory support, being followed up by Humaira taylor. Overall, prognosis remains guarded.
[2017-07-09] MEDS: Pantoprazole 40 MG VIAL IVP SCH (09:19)
[2017-07-09] MEDS: Atenolol 50 MG TAB PO SCH (09:51)
[2017-07-09] MEDS: hydrALAZINE 25 MG TAB PO SCH (09:51)
--- NOTE | 2017-07-09 09:51 | RAD ---
CHEST 1 VIEW: Date: 07/09/17 HISTORY: Dyspnea. COMPARISON: 07/08/17. FINDINGS: Cardiac silhouette is magnified and enlarged. Pulmonary vasculature engorged. Dense areas of infiltra te throughout each lung are similar in appearance to the prior exam. Mediastinum midline. Lines and t ubes appear unchanged in position. railroad repairer leads overlie the chest. IMPRESSION: Dense patchy bilateral infiltrates and other findings are stable. POS: [facility]
[2017-07-09] MEDS: Minoxidil 10 MG TAB PO SCH (09:52)
[2017-07-09] MEDS: Polyethylene Glycol 3350 17 GM Packet PO SCH (09:53)
[2017-07-09] MEDS: Heparin 5,000 UNITS/ML VIAL SC SCH ×2 (09:53→20:32)
[2017-07-09] MEDS: NIFEdipine 10 MG CAP PO SCH (09:53)
[2017-07-09] MEDS: Cefepime 1 GM, Admixture Fee 1 EACH in Sterile Water 10 ML SLOW IVP SCH ×2 (09:58→20:32)
[2017-07-09] MEDS: Oxybutynin 5 MG TAB PO SCH ×2 (09:58→19:53)
--- NOTE | 2017-07-09 11:16 | PRG ---
DATE OF SERVICE: 07/09/2017 SUBJECTIVE: Mr. Brad Davies is intubated on the vent, sedated. X-ray still shows diffuse pulmonary infiltrates, probably from aspiration. OBJECTIVE: VITAL SIGNS: Blood pressure is 102/41, pulse 87, sats are better 100%, 70% FIO2. I's and O's are 20 87 in, 460 out. Afebrile. CHEST: Reveals bilateral rhonchi, crackles. CARDIAC: Sinus tachycardia. ABDOMEN: Soft, without any masses. LABORATORY DATA: His pO2 is 166, pCO2 30%, 48, rate of 20, 75%, PEEP of 10. Sodium 151. BUN and cr eatinine are 88 and 5.25. IMPRESSION: 1. Respiratory failure, aspiration pneumonia. 2. Severe deconditioning. 3. Chronic renal failure. 4. Previous cerebrovascular accident. 5. Gastric distention. PLAN: He is not weanable. Continue antibiotics, steroids, nebulizer treatment, pressors. We will follow. One-half hour critical care time.
[2017-07-09 11:32] LABS: Bilirubin Negative (Negative); Blood, Urine Small (Negative); Clarity CLOUDY (Clear); Glucose, Urine (Dipstick) Negative (Negative); Leukocyte Moderate (Negative); Nitrite Negative (Negative); Protein, Urine (Dipstick) 100 mg/dL (Neg-Trace); Specific Gravity, Urine 1.016 (1.002-1.036); Urobilinogen 0.2 mg/dL (0.2-1.0); pH, Urine 5.5 (5.0-9.0)
[2017-07-09 11:34] LABS: Bacteria/HPF None Seen HPF (None Seen)
[2017-07-09 11:35] LABS: Pathc Cast-AUWi Flag 3.05 (0-2.49); Yeast-AUWi Flag 423.2 (0-25.0)
[2017-07-09 11:55] LABS: Crystals/HPF 2+ AMORPH URATES HPF (Negative); Hyaline Casts/LPF 0-3 HYALINE CAST LPF (0-3 Hyaline); Yeast-All Forms None Seen HPF (None Seen)
[2017-07-09 11:56] LABS: Creatinine, Urine 97.34 mg/dL (63-166); Other Casts/LPF 0-3 COARSE GRAN LPF (0-3 Hyaline); Renal Epithelial None Seen HPF (0-3); Transitional Epithelial NONE SEEN HPF (0-3)
[2017-07-10] MEDS: Albumin 25% 25 GM/100 ML BOT IVPB SCH ×3 (02:51→14:20)
[2017-07-10] MEDS: Sodium Chloride 0.45% 1,000 ML IV SCH ×2 (03:25→14:20)
[2017-07-10 06:14] LABS: Anion Gap 17 mmol/L (10-20); BUN (Urea Nitrogen) 105 mg/dL (8.4-25.7); Calc. Creatinine Clearance 14 mL/min (70-130); Calcium 8.4 mg/dL (7.8-10.44); Carbon Dioxide 22 mmol/L (23-31); Chloride 115 mmol/L (98-107); Estimated GFR-MDRD 13; Glucose 127 mg/dL (80-115); Potassium 4.5 mmol/L (3.5-5.1); Sodium 149 mmol/L (136-145)
[2017-07-10 06:27] LABS: Band 24 % (5-11); Hemoglobin 6.6 g/dL (14.0-18.0); Lymphocytes 3 % (21-51); MDiff Complete? YES; Mean Corpuscular HGB CONC 32.7 g/dL (32.0-36.0); Mean Corpuscular Hemoglobin 29.4 pg (27.0-31.0); Mean Corpuscular Volume 90.1 fl (80.0-94.0); Mean Platelet Volume 8.9 fL (7.4-10.4); Monocytes 1 % (0-10); Neutrophil 72 % (42-75); PLT Morphology Comment Appears Decreased; Platelet Count 103 thou/uL (130-400); RBC Distribution Width 12.8 % (11.5-14.5); Red Blood Cell (RBC) Count 2.24 mill/uL (4.70-6.10); White Blood Cell (WBC) Count 14.1 thou/uL (4.8-10.8)
[2017-07-10 07:17] LABS: Actual Bicarbonate (HCO3a) 20.8 mEq/L (22-26); Base Excess (BEa) -2.9 mEq/L (0 (+/-) 2.5); CO2 Tension 30.7 mmHg (35.0-45.0); Calcium, Ionized 1.1 mmol/L (1.12-1.30); Carboxyhemoglobin (COHb) 0.9 gm% (0.0-3.0); Hematocrit-ABG 17.9 % (42.0-52.0); Hemoglobin (Hb) 6.4 g/dL (14.0-18.0); O2 Tension (PaO2) 83.7 mmHg (80.0-100.0); Potassium - ABG Lab 4.3 mmol/L (3.70-5.30); pH, Arterial 7.45 (7.35-7.45)
[2017-07-10 07:18] LABS: ALV-art Gradient 231.925 (0-20); Puncture Site ALINE
--- NOTE | 2017-07-10 08:15 | PRG ---
DATE OF SERVICE: 07/10/2017 SUBJECTIVE: Mr. Brad Davies is a 71-year-old male hospitalized on Monday because o f abdominal distention and large amount of gastric retention. Initially, he had an NG tube placed an d drained close to 2000 mL of fluid. Subsequently, his abdomen got softer and . He underwent E GD yesterday morning and he was found to have a large amount of gastric retention. Close to 1600 mL of fluid aspirated, and he had NG tube placed. The NG tube kept draining more than 700 mL of fluid. Unfortunately, he became hypoxia and hypotension after procedure. The patient was given IV bolus an d his blood pressure actually started coming up. Suddenly he started having some difficulty breathin g, and he was intubated and was placed on the ventilator. His chest x-ray showed some infrahilar ___ __ right lung, but subsequently the chest x-ray revealed bilateral pulmonary infiltrates indicative o f aspiration pneumonia. He has been on vasopressors overnight, but now he is off vasopressors. His blood pressure is actually stable. The NG is still draining dark brownish liquids. This morning, he had 225 mL out. OBJECTIVE: GENERAL: The patient is awake and tried to move around. His abdomen is got better. VITAL SIGNS: Today, heart rate is around 93, blood pressure is 119/67, this is off vasopressors. CARDIOVASCULAR SYSTEM: First and second heart sounds normal. LUNGS: Some bilateral crepitations. ABDOMEN: Less distended and soft. Abdomen is actually nontender. Bowels normoactive. LABORATORY DATA: The lab data from today, CBC has dropped down from 12.2 on admission to 8.4 today, hematocrit 24.7, platelet count is 104, polymorphs 58, bandemia of 30%. Chemistry panel: Sodium is 151, potassium 4.4, chloride 116, bicarbonate 25, BUN of up to 88, creatinine is 5.27. Troponin 0.60 2. CLINICAL IMPRESSION: 1. Hypotension, aspiration, and sepsis. He does have bilateral pneumonia. He is on IV antibiotics. 2. Worsening kidney function, most likely because of hypotension and possibly sepsis. 3. Anemia. 4. Gastric retention and gastroparesis with more than 225 mL out overnight. Does not seem to have p yloric obstruction. Once his clinical condition is stable, I believe that he is probably to have an upper GI series small bowel follow through. I did read Dr. Rose's note and he is clearly not weanable at the present shasta e. I would recommend continuous ventilator support, IV antibiotics and IV fluids.
[2017-07-10] MEDS: Oxybutynin 5 MG TAB PO SCH ×2 (09:00→21:28)
[2017-07-10] MEDS: Cefepime 1 GM, Admixture Fee 1 EACH in Sterile Water 10 ML SLOW IVP SCH ×2 (09:20→20:18)
[2017-07-10] MEDS: Heparin 5,000 UNITS/ML VIAL SC SCH (09:22)
[2017-07-10] MEDS: Pantoprazole 40 MG VIAL IVP SCH (09:23)
[2017-07-10] MEDS: Polyethylene Glycol 3350 17 GM Packet PO SCH (09:23)
--- NOTE | 2017-07-10 09:31 | PRG ---
DATE OF SERVICE: 07/10/2017 SUBJECTIVE: Mr. Davies is a 71-year-old black male who was seen by the Renal Service for his acute kidney injury. It was initially thought he may have plan hemodynamically mediated renal dysfunction. This has remained unimproved. The possibility of acute tubular necrosis always remains with this p atient. Currently, he is being optimized with his hemodynamics. This morning he was noted to be ane aleena. I did discuss with the about the future dialysis if needed. The said, we can consider proc eeding with dialysis. PHYSICAL EXAMINATION: GENERAL: The patient is sedated, intubated on ventilator support. VITAL SIGNS: Blood pressure is 137/56, heart rate 83, respiratory rate 18, temperature 98.2, pulse o x 100%. HEENT: Pale conjunctivae, anicteric sclerae. NECK: No neck mass, no carotid bruits, no JVD. CHEST: No deformities. LUNGS: Decreased breath sounds. HEART: Normal sinus rhythm. No murmur, no gallops, no rubs. ABDOMEN: Globular, soft, nontender. EXTREMITIES: No edema. NEUROLOGIC: The patient is sedated. Decreased motor left side. MEDICATIONS: 07/10/2017 - Reviewed. LABORATORY: 07/10/2017 - White count 14.1, hemoglobin 6.6, sodium 149, potassium 4.5, chloride 115, carbon dioxide 22, BUN 105, creatinine 5.27, GFR 13 mL per minute. Calcium 8.4. ASSESSMENT AND PLAN: 1. Acute kidney injury - consider hemodynamically mediated dysfunction versus early acute tubular ne crosis. Creatinine has somewhat stabilized in the last 48 hours. Continue to optimize hemodynamics. Continue current IV fluid. 2. Anemia. We will transfuse 2 units packed RBC. 3. Hypernatremia - currently on D5 half normal saline at 100 mL per hour. 4. Hypertension/sepsis syndrome - continue supportive care. Currently on pressor support. Overall, prognosis remains guarded.
--- NOTE | 2017-07-10 09:32 | RAD ---
CHEST ONE VIEW: Comparison: 07-09-17 History: Respiratory distress. Ventilated patient. FINDINGS: Re-demonstration of endotracheal tube and nasogastric tube. Persistent interstitial and alveolar opac ities of the lung parenchyma. Stable configuration of the cardiac silhouette. IMPRESSION: No significant interval change. POS: [facility]
--- NOTE | 2017-07-10 09:48 | PRG ---
DATE OF SERVICE: 07/10/2017 SERVICE: Pulmonary Medicine INTERVAL HISTORY: The patient is doing fine from a cardiovascular and respiratory standpoint. He is breathing comfortably on mechanical ventilation. He is not requiring any sedation currently. He is following some simple commands. PHYSICAL EXAMINATION: VITAL SIGNS: Afebrile, pulse 83, blood pressure 133/77, respirations 18, saturation 100% on 40% FiO2 and a PEEP of 5. GENERAL: The patient is awake, alert, in no apparent distress. LUNGS: Decent air entry bilaterally. There is no prolonged expiratory phase or wheezing appreciated. HEART: Normal rate, regular. ABDOMEN: Soft. Bowel sounds are positive. Nondistended. No rebound or guarding is present. MUSCULOSKELETAL: No cyanosis or clubbing. There is no pitting in the bilateral lower extremities. NEUROLOGIC: Grossly nonfocal. LABORATORY DATA: WBC 14.1, hemoglobin 6.6 and significantly trending downward, platelets 103,000. Band count is increasing to 24. PH 7.45, pCO2 31, pO2 83. Creatinine 5.27, which is significantly above baseline, BUN 105, anion gap 17, bicarbonate 22, sodium 149 and down trending, chloride 115 and down trending. Urinalysis is essentially unremarkable. IMAGING: Chest x-ray demonstrates right-sided infiltrate. There is a right subclavian central venous catheter which terminates in decent position. There is a likely pleural parenchymal disease in the left base. Pleural effusion is suspected. Endotracheal tube remains roughly 3-4 cm above the level of the dion. Echocardiogram demonstrates 60-65% ejection fraction. This was a limited study. ASSESSMENT: 1. Acute hypoxic respiratory failure. 1. Abdominal distention, resolved. 2. Acute blood loss anemia. 3. Healthcare-associated pneumonia, secondary to overt aspiration. PLAN: The patient will be placed on a spontaneous breathing trial. At the end of 30 minutes, extubation will be considered, though we will need to prove he is not still bleeding. He has had a significant drop in his red blood cell count. We do not have a source as of yet. Multiple adjustments have been made to the ventilator. CRITICAL CARE TIME: 30 minutes. [facility]
[2017-07-10 11:19] LABS: ALT (SGPT) 10 U/L (8-55); AST (SGOT) 17 U/L (5-34); Albumin 4.2 g/dL (3.4-4.8); Alkaline Phosphatase 33 U/L (40-150); Bilirubin, Direct 0.5 mg/dL (0.1-0.3); Bilirubin, Total 0.8 mg/dL (0.2-1.2); Protein, Total 5.9 g/dL (5.8-8.1)
--- NOTE | 2017-07-10 12:40 | EKG ---
Test Reason : Blood Pressure : / mmHG Vent. Rate : 087 BPM Atrial Rate : 087 BPM P-R Int : 130 ms QRS Dur : 086 ms QT Int : 422 ms P-R-T Axes : 048 000 -53 degrees QTc Int : 507 ms Normal sinus rhythm Marked ST abnormality, possible inferior subendocardial injury Prolonged QT Abnormal ECG When compared with ECG of 26-JUN-2017 07:50, (Unconfirmed) T wave inversion no longer evident in Inferior leads Confirmed by DR. Jessica ALANIZ ([id number]) on 07/10/2017 12:39:40 PM Referred By: SARAVANAN Confirmed By:DR. Jessica ALANIZ
[2017-07-10 14:06] LABS: CO2 Tension 60.8 mmHg (35.0-45.0); pH, Arterial 7.16 (7.35-7.45)
[2017-07-10 14:07] LABS: Actual Bicarbonate (HCO3a) 21.3 mEq/L (22-26); Base Excess (BEa) -7.1 mEq/L (0 (+/-) 2.5); Hematocrit-ABG 23.3 % (42.0-52.0); Hemoglobin (Hb) 7.4 g/dL (14.0-18.0); O2 Tension (PaO2) 34.2 mmHg (80.0-100.0); Potassium - ABG Lab 4.9 mmol/L (3.70-5.30)
[2017-07-10 14:08] LABS: Calcium, Ionized 1.2 mmol/L (1.12-1.30); Puncture Site ALINE
[2017-07-10 15:41] LABS: Hemoglobin 6.4 g/dL (14.0-18.0)
[2017-07-10 15:41] LABS: Actual Bicarbonate (HCO3a) 20.6 mEq/L (22-26); Base Excess (BEa) -3.7 mEq/L (0 (+/-) 2.5); Carboxyhemoglobin (COHb) 0.9 gm% (0.0-3.0); O2 Tension (PaO2) 297.6 mmHg (80.0-100.0); Potassium - ABG Lab 4.5 mmol/L (3.70-5.30); pH, Arterial 7.41 (7.35-7.45)
[2017-07-10 15:42] LABS: Calcium, Ionized 1.1 mmol/L (1.12-1.30); Puncture Site ALINE
[2017-07-10] MEDS ORDERED: Midazolam HCl 2 mg/2 ml Vial ONE (17:12)
--- NOTE | 2017-07-10 18:20 | CT ---
CT CHEST AND ABDOMEN AND PELVIS PERFORMED WITHOUT CONTRAST ENHANCEMENT: HISTORY: The patient has lost 6 to 8 units of blood with an unknown source. COMPARISON: A CT abdomen and pelvis, which was performed on 07/06/2017. FINDINGS: CHEST: The thyroid gland is prominent. There is considerable artifact. It is difficult to assess f or thyroid nodules, although there is some subtle decreased attenuation within the right lobe. Media stinal structures appear unremarkable on this noncontrast exam. The thoracic aorta is tortuous. No signs of any mediastinal hematoma. There are coronary artery calcifications noted. An NG tube is pr esent with the tip of the tube at the GE junction, and it should be advanced several inches for bett er placement. The lungs show a fluffy, mainly perihilar alveolar pattern, most suggestive of pulmonary edema, with small bilateral effusions, left greater than right, and atelectatic changes in the lung bases, or inf iltrate. There are air bronchograms in the areas, more confluent in the left lower lobe. ABDOMEN: The stomach is no longer distended to the extent it was on the prior examination, suggestin g some slightly wall thickening to the stomach. This is somewhat difficult to assess. Artifact from arm position degrades detail. The liver, spleen, and pancreas regions, as well as the gallbladder, appear grossly unremarkable. There is questionable minimal gallbladder wall thickening present. The right and left adrenal glands and the right and left kidneys are normal in size. There is no sherron dence of any significant free fluid within the abdomen. I do not appreciate any signs of obstruction . The abdominal aorta is normal in caliber. No significant adenopathy. PELVIS: The prostate is enlarged. The Solis catheter is in place. The bladder is decompressed. Th ere is sigmoid diverticulosis noted. There is also a moderate amount of stool in the rectosigmoid re gion. Review of the osseous structures show arthritic changes of the spine. IMPRESSION: 1. Perihilar alveolar lung changes, most compatible with pulmonary edema, with very small bilateral effusions and bibasilar lung changes, consistent with atelectasis or infiltrate. 2. Sigmoid diverticulosis. 3. Moderate amount of stool in the rectosigmoid region. 4. Enlarged prostate with a Solis catheter in place. The bladder is decompressed, but there is sugg estion of some bladder wall thickening. 5. Trace free fluid in the pelvis, slightly more than typically seen in a male. No ascites seen wit hin the abdomen. POS: [facility]
[2017-07-10] MEDS: hydrALAZINE 20 MG/ML VIAL SLOW IVP PRN (19:26)
[2017-07-11] MEDS ORDERED: Furosemide 40 MG/4 ML VIAL SLOW IVP SCH (00:15)
[2017-07-11] MEDS: hydrALAZINE 20 MG/ML VIAL SLOW IVP PRN ×2 (00:25→06:22)
--- NOTE | 2017-07-11 00:25 | PRG ---
DATE OF SERVICE: 07/10/2017 SUBJECTIVE: This is a 71-year-old -[place] male with hypertension, chronic kidney disease, recent CVA. The patient hospitalized with abdominal distention and was found to have gastric distention and dilated stomach on CAT scan. Initially, he was decompressed with NG tube. He had done EGD over the weekend and was found to have large amount of gas retention. He had a 1650 mL of fluid aspirated and also NG tube placed. The NG tube drained another 300 mL of fluid. The patient developed hypotension and hypoxia postprocedure. He was intubated . He is on the ventilator. The patient's abdominal distension markedly improved. Abdomen is soft and nondistended. His vital signs are actually stable. PHYSICAL EXAMINATION: GENERAL: He is on the ventilator. VITAL SIGNS: Pulse is 82, blood pressure 130/70. CARDIOVASCULAR SYSTEM: Lungs within normal limits. ABDOMEN: Soft and nondistended. Abdomen is nontender. LABORATORY DATA: From today, WBC 14,100, hemoglobin is 6.6, hematocrit is 22, platelet count 103,000. BUN is 105, chloride 115. CLINICAL IMPRESSION: 1. Aspiration pneumonia, respiratory failure. 2. Gastric distension, etiology unclear, gastroparesis versus proximal small bowel obstruction.. 3. Worsening kidney function, chronic kidney disease. 4. Recent history of cerebrovascular accident. RECOMMENDATIONS: 1. Continue NG tube suction. Continue to follow up H&H. 2. IV PPI. 3. Transfuse p.r.n. MTDD
[2017-07-11] MEDS ORDERED: Albumin 25% 100 ML ONE (00:51)
[2017-07-11] MEDS: Albumin 25% 25 GM/100 ML BOT IVPB SCH (00:53)
[2017-07-11] MEDS: Sodium Chloride 0.45% 1,000 ML IV SCH (00:53)
[2017-07-11 04:44] LABS: INR-International Normal Ratio 1.3; PTT 32.3 SEC (22.9-36.1); Prothrombin Time 16.4 SEC (12.0-14.7)
[2017-07-11 04:52] LABS: Anion Gap 17 mmol/L (10-20); BUN (Urea Nitrogen) 113 mg/dL (8.4-25.7); Calc. Creatinine Clearance 13 mL/min (70-130); Calcium 8.7 mg/dL (7.8-10.44); Carbon Dioxide 21 mmol/L (23-31); Chloride 114 mmol/L (98-107); Estimated GFR-MDRD 12; Glucose 109 mg/dL (80-115); Potassium 4.1 mmol/L (3.5-5.1); Sodium 148 mmol/L (136-145)
[2017-07-11 05:23] LABS: Band 9 % (5-11); Hemoglobin 9.3 g/dL (14.0-18.0); Lymphocytes 3 % (21-51); MDiff Complete? YES; Mean Corpuscular HGB CONC 33.5 g/dL (32.0-36.0); Mean Corpuscular Hemoglobin 29.5 pg (27.0-31.0); Mean Corpuscular Volume 88.1 fl (80.0-94.0); Mean Platelet Volume 9.6 fL (7.4-10.4); Metamyelocyte 1 % (0-0); Monocytes 4 % (0-10); Myelocyte 1 % (0-0); Neutrophil 82 % (42-75); PLT Morphology Comment Appears Adequate; Platelet Count 142 thou/uL (130-400); RBC Distribution Width 13.4 % (11.5-14.5); Red Blood Cell (RBC) Count 3.17 mill/uL (4.70-6.10); White Blood Cell (WBC) Count 14.8 thou/uL (4.8-10.8)
[2017-07-11] MEDS: niCARdipine HCl 25 MG in Sodium Chloride 0.9% 250 ML 240 ML IVPB PRN ×2 (05:30→07:57)
[2017-07-11] MEDS ORDERED: Nitroglycerin 50 MG/250 ML BOT 250 ML ONE (06:10)
[2017-07-11 08:52] LABS: pH, Arterial 7.44 (7.35-7.45)
[2017-07-11 08:59] LABS: Actual Bicarbonate (HCO3a) 18.9 mEq/L (22-26); Base Excess (BEa) -4.3 mEq/L (0 (+/-) 2.5); CO2 Tension 28.4 mmHg (35.0-45.0); Carboxyhemoglobin (COHb) 1.1 gm% (0.0-3.0); Hematocrit-ABG 29.5 % (42.0-52.0); Hemoglobin (Hb) 10.2 g/dL (14.0-18.0); O2 Tension (PaO2) 51.3 mmHg (80.0-100.0)
[2017-07-11 09:00] LABS: Calcium, Ionized 1.1 mmol/L (1.12-1.30); Puncture Site ALINE
[2017-07-11] MEDS ORDERED: NIFEdipine XL 60 MG TAB PO SCH (09:00)
[2017-07-11] MEDS ORDERED: Minoxidil 2.5 MG TAB PO SCH (09:00)
[2017-07-11] MEDS ORDERED: Propofol 1,000 MG/100 ML VIAL IV PRN (09:08)
--- NOTE | 2017-07-11 09:16 | PRG ---
DATE OF SERVICE: 07/11/2017 RENAL MEDICINE SUBJECTIVE: Mr. aDvies is a 71-year-old black male who recently had CVA secondary to bleed, recently readmitted for abdominal distention. He was also noted to have developed hypotension. For that reason, blood pressure medications have been placed on hold. We are also following this patient for his acute kidney injury secondary to a presumptive hemodynamically mediated renal dysfunction. Last night, he had a decreased urine output and was given one time dose of Lasix. He made one-liter urine output with that Lasix. In addition, he has been restarted on nicardipine drip due to the higher blood pressure. PHYSICAL EXAMINATION: VITAL SIGNS: Blood pressure currently at 141/63, heart rate 76, respiratory rate 12, pulse ox is 90%. GENERAL: Intubated on ventilator support - can follow commands. HEENT: Pinkish conjunctivae, anicteric sclerae. NECK: No neck mass, no carotid bruits, no JVD. CHEST: No deformities. LUNGS: Decreased breath sounds. HEART: Normal sinus rhythm. No murmurs, no gallops, no rubs. ABDOMEN: Globular, soft, nontender, no masses. EXTREMITIES: No edema, no deformities. MEDICATIONS: Medications of 07/11/2017 was reviewed. LABORATORY DATA: Laboratories of 07/11/2017; white count 14.8, hemoglobin 9.3. Sodium 148, potassium 4.1, chloride 114, carbon dioxide 21, BUN 113, creatinine noted at 5.56 with GFR 12 mL per minute, calcium 8.7. ASSESSMENT AND PLAN: 1. Acute kidney injury - creatinine noted slightly high at 5.56. Yesterday, this was 5.27. I do not see any indication for any emergent hemodialysis with this patient. Continue to optimize hemodynamics. I will probably resume normal saline at 100 mL per hour. 2. Labile hypertension - currently on nicardipine drip. Blood pressure is now higher. My plan is to start minoxidil 5 mg once a day and nicardipine at 60 mg XL tab once a day. Adjust blood pressure meds as needed. His overall prognosis remains guarded. Agree with current management. Addendum - nifedipine changed to short - acting tab of 30 mg to tid. MTDD
[2017-07-11] MEDS: Oxybutynin 5 MG TAB PO SCH ×2 (09:42→21:22)
[2017-07-11] MEDS: Pantoprazole 40 MG VIAL IVP SCH (09:42)
[2017-07-11] MEDS: Polyethylene Glycol 3350 17 GM Packet PO SCH (09:43)
[2017-07-11] MEDS: Cefepime 1 GM, Admixture Fee 1 EACH in Sterile Water 10 ML SLOW IVP SCH (09:43)
--- NOTE | 2017-07-11 10:36 | PRG ---
DATE OF SERVICE: 07/11/2017 SERVICE: Pulmonary Medicine. INTERVAL HISTORY: The patient is doing poorly from a respiratory standpoint. Overnight, his oxygen requirements went way up. On the CT scan, it looked like he had massive pulmonary edema that he did develop. It looks like a flash pulmonary edema type pattern. He cannot provide any additional elements of the history as he remains a little encephalopathic. Otherwise, there has been no significant interval change to his condition. He did get a dose of Lasix last night. He had significant urine output, but it did not have a significant impact on his oxygen requirements. PHYSICAL EXAMINATION: VITAL SIGNS: Afebrile, pulse 76, blood pressure 141/63, respirations 12, saturation 98% on 80% FIO2 and a PEEP of 5. GENERAL: The patient is intubated. He is encephalopathic. HEENT: Normocephalic and atraumatic. Sclerae are white, conjunctivae pink. Oral mucosa is moist without lesions. LUNGS: Decent air entry bilaterally. Crackles are present. No prolonged expiratory phase or wheezing is appreciated. HEART: Normal rate and regular. ABDOMEN: Soft. Nontender and nondistended. Bowel sounds are positive. MUSCULOSKELETAL: No cyanosis or clubbing. There is no pitting in the bilateral lower extremities. NEUROLOGIC: Grossly nonfocal. LABORATORY DATA: WBC 14.8, hemoglobin 9.3, making an appropriate response to 2 units yesterday. Platelets 142,000 and trending upward. Neutrophil is 82% with band count improving to 9%. INR 1.3. PH 7.44, pCO2 28, pO2 51, corresponding to saturation of 86%. Creatinine 5.56 and slowly up trending, BUN 113, bicarbonate 21, chloride 114, sodium 148. Urinalysis is essentially unremarkable, although there are some red blood cells and white blood cells identified. IMAGING: CT of the chest, abdomen, and pelvis demonstrates a small amount of free fluid in the belly. There is a significant pulmonary edema that has developed in a short period of time. ASSESSMENT: 1. Acute hypoxic respiratory failure secondary to suspected flash pulmonary edema. 2. Acute blood loss anemia, likely pulmonary hemorrhage syndrome. 3. Healthcare-associated pneumonia secondary to aspiration. 4. Chronic kidney disease. 5. History of cerebrovascular accident. DISCUSSION AND PLAN: We will introduce a little bit of free water at 50 mL per hour. I will initiate tube feeds as the patient is having bowel movements and has good bowel sounds. We will see whether or not he tolerates these things. I will repeat laboratories tomorrow morning including magnesium and phosphorus. We will give an antiglomerular basement membrane antibody and ANCA studies to look for pulmonary hemorrhage syndrome, though I do think that the hypertensive event and flash pulmonary edema was likely the culprit here. Salt containing IV fluids will be interrupted. We will wean away oxygen and PEEP as tolerated. Hopefully, over the next 24-48 hours, his oxygen requirements will start to slowly improve. We will trend hemoglobin through time to make certain that does not drop either. Lastly, I am going to empirically start some steroids just in case we are dealing with an inflammatory process. His oxygen requirements preclude extubation. Otherwise, supportive measures will be continued. CRITICAL CARE TIME: 30 minutes. PRATIMA
[2017-07-11] MEDS ORDERED: Propofol BOLUS 1,000 MG/100 ML VIAL IV PRN (11:18)
[2017-07-11] MEDS: NIFEdipine 10 MG CAP PER TUBE SCH ×2 (16:35→21:22)
[2017-07-11] MEDS: Propofol 1,000 MG/100 ML VIAL IV PRN (16:36)
[2017-07-11] MEDS: Dextrose 5% in Water 1,000 ML IV SCH (16:36)
[2017-07-12 06:34] LABS: Band 9 % (5-11); Hemoglobin 9.8 g/dL (14.0-18.0); Lymphocytes 6 % (21-51); MDiff Complete? YES; Mean Corpuscular HGB CONC 33.3 g/dL (32.0-36.0); Mean Corpuscular Hemoglobin 29.4 pg (27.0-31.0); Mean Corpuscular Volume 88.2 fl (80.0-94.0); Mean Platelet Volume 9.8 fL (7.4-10.4); Monocytes 6 % (0-10); Neutrophil 79 % (42-75); PLT Morphology Comment Appears Adequate; Platelet Count 128 thou/uL (130-400); RBC Distribution Width 13.6 % (11.5-14.5); Red Blood Cell (RBC) Count 3.34 mill/uL (4.70-6.10); White Blood Cell (WBC) Count 12.2 thou/uL (4.8-10.8)
[2017-07-12 06:44] LABS: Anion Gap 18 mmol/L (10-20); Calc. Creatinine Clearance 12 mL/min (70-130); Calcium 8.6 mg/dL (7.8-10.44); Carbon Dioxide 19 mmol/L (23-31); Chloride 113 mmol/L (98-107); Estimated GFR-MDRD 11; Glucose 195 mg/dL (80-115); Phosphorus 3.4 mg/dL (2.3-4.7); Potassium 4.3 mmol/L (3.5-5.1); Sodium 146 mmol/L (136-145)
[2017-07-12 06:55] LABS: BUN (Urea Nitrogen) 126 mg/dL (8.4-25.7)
--- NOTE | 2017-07-12 09:41 | PRG ---
DATE OF SERVICE: 07/12/2017 SERVICE: Renal Medicine. SUBJECTIVE: Mr. Davies is a 71-year-old black male, who recently was status post CVA and was readmi tted due to gastric distention and severe obstipation. He was noted to be in acute kidney injury and this has worsened over time. I had a long discussion with the about initiating dialysis and sh radha has agreed to proceed with it. My plan is to get a surgical consult, and I will schedule this sterling ent for 1-hour hemodialysis today with incremental increase in the time in the next several days. OBJECTIVE: VITAL SIGNS: Blood pressure is 116/73, heart rate 72, respiratory rate 21, temperature 98.8, pulse o x 98%. GENERAL EXAM: Arousable, intubated, confused on ventilator support. HEENT: He has pinkish conjunctivae. Anicteric sclerae. NECK: No neck mass, no carotid bruits, no JVD. CHEST: No deformities. LUNGS: Decreased breath sounds. No wheezing, no crackles. HEART: Normal sinus rhythm. No murmur, no gallops, no rubs. ABDOMEN: Globular, soft, nontender, no masses. EXTREMITIES: No edema, no deformities. Medications of 07/12/2017 were reviewed. LABORATORY DATA: Laboratories of 07/12/2017, white count 12.2, hemoglobin 9.8. Sodium 146, potassiu m 4.3, chloride 113, carbon dioxide 19, BUN 126, creatinine 6.14, GFR 11 mL per minute, glucose 195. Magnesium is 4.0, phosphorus 3.4, calcium 8.6. 07/10/2017, CT scan of the chest and abdomen shows p erihilar alveolar lung changes compatible with pulmonary edema, sigmoid diverticulosis, moderate amou nt of stool in the rectosigmoid area, enlarged prostate. Trace fluid in the pelvis. ASSESSMENT AND PLAN: 1. Acute kidney injury - most likely a superimposed ischemic acute tubular necrosis. Renal function continues to worsen. My plan is to initiate dialysis with this patient. A surgical consult will be done for placement of dialysis catheter. I plan to do a 1-hour dialysis with about a liter of fluid removal. 2. Congestive heart failure. Hemodialysis with fluid removal. 3. ?Sepsis. Supportive care. 4. Status post cerebrovascular accident. Continue supportive care. Overall prognosis remains guarded.
[2017-07-12] MEDS: Cefepime 1 GM, Admixture Fee 1 EACH in Sterile Water 10 ML SLOW IVP SCH (10:45)
[2017-07-12] MEDS: Pantoprazole 40 MG VIAL IVP SCH (10:45)
[2017-07-12] MEDS: Dextrose 5% in Water 1,000 ML IV SCH (10:46)
[2017-07-12] MEDS: Polyethylene Glycol 3350 17 GM Packet PO SCH (10:46)
[2017-07-12] MEDS: Propofol 1,000 MG/100 ML VIAL IV PRN (12:00)
[2017-07-12] MEDS ORDERED: Vancomycin HCl 1 GM in Premix Bag 1 BAG IVPB SCH (13:15)
[2017-07-12] MEDS ORDERED: Vancomycin HCl 1.25 GM in Sodium Chloride 0.9% 250 ML 250 ML IVPB SCH (13:15)
[2017-07-12] MEDS ORDERED: HOLD VANCOMYCIN FOR LEVEL >20 FS SCH (13:15)
[2017-07-12] MEDS ORDERED: Vancomycin HCl 750 MG in Sodium Chloride 0.9% 250 ML 250 ML IVPB SCH (13:15)
[2017-07-12] MEDS ORDERED: Vancomycin HCl 500 MG in Sodium Chloride 0.9% 100 ML IVPB SCH (13:15)
--- NOTE | 2017-07-12 13:16 | PRG ---
DATE OF SERVICE: 07/12/2017 SERVICE: Pulmonary Medicine. INTERVAL HISTORY: The patient is doing fine from a cardiovascular and respiratory standpoint. He had no events overnight. Oxygen requirements have dramatically improved over the last 24 hours. There have been no specific events that occurred otherwise. He did not have any fevers. PHYSICAL EXAMINATION: VITAL SIGNS: Afebrile, pulse 82, respirations 24, saturation 99% on 40% FiO2 and a PEEP of 11 at that time. HEENT: Normocephalic, atraumatic. Sclerae are white, conjunctivae pink. Oral and nasal mucosa are moist without lesions. LUNGS: Decent air entry. There is no prolonged expiratory phase, wheezing, rhonchi, or crackles present. HEART: Normal rate, regular. ABDOMEN: Soft, nontender, nondistended. Bowel sounds are positive. MUSCULOSKELETAL: No cyanosis or clubbing. There is no pitting in the bilateral lower extremities. NEUROLOGIC: Grossly nonfocal. LABORATORY DATA: WBC 12.2 and down trending, hemoglobin 9.8, platelets 128, 000. Neutrophil count is 79% with 9% bands. INR 1.3. Creatinine 6.14 and gently up trending, BUN 126. Bicarbonate 19 and down trending, sodium 146 and remains elevated. Magnesium 4.0, phosphorus 3.4. Sputum is growing Staphylococcus aureus. ASSESSMENT: 1. Acute hypoxic respiratory failure secondary to suspected flash pulmonary edema. 2. Metabolic encephalopathy. 3. Community acquired pneumonia secondary to aspiration, Staphylococcus aureus currently identified. 4. Acute blood loss anemia. 5. Chronic kidney disease. 6. History of cerebrovascular accident. PLAN: We will continue on free water for the next 24 hours. Vancomycin will be added. Otherwise, supportive measures will be continued moving forward. Multiple studies are currently pending looking into inflammatory disease processes. I am doubtful that these things exist; however. The patient has made a rapid recovery, and this would be consistent with a volume-mediated respiratory failure. Critical care time, 30 minutes. MTDD
[2017-07-12] MEDS ORDERED: Vancomycin HCl 1.5 GM in Sodium Chloride 0.9% 250 ML 300 ML IVPB SCH (13:30)
[2017-07-12] MEDS: Oxybutynin 5 MG TAB PO SCH ×2 (14:40→21:23)
[2017-07-12] MEDS: NIFEdipine 10 MG CAP PER TUBE SCH ×3 (14:40→21:23)
[2017-07-12 16:24] LABS: EliA Vaculitis New Method **** NEW METHOD ****; Glomerular Basemt Membrane Ab Less than 1.9 EliAU/mL (<7 Negative)
--- NOTE | 2017-07-12 19:20 | OP ---
DATE OF PROCEDURE: 07/12/2017 PREOPERATIVE DIAGNOSIS: Acute renal failure. POSTOPERATIVE DIAGNOSIS: Acute renal failure. OPERATION PERFORMED: Placement of right femoral vein Trialysis catheter. SURGEON: Arthur Santos D.O. INDICATIONS FOR PROCEDURE: A 71-year-old -Turk[place] man in acute renal failure. I have been a sked to place a Trialysis catheter for hemodialysis. DESCRIPTION OF PROCEDURE: Informed consent obtained, following which the patient was placed in supin e position. The right groin was sterilely prepped and draped in usual fashion. The skin was anesthe tized with 1% lidocaine. The right femoral artery was palpated and a right femoral vein was cannulat ed medial to the right femoral artery. Dark venous blood was returned following which guidewire was passed through this needle and advanced into the right femoral vein without resistance. The needle w as withdrawn over the guidewire. A stab incision was made adjacent to the guidewire using an 11 scal pel. Dilator was passed over the guidewire dilating subcutaneous tissues. A triple lumen Trialysis catheter was then advanced over the guidewire and placed in the right femoral vein without resistance . The guidewire was removed. Dark venous blood was aspirated from all 3 ports, which were individua lly flushed first with saline followed by heparin. Catheter secured to the right groin using 2-0 nyl on sutures at 2 points. Biopatch and sterile dressings was applied. The patient tolerated the proce dure without any apparent complication and remains hemodynamically stable following completion of the procedure.
[2017-07-13] MEDS: Dextrose 5% in Water 1,000 ML IV SCH (02:26)
[2017-07-13] MEDS: Propofol 1,000 MG/100 ML VIAL IV PRN ×2 (02:27→09:10)
[2017-07-13 05:17] LABS: Anion Gap 17 mmol/L (10-20); BUN (Urea Nitrogen) 117 mg/dL (8.4-25.7); Calc. Creatinine Clearance 15 mL/min (70-130); Calcium 8.5 mg/dL (7.8-10.44); Carbon Dioxide 22 mmol/L (23-31); Chloride 107 mmol/L (98-107); Estimated GFR-MDRD 14; Glucose 159 mg/dL (80-115); Sodium 142 mmol/L (136-145)
[2017-07-13 05:39] LABS: Band 1 % (5-11); Hemoglobin 9.4 g/dL (14.0-18.0); Lymphocytes 6 % (21-51); MDiff Complete? YES; Mean Corpuscular HGB CONC 33.5 g/dL (32.0-36.0); Mean Corpuscular Hemoglobin 29.4 pg (27.0-31.0); Mean Corpuscular Volume 87.5 fl (80.0-94.0); Mean Platelet Volume 9.9 fL (7.4-10.4); Monocytes 8 % (0-10); Neutrophil 85 % (42-75); Platelet Count 135 thou/uL (130-400); RBC Distribution Width 13.5 % (11.5-14.5); White Blood Cell (WBC) Count 13.6 thou/uL (4.8-10.8)
[2017-07-13] MEDS: Cefepime 1 GM, Admixture Fee 1 EACH in Sterile Water 10 ML SLOW IVP SCH (09:08)
[2017-07-13] MEDS: Pantoprazole 40 MG VIAL IVP SCH (09:10)
[2017-07-13] MEDS: Oxybutynin 5 MG TAB PO SCH ×2 (09:11→21:53)
[2017-07-13] MEDS: NIFEdipine 10 MG CAP PER TUBE SCH ×3 (09:11→21:53)
[2017-07-13] MEDS: Polyethylene Glycol 3350 17 GM Packet PO SCH (09:11)
--- NOTE | 2017-07-13 09:52 | PRG ---
DATE OF SERVICE: 07/13/2017 SUBJECTIVE: Mr. Davies is a 71-year-old black male with status post CVA, recently severe obstipatio n and being followed by Renal Service for his acute kidney injury secondary to presumed acute tubular necrosis. Hemodialysis was initiated yesterday. He underwent one hour hemodialysis. The plan is f or him to undergo a 2-hour dialysis yesterday. Of note, his urine output has somewhat picked up to a t least about 30-40 mL an hour. He is still currently intubated. Dr. Santos placed a temporary dialy sis catheter for us. OBJECTIVE: VITAL SIGNS: Blood pressure is noted at 148/88, heart rate 83, respiratory rate 18, pulse ox 94%. GENERAL: Arousable, confused, intubated and ventilator support. SKIN: Adequate turgor. HEENT: He has slightly pale conjunctivae, anicteric sclerae. NECK: No neck mass, no carotid bruits, no JVD. CHEST: No deformities. LUNGS: Harsh breath sounds. HEART: Normal sinus rhythm. No murmurs, no gallops, no rubs. ABDOMEN: Globular, soft, nontender. EXTREMITIES: Trace edema. MEDICATIONS: Medications of 07/13/2017 was reviewed. LABORATORY DATA: Laboratories of 07/13/2017, white count 13.6, hemoglobin 9.4, sodium 142, potassium 4.0, chloride 107, carbon dioxide 22, BUN 117, creatinine 5.1, glucose 115, and calcium 8.5. ASSESSMENT AND PLAN: 1. Acute kidney injury - secondary to presumed ischemic acute tubular necrosis. Continue supportive dialysis. Our plan is to do a 2-hour hemodialysis with this patient. 2. Acute respiratory failure - patient currently intubated and the plan is to wean him off from the vent today. 3. Anemia p.r.n blood transfusion. Continue to observe. 4. Status post cerebrovascular accident - left-sided weakness. Supportive care. Agree with current management.
--- NOTE | 2017-07-13 10:20 | PRG ---
DATE OF SERVICE: 07/13/2017 SERVICE: Pulmonary Medicine. INTERVAL HISTORY: The patient is doing great from a respiratory standpoint. Oxygen requirements con tinued to improve. He is on a PEEP of 5. He has been like that since yesterday and his saturations are doing okay. He denies any chest pain, nausea, vomiting, fever or chills. He is following comman ds. He is moving all 4 extremities. PHYSICAL EXAMINATION: VITAL SIGNS: Afebrile, pulse 83, blood pressure 148/88, respirations 18, saturation 94% on 37% FIO2 and a PEEP of 5. GENERAL: The patient is awake, alert, no apparent distress. LUNGS: Excellent air entry. Dependent crackles are present. No prolonged expiratory phase or wheez ing. HEART: Normal rate, regular. ABDOMEN: Soft, nontender, nondistended. Bowel sounds are positive. MUSCULOSKELETAL: No cyanosis or clubbing. No pitting in the bilateral lower extremities. NEUROLOGIC: Grossly nonfocal. LABORATORY DATA: WBC 13.6 and up trending, hemoglobin 9.4 and roughly stable. Platelets are 135,000 . Band count is actually improving, though the neutrophil count has gone up. Creatinine 5.10, BUN 1 17. Basic metabolic profile is otherwise unremarkable. Calcium 8.5. Anti-GBM is below the assay li [facility]. ANCA studies are currently pending. ASSESSMENT: 1. Acute hypoxic respiratory failure secondary to his flash pulmonary edema. 2. Metabolic encephalopathy. 3. Community-acquired pneumonia secondary to aspiration, Staphylococcus aureus identified. 4. Acute blood loss anemia. 5. Chronic kidney disease. 6. History of cerebrovascular accident. DISCUSSION AND PLAN: We will continue vancomycin. Cefepime will be discontinued in 24 hours as that will complete a 7-day course. I will put him on a spontaneous breathing trial. If he meets criteri a, extubation will be considered within 30-45 minutes. Pulmonary and Critical Care will continue to follow along. CRITICAL CARE TIME: 30 minutes.
[2017-07-13] MEDS: hydrALAZINE 20 MG/ML VIAL SLOW IVP PRN ×2 (11:11→15:47)
[2017-07-13] MEDS: Labetalol HCl 100 MG/20 ML VIAL SLOW IVP PRN (22:21)
[2017-07-14] MEDS: Labetalol HCl 100 MG/20 ML VIAL SLOW IVP PRN (06:03)
[2017-07-14] MEDS: hydrALAZINE 20 MG/ML VIAL SLOW IVP PRN ×4 (09:26→21:29)
[2017-07-14] MEDS: Oxybutynin 5 MG TAB PO SCH ×2 (09:34→21:20)
[2017-07-14] MEDS: Polyethylene Glycol 3350 17 GM Packet PO SCH (09:34)
[2017-07-14] MEDS: NIFEdipine 10 MG CAP PER TUBE SCH ×3 (09:34→21:20)
--- NOTE | 2017-07-14 10:04 | PRG ---
DATE OF SERVICE: 07/14/2017 SERVICE: Pulmonary Medicine. INTERVAL HISTORY: The patient is doing fine from a respiratory standpoint. He is breathing comforta amira. He has no chest discomfort, nausea, vomiting or shortness of breath. He had a very good evenin g. He is on dialysis currently. He was extubated successfully yesterday and has been weaned down to room air. His blood pressures are high once again. PHYSICAL EXAMINATION: VITAL SIGNS: Afebrile, pulse 64, blood pressure 188/92, respirations 20, saturation 100% on room air . GENERAL: The patient is awake and alert, in no apparent distress. LUNGS: Excellent air entry. There is no prolonged expiratory phase or wheezing present. HEART: Normal rate, regular. ABDOMEN: Soft, nontender, nondistended. Bowel sounds are positive. MUSCULOSKELETAL: No cyanosis or clubbing. No pitting in the bilateral lower extremities. NEUROLOGIC: Grossly nonfocal. ASSESSMENT: 1. Acute hypoxic respiratory failure secondary to flash pulmonary edema, resolved. 2. Metabolic encephalopathy. 3. Community acquired pneumonia secondary to aspiration, methicillin-resistant Staphylococcus aureus identified. 4. Acute blood loss anemia. 5. Chronic kidney disease. 6. History of cerebrovascular accident. 7. Hypertension. PLAN: We will continue our vancomycin for a total duration of 5 days. I will add his home blood pre ssure medications back today. We will get him into a chair and work with physical therapy and occupa tional therapy while he is here. I would like him to stay in the ICU until his blood pressures are m anageable without frequent dosing of p.r.n. blood pressure medications.
[2017-07-14] MEDS ORDERED: Heparin 1,000 UNITS/ML VIAL ONE (11:11)
[2017-07-14 12:24] LABS: Vancomycin, Random 4.5 ug/mL (See Comment)
[2017-07-14] MEDS: Cefepime 1 GM, Admixture Fee 1 EACH in Sterile Water 10 ML SLOW IVP SCH (13:12)
[2017-07-14] MEDS: hydrALAZINE 25 MG TAB PO SCH ×2 (15:42→21:19)
[2017-07-14 16:15] LABS: Cytoplasmic (C-ANCA) <1:20 titer (Neg:<1:20); Myeloperoxidase AutoAbs <9.0 U/mL (0.0-9.0); Perinuclear (P-ANCA) <1:20 titer (Neg:<1:20); Proteinase-3 AutoAbs Less than 3.5 U/mL (0.0-3.5)
[2017-07-14] MEDS: Labetalol 100 MG TAB PO SCH (21:19)
[2017-07-15 04:36] LABS: Band 4 % (5-11); Eosinophils 2 % (0-10); Hemoglobin 10.3 g/dL (14.0-18.0); Lymphocytes 7 % (21-51); MDiff Complete? YES; Mean Corpuscular HGB CONC 34.4 g/dL (32.0-36.0); Mean Corpuscular Hemoglobin 30.2 pg (27.0-31.0); Mean Corpuscular Volume 87.9 fl (80.0-94.0); Monocytes 8 % (0-10); Neutrophil 79 % (42-75); Platelet Count 147 thou/uL (130-400); RBC Distribution Width 13.2 % (11.5-14.5); Red Blood Cell (RBC) Count 3.41 mill/uL (4.70-6.10); White Blood Cell (WBC) Count 8.2 thou/uL (4.8-10.8)
[2017-07-15 04:54] LABS: Anion Gap 12 mmol/L (10-20); BUN (Urea Nitrogen) 49 mg/dL (8.4-25.7); Calc. Creatinine Clearance 24 mL/min (70-130); Calcium 8.5 mg/dL (7.8-10.44); Carbon Dioxide 29 mmol/L (23-31); Chloride 104 mmol/L (98-107); Estimated GFR-MDRD 24; Glucose 86 mg/dL (80-115); Potassium 3.6 mmol/L (3.5-5.1); Sodium 141 mmol/L (136-145)
[2017-07-15 05:15] LABS: Creatinine, Urine 60.96 mg/dL (63-166)
[2017-07-15 05:55] LABS: Albumin 3.6 g/dL (3.4-4.8); BUN/Creatinine Ratio 15.58; Phosphorus 3.6 mg/dL (2.3-4.7)
[2017-07-15] MEDS: hydrALAZINE 25 MG TAB PO SCH ×3 (08:45→19:30)
[2017-07-15] MEDS: Oxybutynin 5 MG TAB PO SCH ×2 (08:46→19:31)
[2017-07-15] MEDS: NIFEdipine 10 MG CAP PER TUBE SCH ×3 (08:46→19:31)
[2017-07-15] MEDS: Labetalol 100 MG TAB PO SCH ×2 (08:46→19:30)
[2017-07-15] MEDS: Polyethylene Glycol 3350 17 GM Packet PO SCH (08:47)
[2017-07-15] MEDS: hydrALAZINE 20 MG/ML VIAL SLOW IVP PRN ×3 (12:29→21:37)
[2017-07-15 13:47] LABS: Vancomycin, Random 18.5 ug/mL (See Comment)
--- NOTE | 2017-07-15 20:31 | PRG ---
DATE OF SERVICE: 07/15/2017 SUBJECTIVE: No new problems reported. OBJECTIVE: VITAL SIGNS: Blood pressure 172/112 , heart rate 82, respiratory rate 18, sats are in the 90s on nikki m air. LUNGS: Clear. HEART: Regular rhythm. ABDOMEN: Soft. EXTREMITIES: Without clubbing, cyanosis, or edema. LABORATORY DATA: White counts 8.2, hemoglobin 10.3, platelets 147. Sodium 141, potassium 3.6, chlor alley 104, bicarbonate 29, BUN 49, creatinine 3.12. Creatinine yesterday was 5.1. Intake and outputs negative 452 mL. IMPRESSION: 1. Acute hypoxic respiratory failure secondary to pulmonary edema. 2. Metabolic encephalopathy. 3. Aspiration pneumonia. 4. Methicillin-resistant Staphylococcus aureus isolated in sputum. 5. Blood loss anemia. 6. Chronic kidney disease. 7. History of cerebrovascular accident. 8. Hypertension. PLAN: Continue antimicrobial therapy. He is clear to go to the stroke unit. Blood pressure appears to be better controlled.
[2017-07-16] MEDS: hydrALAZINE 20 MG/ML VIAL SLOW IVP PRN ×2 (01:35→06:22)
[2017-07-16 06:13] LABS: Anion Gap 12 mmol/L (10-20); BUN (Urea Nitrogen) 28 mg/dL (8.4-25.7); Calc. Creatinine Clearance 28 mL/min (70-130); Calcium 8.5 mg/dL (7.8-10.44); Carbon Dioxide 25 mmol/L (23-31); Chloride 104 mmol/L (98-107); Estimated GFR-MDRD 30; Glucose 81 mg/dL (80-115); Potassium 3.6 mmol/L (3.5-5.1)
[2017-07-16 06:31] LABS: Sodium 137 mmol/L (136-145)
[2017-07-16 06:36] LABS: Band 4 % (5-11); Eosinophils 3 % (0-10); Hemoglobin 10.6 g/dL (14.0-18.0); Lymphocytes 8 % (21-51); MDiff Complete? YES; Mean Corpuscular HGB CONC 33.6 g/dL (32.0-36.0); Mean Corpuscular Hemoglobin 29.7 pg (27.0-31.0); Mean Corpuscular Volume 88.5 fl (80.0-94.0); Metamyelocyte 1 % (0-0); Monocytes 13 % (0-10); Myelocyte 2 % (0-0); Neutrophil 69 % (42-75); Platelet Count 167 thou/uL (130-400); RBC Distribution Width 13.5 % (11.5-14.5); Red Blood Cell (RBC) Count 3.58 mill/uL (4.70-6.10); White Blood Cell (WBC) Count 7.9 thou/uL (4.8-10.8)
[2017-07-16] MEDS: NIFEdipine 10 MG CAP PER TUBE SCH ×3 (08:36→22:21)
[2017-07-16] MEDS: Labetalol 100 MG TAB PO SCH ×2 (08:36→21:06)
[2017-07-16] MEDS: hydrALAZINE 25 MG TAB PO SCH ×3 (08:36→21:06)
[2017-07-16] MEDS: Oxybutynin 5 MG TAB PO SCH ×2 (08:37→21:07)
[2017-07-16] MEDS: Polyethylene Glycol 3350 17 GM Packet PO SCH (08:37)
--- NOTE | 2017-07-16 13:02 | PRG ---
DATE OF SERVICE: 07/16/2017 OBJECTIVE: VITAL SIGNS: Mr. Davies is afebrile, heart rate is 80, respiratory rate is 16, oximetry is 93 on ro om air, blood pressure 179/85. LUNGS: Clear. HEART: Regular rhythm. ABDOMEN: Soft. LABORATORY DATA: White count 7.9, hemoglobin 10.6, platelets 167. Sodium 137, potassium 3.6, chlori de 104, bicarbonate 25, BUN 28, creatinine 2.57. IMPRESSION: 1. Acute hypoxic respiratory failure secondary to pulmonary edema. 2. Metabolic encephalopathy. 3. Aspiration pneumonia. 4. Methicillin-resistant Staph isolated in the sputum. 5. Blood loss anemia. 6. Chronic kidney disease, improving on a daily basis. 7. History of cerebrovascular accident. 8. History of hypertension. PLAN: Continue with care on the stroke unit. Medications have been reviewed. His steroids will be switched to p.o. prednisone and continue the vancomycin for now.
[2017-07-16] MEDS ORDERED: cloNIDine 0.3mg/24 Hour PATCH TD SCH (15:00)
[2017-07-17] MEDS: hydrALAZINE 20 MG/ML VIAL SLOW IVP PRN ×4 (03:19→12:17)
[2017-07-17 05:31] LABS: #Eosinphils 0.2 thou/uL (0.0-0.7); #Lymphocytes 0.9 thou/uL (1.20-3.40); #Monocytes 0.9 thou/uL (0.11-0.59); #Neutrophils 7.1 thou/uL (1.40-6.50); %Basophils 0.1 % (0.0-1.0); %Eosinophils 1.8 % (0.0-10.0); %Lymphocytes 9.7 % (21.0-51.0); %Monocytes 9.6 % (0.0-10.0); %Neutrophils 78.8 % (42.0-75.0); Hemoglobin 10.4 g/dL (14.0-18.0); Mean Corpuscular HGB CONC 33.6 g/dL (32.0-36.0); Mean Corpuscular Hemoglobin 29.7 pg (27.0-31.0); Mean Corpuscular Volume 88.4 fl (80.0-94.0); Platelet Count 195 thou/uL (130-400); RBC Distribution Width 13.5 % (11.5-14.5); Red Blood Cell (RBC) Count 3.49 mill/uL (4.70-6.10)
[2017-07-17 06:08] LABS: Albumin 3.8 g/dL (3.4-4.8); Anion Gap 16 mmol/L (10-20); BUN (Urea Nitrogen) 51 mg/dL (8.4-25.7); BUN/Creatinine Ratio 10.28; Calc. Creatinine Clearance 14 mL/min (70-130); Calcium 8.4 mg/dL (7.8-10.44); Carbon Dioxide 24 mmol/L (23-31); Chloride 103 mmol/L (98-107); Estimated GFR-MDRD 14; Glucose 100 mg/dL (80-115); Phosphorus 5.8 mg/dL (2.3-4.7); Potassium 3.8 mmol/L (3.5-5.1); Sodium 139 mmol/L (136-145)
[2017-07-17] MEDS: Oxybutynin 5 MG TAB PO SCH ×2 (08:18→22:48)
[2017-07-17] MEDS: NIFEdipine 10 MG CAP PER TUBE SCH ×2 (08:18→16:49)
[2017-07-17] MEDS: predniSONE 20 MG TAB PO SCH (08:18)
[2017-07-17] MEDS: Polyethylene Glycol 3350 17 GM Packet PO SCH (08:18)
[2017-07-17] MEDS: hydrALAZINE 25 MG TAB PO SCH ×3 (08:18→22:46)
[2017-07-17] MEDS: Labetalol 100 MG TAB PO SCH ×2 (08:18→22:47)
--- NOTE | 2017-07-17 09:13 | PRG ---
DATE OF SERVICE: 07/17/2017 RENAL MEDICINE SUBJECTIVE: Mr. Davies is a 71-year-old black male who is status post CVA, and seen by the Renal Se samantha for his acute kidney injury. He was initiated on dialysis. His urine output is improving and were placed on hold on the dialysis currently. His IV steroids hav e been changed to p.o. prednisone. He continues to be on IV vancomycin. He voices no new complaints today. No acute events noted last night. PHYSICAL EXAMINATION: VITAL SIGNS: Blood pressure is 194/99 - before BP meds, heart rate 76, respiratory rate 16, pulse ox 95%, temperature 97. GENERAL: Awake, somewhat dysarthric, not in distress. SKIN: Adequate turgor. HEENT: He has pinkish conjunctivae, anicteric sclerae. NECK: No neck mass, no carotid bruits, no JVD. CHEST: No deformities. LUNGS: Decreased breath sounds. HEART: Normal sinus rhythm. No murmurs, no gallops, no rubs. ABDOMEN: Globular, soft, nontender. EXTREMITIES: No edema. He has left-sided weakness. MEDICATIONS: Medications of 07/17/2017 was reviewed. LABORATORY DATA: Laboratories of 07/17/2017; white count 9, hemoglobin 10.4, hematocrit 30.9. Sodiu m 139, potassium 3.8, chloride 103, carbon dioxide 24, BUN 51, creatinine 4.96, GFR 14 mL per minute, glucose 100. Last 24-hour urine was noted at 325 mL per minute. Previous to this, urine output was noted at 700 mL per minute. ASSESSMENT AND PLAN: 1. Acute kidney injury secondary to presumed acute tubular necrosis. Continue to observe without th e dialysis. Reevaluate daily with renal function. There is no indication for an emergent hemodialys is today. We will check base met and CBC in a.m. 2. Status post cerebrovascular accident secondary to bleed, supportive care. Overall, agree with current management.
[2017-07-17 12:36] LABS: Vancomycin, Random 15.5 ug/mL (See Comment)
--- NOTE | 2017-07-17 15:04 | RAD ---
MODIFIED BARIUM SWALLOW: Date: 07/17/17 The patient was given difference consistencies of barium under fluoroscopic observation to assess swa llowing mechanism. INDICATION: Dysphagia. Feeding difficulties. EXPOSURE: 1.5 minutes fluoro. 0.803 Gy*cm^2. FINDINGS/IMPRESSION: Moderate swallowing dysfunction. There is pooling in the piriform sinuses. Aspiration was detected wi th thin liquids. Patient tolerated other consistencies without further aspiration. See speech pathology recommendation. POS: JIMMY
--- NOTE | 2017-07-17 15:12 | PRG ---
DATE OF SERVICE: 07/17/2017 SERVICE: Pulmonary Medicine. INTERVAL HISTORY: The patient is doing fine from a respiratory standpoint. He has been weaned down to room air. Denies any chest pain, nausea or vomiting. He is breathing comfortably. Otherwise, there has been no interval change to his condition. PHYSICAL EXAMINATION: VITAL SIGNS: Afebrile, pulse 84, blood pressure 175/96, respirations 16, saturation 94% on room air. GENERAL: Patient is awake, alert, no apparent distress. LUNGS: Decent air entry. I do not appreciate crackles or wheezing. HEART: Normal rate and regular. ABDOMEN: Soft, nontender, and nondistended. Bowel sounds are positive. MUSCULOSKELETAL: No cyanosis or clubbing. No pitting in the bilateral lower extremities. NEUROLOGIC: Grossly nonfocal. LABORATORY DATA: WBC 9.0, hemoglobin 10.4, and platelets 195,000. Basic metabolic profile is essentially unremarkable/stable. ASSESSMENT: 1. Acute hypoxic respiratory failure, secondary to flash pulmonary edema, resolved. 2. Metabolic encephalopathy, resolved. 3. Health care associated pneumonia secondary to aspiration with MRSA growing in the sputum. 4. Acute blood loss anemia, stable. 5. Chronic kidney disease. 6. History of cerebrovascular accident. 7. Hypertension. DISCUSSION AND PLAN: At this point, the patient once again has no further requirements for inpatient Pulmonary or Critical Care opinion. As such, I will sign off. Vancomycin can be interrupted after a total duration of 7 days. He will need a repeat chest x-ray in 4 weeks in the outpatient setting to verify the infiltrate has resolved. If long-term dialysis is going to be entertained, he will likely need a different line. Please call with additional questions or concerns moving forward. PRATIMA
[2017-07-17] MEDS ORDERED: NIFEdipine 10 MG CAP PER TUBE SCH (21:00)
[2017-07-17] MEDS ORDERED: NIFEdipine 10 MG CAP PO SCH (22:30)
[2017-07-18 05:59] LABS: #Eosinphils 0.2 thou/uL (0.0-0.7); #Lymphocytes 0.8 thou/uL (1.20-3.40); #Monocytes 0.8 thou/uL (0.11-0.59); #Neutrophils 7.7 thou/uL (1.40-6.50); %Eosinophils 1.9 % (0.0-10.0); %Lymphocytes 8.6 % (21.0-51.0); %Monocytes 8.5 % (0.0-10.0); Hemoglobin 10.6 g/dL (14.0-18.0); Mean Corpuscular HGB CONC 32.8 g/dL (32.0-36.0); Mean Corpuscular Hemoglobin 28.8 pg (27.0-31.0); Mean Corpuscular Volume 87.9 fl (80.0-94.0); Mean Platelet Volume 8.2 fL (7.4-10.4); Platelet Count 209 thou/uL (130-400); RBC Distribution Width 13.6 % (11.5-14.5); Red Blood Cell (RBC) Count 3.69 mill/uL (4.70-6.10); White Blood Cell (WBC) Count 9.5 thou/uL (4.8-10.8)
[2017-07-18 06:21] LABS: Anion Gap 18 mmol/L (10-20); BUN (Urea Nitrogen) 63 mg/dL (8.4-25.7); Calc. Creatinine Clearance 11 mL/min (70-130); Calcium 8.4 mg/dL (7.8-10.44); Carbon Dioxide 24 mmol/L (23-31); Chloride 102 mmol/L (98-107); Estimated GFR-MDRD 10; Glucose 99 mg/dL (80-115); Potassium 4.1 mmol/L (3.5-5.1); Sodium 140 mmol/L (136-145)
[2017-07-18] MEDS: hydrALAZINE 20 MG/ML VIAL SLOW IVP PRN (06:42)
[2017-07-18] MEDS: Polyethylene Glycol 3350 17 GM Packet PO SCH (08:31)
[2017-07-18] MEDS: Oxybutynin 5 MG TAB PO SCH ×2 (08:31→22:18)
[2017-07-18] MEDS: predniSONE 20 MG TAB PO SCH (08:31)
[2017-07-18] MEDS: NIFEdipine 10 MG CAP PO SCH ×2 (08:31→15:44)
[2017-07-18] MEDS: hydrALAZINE 25 MG TAB PO SCH ×3 (08:31→22:20)
[2017-07-18] MEDS: Labetalol 100 MG TAB PO SCH ×2 (08:31→22:20)
[2017-07-18 08:45] LABS: Vancomycin, Random 14.4 ug/mL (See Comment)
[2017-07-18] MEDS ORDERED: Minoxidil 10 MG TAB PO SCH (09:00)
--- NOTE | 2017-07-18 10:04 | PRG ---
DATE OF SERVICE: 07/18/2017 SUBJECTIVE: Mr. Davies is a 71-year-old black male with status post cerebrovascular accident second kendy to bleed, severe obstipation, and being followed by the Renal Service for his acute kidney injury . I have been reviewed his lab work and there is no evidence of renal recovery. Our plan is to cont inue current maintenance hemodialysis. The patient will be scheduled for dialysis today. No other c omplaints. The patient's appetite is much improved. OBJECTIVE: VITAL SIGNS: Blood pressure is 167/88, heart rate 82, respiratory rate 16, temperature 98.1, pulse o x 99%. GENERAL: Noted to be awake, alert, comfortable, somewhat dysarthric, but following commands. SKIN: Adequate turgor. HEENT: He has pinkish conjunctivae, anicteric sclerae. NECK: No neck mass, no carotid bruits, no JVD. CHEST: No deformities. LUNGS: Clear breath sounds. No wheezing, no crackles. HEART: Normal sinus rhythm. No murmur, no gallops, no rubs. ABDOMEN: Globular, soft, nontender, no masses. EXTREMITIES: No edema. MEDICATIONS: Of 07/18/2017, was reviewed. LABORATORY: Of 07/18/2017, white count 9.5, hemoglobin 10.6. Sodium 140, potassium 4.1, chloride 10 2, carbon dioxide 24, BUN 63, creatinine 6.82, glucose is 99, calcium is 8.4. ASSESSMENT AND PLAN: 1. Acute kidney injury secondary to a presumed acute tubular necrosis - no evidence of renal recover y. We will continue current hemodialysis regimen. I will place this patient 3 times a week hemodial ysis. Fluid removal only as tolerated. My plan is to do a 4-hour hemodialysis today and on Monday, , and Monday regimen. 2. Status post cerebrovascular accident. Continue supportive care. 3. Hypertension - continue current blood pressure medications, stable. Adjust blood pressure meds a s needed.
--- NOTE | 2017-07-18 11:25 | PQF ---
CLINICAL DOCUMENTATION IMPROVEMENT CLARIFICATION FORM: ICD-10 Updated PLEASE DO AN ADDENDUM TO THE PROGRESS NOTE WITH ANY DOCUMENTATION UPDATES OR ADDITIONS AND CARRY THROUGH TO DC SUMMARY. THANK YOU. DATE: 07/18/17 ATTN: Dr. Beck Please exercise your independent, professional judgment in responding to the clarification form. Clinical indicators are provided on the bottom of this form for your review Please check appropriate box(s): [ ] Hypovolemic Shock [ ] Cardiogenic Shock [ ] Septic Shock [ ] Shock Unspecified [ ] Other diagnosis [ y ] Unable to determine In addition, please specify: Present on Admission (POA): [ ] Yes [ y] No [ ] Unable to determine For continuity of documentation, please document condition throughout progress notes and discharge summary. Thank You. CLINICAL INDICATORS - SIGNS / SYMPTOMS / LABS PULMONARY CONSULT 07/08: POST PROCEDURE HE REMAINED HYPOTENSIVE. HE THEN PROCEEDED TO APPARENTLY HAVE A RESPIRATORY ARREST WITHOUT LOSS OF ANY PULSE. IM PN 07/08: BUN/ CR 81/ 4.2 NURSES NOTE 07/08/17 @ 1158: R RADIAL A-LINE IN PLACE & SBP'S 60'S 1345: R SUBCLAVIAN LINE & PCXR COMPLETED. LEVOPHED DRIP STARTED GI PN 07/10: HYPOTENSION, ASPIRATION, & SEPSIS. HE DOES HAVE BILATERAL PNEUMONIA. WORSENING KIDNEY FUNCTION, MOST LIKELY BECAUSE OF HYPOTENSION & POSSIBLE SEPSIS. RISK FACTORS: OP REPORT: 07/08 EGD. ABOUT 1650 ML OF FLUID ASPIRATED DURING THE PROCEDURE. THE STOMACH IS MARKEDLY DILATED. PULM. CONSULT: PT WAS RECENTLY DISCHARGED FROM THE HOSPITAL & READMITTED ON 07/06/17 WITH DIAGNOSIS OF ABDOMINAL DISTENTION, ETIOLOGY UNCLEAR. TREATMENTS: ORDER 07/08: LEVOPHED 250ML IV TO KEEP SBP >90. DC'D 07/10 ORDER 07/08: RESP: VENT CONTINUOUS. EXTUBATED 07/13 Thank you, Lorraine (This form is maintained as a part of the permanent medical record) 2015 [employer]. All Rights Reserved Lorraine Jackson RN, BSN [email or web address] Office: [phone] [facility]
[2017-07-18] MEDS ORDERED: Heparin 10,000 UNITS/ 10 ML VIAL ONE (16:06)
[2017-07-18] MEDS ORDERED: NIFEdipine 10 MG CAP PO SCH (21:00)
[2017-07-19 04:47] LABS: #Eosinphils 0.1 thou/uL (0.0-0.7); #Lymphocytes 0.7 thou/uL (1.20-3.40); #Monocytes 0.9 thou/uL (0.11-0.59); #Neutrophils 7.9 thou/uL (1.40-6.50); %Basophils 0.1 % (0.0-1.0); %Eosinophils 0.8 % (0.0-10.0); %Lymphocytes 7.1 % (21.0-51.0); %Monocytes 9.6 % (0.0-10.0); %Neutrophils 82.5 % (42.0-75.0); Hemoglobin 10.9 g/dL (14.0-18.0); Mean Corpuscular Hemoglobin 29.2 pg (27.0-31.0); Mean Corpuscular Volume 88.3 fl (80.0-94.0); Mean Platelet Volume 7.7 fL (7.4-10.4); Platelet Count 188 thou/uL (130-400); RBC Distribution Width 13.6 % (11.5-14.5); Red Blood Cell (RBC) Count 3.74 mill/uL (4.70-6.10); White Blood Cell (WBC) Count 9.6 thou/uL (4.8-10.8)
[2017-07-19 05:10] LABS: Anion Gap 16 mmol/L (10-20); BUN (Urea Nitrogen) 34 mg/dL (8.4-25.7); Calc. Creatinine Clearance 14 mL/min (70-130); Calcium 8.5 mg/dL (7.8-10.44); Carbon Dioxide 24 mmol/L (23-31); Chloride 105 mmol/L (98-107); Estimated GFR-MDRD 13; Glucose 122 mg/dL (80-115); Potassium 4.2 mmol/L (3.5-5.1); Sodium 141 mmol/L (136-145)
[2017-07-19] MEDS: Minoxidil 10 MG TAB PO SCH (08:57)
[2017-07-19] MEDS: Labetalol 100 MG TAB PO SCH ×2 (08:57→21:50)
[2017-07-19] MEDS: Polyethylene Glycol 3350 17 GM Packet PO SCH (08:57)
[2017-07-19] MEDS: predniSONE 20 MG TAB PO SCH (08:57)
[2017-07-19] MEDS: hydrALAZINE 25 MG TAB PO SCH ×2 (08:57→21:50)
[2017-07-19] MEDS: Oxybutynin 5 MG TAB PO SCH ×2 (08:57→21:41)
--- NOTE | 2017-07-19 10:43 | CON ---
DATE OF CONSULTATION: 07/19/2017 HISTORY OF PRESENT ILLNESS: Brad Davies is a 71-year-old black male who has worked for [employer], galicia s not previously smoked or drank alcohol. He has suffered with hypertension and chronic kidney disea se. He had a stroke leaving him with left hemiparesis about 12 years ago, but he was able to ambulat e. He presented and has been in the hospital for about 3 weeks after suffering a recurrent stroke. He has progressive kidney disease and required placement of a temporary dialysis catheter, right groi n. Since being in the hospital, he has had IV access, blood draws culminating in thrombosis of his r ight cephalic vein forearm, thrombosis of his basilic vein right distal arm elbow area and thrombosis of his left cephalic vein. The patient has a right subclavian vein triple lumen catheter. I am uns ure who placed this. Dr. Flynn has performed an upper endoscopy noting the hiatal hernia, dilate d stomach. No evidence of pyloric stenosis or duodenal outflow, probably suffering a gastroparesis o r ileus. Dr. Mello has asked me to place a hemodialysis catheter. I have obtained a consent from his . Ultrasound vein mapping results as noted above. Clinical exam reveals that he has excellent s ized cephalic vein at the wrist, but unfortunately is thrombosed from iatrogenic hospital IV access. The plan at this time is placement of a hemodialysis catheter IJ and placement of a right arm primar y fistula, most likely prosthetic graft. I have discussed this with the patient's who consents. ALLERGIES: None. TOBACCO: None. ALCOHOL: None. MEDICATIONS: As an outpatient; hydralazine 100 mg q.i.d., oxybutynin 5 mg b.i.d., nifedipine 30 mg q .i.d., minoxidil 10 daily, atenolol 100 b.i.d. PAST SURGICAL HISTORY: Noncontributory. PAST MEDICAL HISTORY: Chronic kidney disease, previous stroke with left hemiparesis, now recurrent s troke this hospitalization, treated for his new stroke, hypoxic respiratory failure, metabolic enceph alopathy and recent stroke. PHYSICAL EXAMINATION: GENERAL: The patient is able to state his name, but is not a reliable historian. I have gained hist ory from the patient's , although the patient was able to tell me that he worked for [employer] in the past. VITAL SIGNS: Height 5 foot 8 inches, 161 pounds, 24 BMI. Temperature 98.8, 85, 20, 119/61. LUNGS: Clear to auscultation. CARDIAC: Regular rate and rhythm. ABDOMEN: Soft, nontender. EXTREMITIES: Unremarkable. Left hemiparesis, right arm cephalic vein thrombosed wrist to elbow. Ec chymosis and dressings left antecubital area indicative of recent blood draws, left hemiparesis. LABORATORY: White count 9.6, hemoglobin 10.9, sodium 141, potassium 4.2. ASSESSMENT AND PLAN: 1. End-stage renal disease. Plan placement of a hemodialysis catheter and placement of a right arm primary fistula, most likely prosthetic graft due to iatrogenic phlebotomy and IVs. There are punct ure santana in the right cephalic vein wrist indicative of past IVs. A right subclavian vein present i n a dialysis which is a contraindication due to scarring that can occur in the subclavian vein, causi ng stenosis and outflow stenosis, venous drainage in an arm that should be used for dialysis. Avoid central venous access, PICC lines in the future in this patient due to his chronic kidney disease and end-stage renal disease status. 2. Stroke with left hemiparesis. 3. Anemia with history of colonoscopies in the last few years that have been unremarkable. Recent E GD by Dr. Flynn.
--- NOTE | 2017-07-19 11:32 | ULT ---
BILATERAL UPPER EXTREMITY VENOUS DUPLEX STUDY: Color Doppler with spectral analysis and vein measurements are performed on the basilic and cephalic veins of both upper extremities. INDICATION: End-stage renal disease. Venous mapping for possible access for dialysis fistula placement. FINDINGS: Right cephalic vein: Axilla: 3.0 Proximal humerus: 1.2 Mid humerus: 1.2 Elbow: thrombosed. Mid forearm: thrombosed. Right basilic vein: The proximal basilic vein at the axilla and proximal humerus not imaged. There is evidence of thrombus in the right basilic vein at the mid and distal humerus region. Basilic vein at the elbow does show flow measured at 0.9 mm. Right brachial artery: 3.8. Right radial artery: 3.5. Right ulnar artery: 2.5. Left cephalic vein: Proximal humerus: 0.9. Mid humerus: 1.1. Distal humerus: 2.0. Elbow: Thrombosed. Mid forearm: 1.1 Left basilic vein: Axilla: 2.3 Proximal humerus: 1.9. Mid humerus: 1.8. Distal humerus: 1.4. Elbow not identified. Left brachial artery: 4.0. Left radial artery: 3.5. Left ulnar artery: 2.7. POS: [facility]
[2017-07-19] MEDS ORDERED: Fentanyl 100 MCG/2 ML VIAL ONE (15:13)
[2017-07-19] MEDS ORDERED: Sodium Chloride 0.9% 20 ML ONE (15:17)
[2017-07-19] MEDS ORDERED: Heparin 5,000 UNITS/ML VIAL ONE (15:17)
[2017-07-19] MEDS ORDERED: Bupivacaine HCl 0.5%/Epinephrine 1:200,000/PF 30 ml Vial ONE (15:17)
[2017-07-19] MEDS ORDERED: Heparin 10,000 UNITS/1 ML VIAL ONE (15:17)
[2017-07-19] MEDS ORDERED: Protamine Sulfate 50 MG/5 ML VIAL ONE (15:17)
[2017-07-19] MEDS ORDERED: Lidocaine 2% 10 ML INJ ONE (15:17)
[2017-07-19] MEDS ORDERED: PHENYLEPHRINE-NS 100 MCG/ML 10 ML SYRINGE ONE (15:21)
[2017-07-19] MEDS ORDERED: Lidocaine 2% Jelly 5 ML TUBE ONE (15:25)
[2017-07-19] MEDS ORDERED: Ketamine 50 MG/ML (10ML VIAL) ONE (16:12)
[2017-07-19] MEDS ORDERED: Midazolam HCl 2 mg/2 ml Vial ONE (16:12)
[2017-07-19] MEDS ORDERED: Promethazine HCl 25 MG/ML VIAL IM PRN (16:28)
[2017-07-19] MEDS ORDERED: Ondansetron HCl/PF 4 MG/2 ML Vial IVP PRN (16:28)
[2017-07-19] MEDS ORDERED: Promethazine HCl 25 MG/ML VIAL SLOW IVP PRN (16:28)
--- NOTE | 2017-07-19 17:27 | RAD ---
CHEST ONE VIEW: 07/19/17 HISTORY: Central line placement. COMPARISON: Chest radiograph 07/10/17. FINDINGS: Interval placement of dialysis catheter. No large pneumothorax. Patient's hand is overlying the chest . Heart size is mildly prominent. Mild volume overload. IMPRESSION: Uncomplicated placement of dialysis catheter. POS: [facility]
--- NOTE | 2017-07-19 20:05 | OP ---
DATE OF PROCEDURE: 07/19/2017 PREOPERATIVE DIAGNOSIS: End-stage renal disease. POSTOPERATIVE DIAGNOSIS: End-stage renal disease. PROCEDURE: Right IJ cuffed tunnel dialysis catheter. SURGEON: Dr. Krishna Campbell. ANESTHESIA: TIVA. Local 0.5% Marcaine with epinephrine 30 mL mixed with 2% Xylocaine 10 mL. Fluoro scopy and ultrasound used. PROCEDURE: The patient was taken to the operating room under heavy sedation, neck and chest prepared with chloraprep, draped in routine fashion. Local anesthetic infiltrated into the skin and subcutan eous tissue about the operative site. Right internal jugular vein cannulated with trocar catheter. J-wire threaded. Trocar catheter removed. Skin incised and enlarged sharply. Stab incision made ov er the right chest and using the tunneling device, the precurved angiodynamics cuffed tunnel hemodial ysis catheter tunneled between the two incisions, placing the fabric cuff beneath the skin exit site on the chest and catheter secured with 2 interrupted sutures of 3-0 nylon. Biopatch sterile dressing s applied. Smaller medium sized dilators placed over the J-wire into the internal jugular vein remov ed. Dilator and pull-away sheath placed over the J-wire in superior vena cava and J wire and dilator removed. Catheter placed through pull-away sheath. Pull-away sheath removed. Platysma approximate d with 4-0 Monocryl, skin with subdermal 4-0 Monocryl, DermaGlue and Sterile dressings applied. Each port aspirated blood and flushed with heparinized saline solution 1000 units heparin per mL indicate d volume of the port. Final fluoroscopic images revealed good line placement.
[2017-07-20] MEDS ORDERED: Heparin 1,000 UNITS/ML VIAL ONE (11:11)
--- NOTE | 2017-07-20 12:04 | PRG ---
DATE OF SERVICE: 07/20/2017 RENAL MEDICINE SUBJECTIVE: Mr. Davies is a 71-year-old black male with history of acute kidney injury secondary to presumed ischemic acute tubular necrosis. He is on maintenance hemodialysis. He has no evidence of renal recovery at the present time. I have asked the surgeon to place a cuffed dialysis catheter, w hich was done. He is now currently at the dialysis unit undergoing dialysis. I am at the bedside abbasi pervising his dialysis. Please note he has recent status post CVA secondary to bleed. PHYSICAL EXAMINATION: VITAL SIGNS: Blood pressure is 116/56, heart rate 87, respiratory rate 16, temperature 98.4, and pul se ox 96%. GENERAL: Noted to be awake, dysarthric, not in distress. SKIN: Adequate turgor. HEENT: Pinkish conjunctivae. Anicteric sclerae. NECK: No neck mass, no carotid bruits, no JVD. CHEST: No deformities. LUNGS: Clear breath sounds. HEART: Normal sinus rhythm. No murmurs, no gallops, no rubs. ABDOMEN: Globular, soft, nontender. EXTREMITIES: No edema, no deformities. NEUROLOGIC: Dysarthric. Left-sided weakness. MEDICATIONS: Medications of 07/20/2017. LABORATORY DATA: Laboratories of 07/19/2017; white count 9.6, hemoglobin 10.9. Sodium 141, potassiu m 4.2, chloride 105, carbon dioxide 24, BUN 34, creatinine 5.27, calcium 8.5. ASSESSMENT AND PLAN: 1. Acute kidney injury - secondary to presumed ischemic acute tubular necrosis. No evidence of marlene l recovery. Continuing 3 times a week hemodialysis. My plan is to do a 4-hour hemodialysis today. 2. Labile hypertension. BP meds have been placed on hold due to the low blood pressure. 3. Agree with current management. Recheck base met and CBC in a.m.
[2017-07-20] MEDS: Oxybutynin 5 MG TAB PO SCH ×2 (13:13→20:34)
[2017-07-20] MEDS: Polyethylene Glycol 3350 17 GM Packet PO SCH (13:13)
[2017-07-20] MEDS: Labetalol 100 MG TAB PO SCH ×2 (13:14→21:45)
[2017-07-20] MEDS: hydrALAZINE 25 MG TAB PO SCH ×2 (13:14→21:45)
[2017-07-20] MEDS: predniSONE 20 MG TAB PO SCH (13:15)
[2017-07-20] MEDS: Minoxidil 10 MG TAB PO SCH (13:59)
--- NOTE | 2017-07-20 19:36 | RAD ---
ABDOMEN ONE VIEW: 07/20/17 HISTORY: Re-evaluation. Catheter projects over the right hemiabdomen and pelvis. There are distended air filled loops of larg e and small bowel. Evaluation for free air is limited without upright examination. There is contrast within the sigmoid colon. IMPRESSION: Mildly distended loops of large and small bowel may be sequela of ileus. POS: [facility]
[2017-07-21] MEDS: Oxybutynin 5 MG TAB PO SCH ×2 (09:08→20:43)
[2017-07-21] MEDS: Labetalol 100 MG TAB PO SCH (09:08)
[2017-07-21] MEDS: Minoxidil 10 MG TAB PO SCH (09:09)
[2017-07-21] MEDS: hydrALAZINE 25 MG TAB PO SCH (09:09)
[2017-07-21] MEDS: Polyethylene Glycol 3350 17 GM Packet PO SCH (09:09)
[2017-07-21] MEDS: predniSONE 20 MG TAB PO SCH (09:21)
[2017-07-21] MEDS ORDERED: Sodium Chloride 0.9% 1,000 ML IV SCH (19:15)
[2017-07-22] MEDS ORDERED: Sodium Chloride 0.9% 1,000 ML IV SCH (02:15)
[2017-07-22 06:08] LABS: Band 4 % (5-11); Hemoglobin 8.8 g/dL (14.0-18.0); Hypochromia SLIGHT = 6-15 cells (100X) (0-5/hpf); Lymphocytes 11 % (21-51); MDiff Complete? YES; Mean Corpuscular HGB CONC 32.6 g/dL (32.0-36.0); Mean Platelet Volume 7.2 fL (7.4-10.4); Monocytes 9 % (0-10); Neutrophil 76 % (42-75); PLT Morphology Comment Appears Adequate; Platelet Count 150 thou/uL (130-400); RBC Distribution Width 13.3 % (11.5-14.5); Red Blood Cell (RBC) Count 3.04 mill/uL (4.70-6.10); White Blood Cell (WBC) Count 8.4 thou/uL (4.8-10.8)
[2017-07-22] MEDS ORDERED: Heparin 10,000 UNITS/ 10 ML VIAL ONE (10:00)
[2017-07-22] MEDS: predniSONE 20 MG TAB PO SCH (14:10)
[2017-07-22] MEDS: Oxybutynin 5 MG TAB PO SCH ×2 (14:10→22:36)
[2017-07-22] MEDS: Polyethylene Glycol 3350 17 GM Packet PO SCH (14:11)
[2017-07-22] MEDS ORDERED: Dextrose 5 %-0.45 % NaCl 1,000 ML IV SCH (16:15)
--- NOTE | 2017-07-22 17:26 | CT ---
CT BRAIN 07/22/17 HISTORY: Altered mental status. Noncontrast enhanced CT images of the brain is obtained on 07/22/17. Comparison made to previous exam from 07/02/17. Noncontrast enhanced CT images of the brain demonstrate large right basal ganglia area of hemorrhage. Appears to be resolving. There is significant reduction of the volume density of the blood. There is developing encephalomalacia in the right basal ganglia and external capsule. An old area of stroke seen in the right parieto-occipital region. Diffuse cortical atrophy and deep white matter ischemic changes also seen. IMPRESSION: Resolving right basal ganglia hemorrhage. POS: [facility]
[2017-07-22] MEDS: Dextrose 5 % And 0.9 % NaCl 1,000 ML IV SCH (17:42)
[2017-07-23] MEDS: Dextrose 5 % And 0.9 % NaCl 1,000 ML IV SCH ×2 (04:17→15:04)
[2017-07-23 05:27] LABS: Hemoglobin 8.4 g/dL (14.0-18.0); Hypochromia SLIGHT = 6-15 cells (100X) (0-5/hpf); Lymphocytes 18 % (21-51); MDiff Complete? YES; Mean Corpuscular HGB CONC 33.2 g/dL (32.0-36.0); Mean Corpuscular Hemoglobin 29.3 pg (27.0-31.0); Mean Corpuscular Volume 88.5 fl (80.0-94.0); Mean Platelet Volume 6.9 fL (7.4-10.4); Monocytes 8 % (0-10); Neutrophil 74 % (42-75); PLT Morphology Comment Appears Adequate; Platelet Count 135 thou/uL (130-400); RBC Distribution Width 12.9 % (11.5-14.5); Red Blood Cell (RBC) Count 2.85 mill/uL (4.70-6.10); White Blood Cell (WBC) Count 7.4 thou/uL (4.8-10.8)
[2017-07-23] MEDS: Oxybutynin 5 MG TAB PO SCH ×2 (10:10→22:44)
[2017-07-23] MEDS: Polyethylene Glycol 3350 17 GM Packet PO SCH (10:11)
[2017-07-23 19:59] LABS: Anion Gap 11 mmol/L (10-20); BUN (Urea Nitrogen) 16 mg/dL (8.4-25.7); Calc. Creatinine Clearance 14 mL/min (70-130); Carbon Dioxide 25 mmol/L (23-31); Chloride 107 mmol/L (98-107); Estimated GFR-MDRD 14; Glucose 104 mg/dL (80-115); Potassium 3.5 mmol/L (3.5-5.1)
[2017-07-23 20:01] LABS: Sodium 139 mmol/L (136-145)
--- NOTE | 2017-07-23 22:57 | CON ---
DATE OF CONSULTATION: 07/23/2017 REASON FOR CONSULTATION: Low-grade fever, change in mental status. HISTORY OF PRESENT ILLNESS: A 71-year-old patient who has a history of hemorrhagic cerebrovascular accident in 06/21, hypertension, and stage 4 chronic renal failure, which now has progressed to end-stage renal disease, has had tunneled hemodialysis catheter placed on 07/19/2017. He developed some ileus on 07/20/[address] showed resolving right basal ganglia hemorrhage, developed temperature elevation to 100.3 and currently, Mr. Davies is awake. He seems to be not willing to cooperate with nurses starting today. He is a little bit confused, he appears awake though. He does not want to be examined. It is hard to get him to say any word and he is constipated that no respiratory symptoms. He had a swallowing study, which showed some aspiration with thin liquids and therefore has been in a modified diet but refuses to eat anything. PAST MEDICAL HISTORY: Includes hypertension, stage 4 CRF, hemorrhagic CVA in . SOCIAL HISTORY: Former alcoholism. No smoking history reportedly. ALLERGIES: Negative. CURRENT MEDICATIONS: Include Tylenol, DuoNeb, dextrose, Ditropan, and MiraLax. FAMILY HISTORY: Noncontributory. PHYSICAL EXAMINATION: VITAL SIGNS: T-max 100.3 recently, blood pressure 160/88, pulse 16-20, O2 sat 95%. There is no distress. NEUROLOGIC: He is awake, but does not establish eye contact, does not want to follow commands. He seems to understand that were in the room, but he is somewhat resisting the examination. SKIN: Shows small ulceration in the right thigh area posterior aspect. Patient has a peripheral IV access. No Solis catheter. Patient is anuric. There is a right tunneled hemodialysis catheter. The groin catheter has been removed. He has no lymphadenopathy. HEENT: Ocular movements are conjugate. No nystagmus. Pupils are equal about 2 mm and reactive. He did not allow me to examine his oral cavity. NECK: Appears stiff to all directions, but patient was resisting exam. No jugular vein distention. CARDIOVASCULAR: S1, S2 without murmurs. No S3, S4. LUNGS: Lungs are symmetric air entry with diminished breath sounds at bases. No crackles. ABDOMEN: Showing distention. No ascites. HEART: Evaluate for tenderness in view of his mental state. No bladder distention. : No genital abnormalities and was hard to do a neuro examination with him, not cooperating. EXTREMITIES: He kept his lower extremities flexed and he kept his upper extremities crossed over his abdomen, trying to avoid examination. NEURO: He is awake. He seems to realize that were in the room, but is resisting evaluation. LABORATORY DATA: White cell count was 7.9 now 7.4, hemoglobin 8.4, platelets 135, 74% neutrophils. Chemistry with creatinine 5.27. The direct bilirubin was 0.5. AST was normal, ALT was within normal limits and alkaline phosphatase was normal. Patient's serum total protein was within normal limits and albumin 3.6. Patient had immunology studies submitted, which are all negative. Urinalysis with 11-20 wbc's. Microbiology studies with sputum sample with MRSA and Shanell albicans likely colonizers. Patient had chest, abdomen, and pelvis CT on 07/10, which showed perihilar alveolar lung changes, sigmoid diverticulosis, moderate amount of stool in rectosigmoid region, enlarged prostate, trace free fluid in the pelvis. ASSESSMENT: 1. Hemorrhagic cerebrovascular accident. 2. Change in mental status. 3. Low-grade temperature elevation. 4. 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 DISCUSSION: Differential diagnosis includes thromboembolic disorder since patient cannot have proper DVT prophylaxis in view of the brain hemorrhage. Intracerebral hemorrhage can be associated with dysregulation of the core-body temperature with hyperthermia without an inflammatory process. Early pneumonitis is to be considered as well and if he continues to have worsening temperature elevation and neutrophilia, then we will have to start empiric antimicrobial therapy. For the time being, we will check his duplex ultrasound of lower extremities only, may need CT angio of the chest pending on clinical progress. Constipation with stercoral colitis and urinary tract complications would be maximized and was finally colonization of the hemodialysis catheter with bacteremia is another concern. Two sets of blood cultures have been submitted and are pending at this point in time, and we will continue following it. [facility]
[2017-07-24] MEDS: Dextrose 5 % And 0.9 % NaCl 1,000 ML IV SCH ×2 (04:53→18:07)
[2017-07-24 05:34] LABS: #Eosinphils 0.1 thou/uL (0.0-0.7); #Lymphocytes 0.7 thou/uL (1.20-3.40); #Monocytes 0.9 thou/uL (0.11-0.59); #Neutrophils 4.5 thou/uL (1.40-6.50); %Basophils 0.3 % (0.0-1.0); %Monocytes 13.8 % (0.0-10.0); Hemoglobin 8.3 g/dL (14.0-18.0); Mean Corpuscular HGB CONC 33.9 g/dL (32.0-36.0); Mean Corpuscular Hemoglobin 30.5 pg (27.0-31.0); Mean Corpuscular Volume 90.1 fl (80.0-94.0); Mean Platelet Volume 7.2 fL (7.4-10.4); Platelet Count 129 thou/uL (130-400); Red Blood Cell (RBC) Count 2.71 mill/uL (4.70-6.10); White Blood Cell (WBC) Count 6.2 thou/uL (4.8-10.8)
[2017-07-24 05:35] LABS: Anion Gap 10 mmol/L (10-20); BUN (Urea Nitrogen) 17 mg/dL (8.4-25.7); Calc. Creatinine Clearance 13 mL/min (70-130); Calcium 7.9 mg/dL (7.8-10.44); Carbon Dioxide 26 mmol/L (23-31); Chloride 108 mmol/L (98-107); Estimated GFR-MDRD 12; Glucose 102 mg/dL (80-115); Potassium 3.6 mmol/L (3.5-5.1); Sodium 140 mmol/L (136-145)
--- NOTE | 2017-07-24 08:05 | ULT ---
BILATERAL LOWER EXTREMITY VENOUS ULTRASOUND WITH DOPPLER: HISTORY: Immobility. Hemorrhagic CVA. Tachypnea and fever. COMPARISON: None. TECHNIQUE: Sanchez scale, color flow, Doppler imaging, and spectral waveform analysis was performed of the left and right lower extremity venous system. FINDINGS: Right Lower Extremity: There is compressibility, presence of flow, and augmentation in the common femoral vein, femoral vein , and popliteal vein. There is flow in the greater saphenous vein, profunda vein, and posterior tibi al vein. Left Lower Extremity: There is echogenic material in the distal femoral vein, popliteal vein, and extending to the mid post erior tibial vein. Clot in the distal femoral vein may be somewhat mobile. The greater saphenous ve in, profunda femoral vein are patent. There is flow in the common femoral vein. IMPRESSION: Left lower extremity deep vein thrombus. Clot in the distal femoral vein appears to be mobile. CODE T POS: [facility]
[2017-07-24] MEDS: Polyethylene Glycol 3350 17 GM Packet PO SCH (09:13)
[2017-07-24] MEDS: Oxybutynin 5 MG TAB PO SCH ×2 (09:13→22:06)
[2017-07-24] MEDS: cloNIDine 0.1 MG TAB PO SCH ×2 (09:13→22:05)
--- NOTE | 2017-07-24 10:19 | PRG ---
DATE OF SERVICE: 07/24/2017 SUBJECTIVE: Mr. Davies is a 71-year-old black male being followed by the Renal Service for his acut e kidney injury secondary to a prolonged acute tubular necrosis. He has been placed on dialysis. We do not see any renal recovery. Recently, the patient developed a DVT of the left lower extremity. The issue is whether we can fully anticoagulate him. We will reconsult Neurosurgery to see if they c an give the go ahead. He recently had a CVA secondary to a bleed. If he is not a candidate oral ant icoagulation we will need to place an IVC filter. No other complaints. He has also decreased p.o. intake. For that reason, he was placed on maintenan ce IV fluid. No complaints of chest pain or shortness of breath. PHYSICAL EXAMINATION: VITAL SIGNS: Blood pressure is 194/93, heart rate 94, respiratory rate 20, temperature 98.9, pulse o ximetry 93%. GENERAL: Noted to be awake, comfortable, not in distress. SKIN: Adequate turgor. HEENT: Pinkish conjunctivae. Anicteric sclerae. NECK: No neck mass, no carotid bruits, no JVD. CHEST: No deformities. LUNGS: Clear breath sounds. No wheezing, no crackles. HEART: Normal sinus rhythm. No murmur, no gallops, no rubs. ABDOMEN: Globular, soft, nontender. EXTREMITIES: No edema, no deformities. NEUROLOGICAL: Positive for dysarthria and left-sided weakness. MEDICATIONS: 07/24/2017 - Reviewed. LABORATORY: 07/24/2017 - White count 6.2, hemoglobin 8.3. Sodium 140, potassium 3.6, chloride 108, carbon dioxide 26, BUN 17, creatinine 5.68, GFR 12 mL per minute, glucose 102, calcium 7.9. ASSESSMENT AND PLAN: 1. Acute kidney injury - secondary to prolonged acute tubular necrosis. Continue supportive hemodia lysis. Avoiding heparin use for the moment due to recent cerebrovascular accident bleed. 2. Deep venous thrombosis - consult Neurosurgery, if it is feasible to start him on anticoagulation. If not, we will need a surgical consult for IVC filter. 3. Labile hypertension off blood pressure meds. Resume blood pressure meds as needed. Recheck base met and CBC in a.m.
[2017-07-24] MEDS ORDERED: Heparin 5,000 UNITS/ML VIAL ONE (10:31)
[2017-07-24] MEDS ORDERED: Bupivacaine HCl 0.5%/Epinephrine 1:200,000/PF 30 ml Vial ONE (10:31)
[2017-07-24] MEDS ORDERED: Lidocaine 2% 10 ML INJ ONE (10:32)
[2017-07-24] MEDS ORDERED: Protamine Sulfate 50 MG/5 ML VIAL ONE (10:32)
[2017-07-24] MEDS ORDERED: PHENYLEPHRINE-NS 100 MCG/ML 10 ML SYRINGE ONE (11:17)
[2017-07-24] MEDS ORDERED: Glycopyrrolate 0.2 MG/ML 5 ML SYRINGE ONE (11:17)
[2017-07-24] MEDS ORDERED: Lidocaine 1% PF 5 ML VIAL ONE ×2 (11:17→11:50)
[2017-07-24] MEDS ORDERED: Heparin 10,000 UNITS/ 10 ML VIAL ONE (11:17)
[2017-07-24] MEDS ORDERED: PROPOFOL 200 MG/20 ML VIAL ONE (11:17)
[2017-07-24] MEDS ORDERED: ePHEDrine/0.9% NaCl/PF SYRINGE 50 mg/10 ml ONE (11:17)
[2017-07-24] MEDS ORDERED: Fentanyl 100 MCG/2 ML VIAL ONE ×2 (11:49→12:12)
[2017-07-24] MEDS ORDERED: Propofol 500 MG/50 ML VIAL ONE (11:56)
[2017-07-24] MEDS ORDERED: Midazolam HCl 5 mg/5 ml Vial ONE (12:12)
--- NOTE | 2017-07-24 17:28 | OP ---
DATE OF SURGERY: 07/24/2017 PREOPERATIVE DIAGNOSES: End-stage renal disease, left hemiparesis from stroke, iatrogenic right ceph alic vein wrist, forearm antecubital area and basilic vein thrombus secondary to IV access this hospi talization. PROCEDURES PERFORMED: Right seminal fistula with venous thrombectomy and second incision antecubital area for basilic vein thrombectomy. SURGEON: Dr. Krishna Campbell ANESTHESIA: General (patient uncooperative with Regional). Local 0.5% Marcaine with epinephrine 30 mL mixed with Xylocaine, 10 mL total volume mixture used 20 mL. ESTIMATED BLOOD LOSS: 100 mL. PROCEDURE IN DETAIL: Patient was taken to the operating room where under general anesthesia, right u pper extremity was prepped with ChloraPrep, draped in routine fashion. Incision was made longitudina lly, carried down through skin and subcutaneous tissue between the cephalic vein and radial artery an d cephalic vein and radial artery dissected free. Radial artery was of good quality, was dissected f ree, surrounded with Silastic vessel loop. The cephalic vein dissected free. Branches were divided between 4-0 silk ties and clips and stump on the hand side ligated with 3-0 silk tie and clips and di vided and thrombus removed using a #5 Aicha catheter, removing thrombus from the vein. Catheter wa s placed throughout the length of cephalic upper arm. After multiple passes and retrieving thrombus, it was flushed with heparinized saline solution. The patient was given 6000 units of heparin intrav enously. Longitudinal arteriotomy was made sharply and the radial artery after clamping proximally a nd distally with vascular clamps. Arteriotomy elongated with the Rome scissors. End vein spatulate d accordingly and end vein to side radial artery anastomosis created with continuous suture of 6-0 Pr olene. Vascular clamps were released and there was a good signal in the cephalic vein throughout the forearm, but had a prominent pulsation. Incision made over the basilic vein in the antecubital area longitudinally, carried down the skin and subcutaneous issue, basilic vein had thrombus. It was dis sected free and a branch identified medially and stump ligated with clips, divided and spatulated and 5 Aicha catheter was placed, removing thrombus from the basilic vein proximally and distally reest ablishing flow. I then placed a temporary clamp across this side branch. There was still prominent pulsation proximally and the transverse venotomy made and cephalic vein at the wrist incision and a 5 Aicha catheter passed again multiple passes and they were not retaining any more thrombus. I then placed coronary dilators to a 3 mm to a 4.5 mm coronary dilator passing unobstructed with some mild resistance in the outflow cephalic vein mid forearm. The venotomy was then closed transversely with 6-0 Prolene and vascular clamps were released and good flow in the fistula. The side branch and ante cubital area was ligated with a 4-0 silk tie and incision closed by approximately subcutaneous tissue s with 3-0 Monocryl, skin with subdermal 4-0 Monocryl and DermaGlue applied. Local anesthetic infilt rated into the skin and subcutaneous tissue, volume described. If this fistula thrombosed, I would then try to stage a fistula in his upper arm, may be requiring a basilic vein transposition at a later date. We will see how this fares, see if it maintained patency . Due to iatrogenic IV access and blood draws during this hospitalization, the cephalic vein in the form may be irreparable.
[2017-07-25 05:44] LABS: #Eosinphils 0.1 thou/uL (0.0-0.7); #Lymphocytes 0.8 thou/uL (1.20-3.40); #Monocytes 0.8 thou/uL (0.11-0.59); #Neutrophils 5.3 thou/uL (1.40-6.50); %Basophils 0.3 % (0.0-1.0); %Eosinophils 1.8 % (0.0-10.0); %Lymphocytes 10.7 % (21.0-51.0); %Monocytes 11.2 % (0.0-10.0); %Neutrophils 76.1 % (42.0-75.0); Hemoglobin 7.8 g/dL (14.0-18.0); Mean Corpuscular HGB CONC 31.8 g/dL (32.0-36.0); Mean Corpuscular Hemoglobin 28.7 pg (27.0-31.0); Platelet Count 117 thou/uL (130-400); RBC Distribution Width 12.9 % (11.5-14.5); Red Blood Cell (RBC) Count 2.71 mill/uL (4.70-6.10)
[2017-07-25 05:54] LABS: Anion Gap 10 mmol/L (10-20); BUN (Urea Nitrogen) 23 mg/dL (8.4-25.7); Calc. Creatinine Clearance 11 mL/min (70-130); Calcium 7.9 mg/dL (7.8-10.44); Carbon Dioxide 26 mmol/L (23-31); Chloride 110 mmol/L (98-107); Estimated GFR-MDRD 10; Glucose 107 mg/dL (80-115); Potassium 4.1 mmol/L (3.5-5.1); Sodium 142 mmol/L (136-145)
--- NOTE | 2017-07-25 09:51 | PRG ---
DATE OF SERVICE: 07/25/2017 SUBJECTIVE: Mr. Davies is a 71-year-old black male followed up by the renal service for his acute k idney injury secondary to a prolonged acute tubular necrosis. Currently, the patient is on maintenan ce hemodialysis. I am at the bedside, supervising his hemodialysis. Recently, he was found to have a DVT on the left lower extremity. Due to his recent cerebrovascular accident secondary to bleed, he could not be anticoagulated. For t his reason, a Cardiothoracic surgery consult was done for placement of an IVC filter. Patient voices no new complaints today. He is at the dialysis, tolerating the said treatment. PHYSICAL EXAMINATION: VITAL SIGNS: Blood pressure 167/95, heart rate 103, respiratory rate 16, temperature 99, pulse ox 10 0%. GENERAL: Awake, supine, comfortable. SKIN: Adequate turgor. HEENT: Slightly pale conjunctivae, anicteric sclerae. NECK: No neck mass, no carotid bruits, no JVD. CHEST: No deformities. Lungs decreased breath sounds. HEART: Normal sinus rhythm. No murmur, no gallops, no rubs. ABDOMEN: Globular, soft, nontender, no masses. EXTREMITIES: No edema. NEUROLOGIC: Dysarthric left-sided weakness. MEDICATIONS: On 07/25/2017 reviewed. LABORATORIES: On 07/25/2017, white count 7, hemoglobin 7.8. Sodium 142, potassium 4.1, chloride 110 , carbon dioxide 26, BUN 23, creatinine 6.95, glucose 107, calcium 7.9. ASSESSMENT AND PLAN: 1. Acute kidney injury - Secondary to prolonged acute tubular necrosis. Currently status post cuffe d hemodialysis catheter placement. AV fistula has been placed by Dr. Campbell. 2. Deep venous thrombosis - For placement of IVC filter. 3. Status post cerebrovascular accident - Supportive care. 4. Anemia - Holding Epogen due to the recent cerebrovascular accident with bleed as well as holding it for the labile hypertension. Please note, patient has been restarted clonidine at 0.1 mg tab b.i. d. Overall, I agree with current management. Recheck base met and CBC in a.m. tomorrow.
[2017-07-25] MEDS ORDERED: Heparin 10,000 UNITS/ 10 ML VIAL ONE (10:00)
[2017-07-25] MEDS ORDERED: Lidocaine 1% (PF) 30 ML VIAL ONE (12:19)
[2017-07-25] MEDS: Oxybutynin 5 MG TAB PO SCH ×2 (12:30→22:29)
[2017-07-25] MEDS: cloNIDine 0.1 MG TAB PO SCH ×2 (12:30→22:29)
[2017-07-25] MEDS: Polyethylene Glycol 3350 17 GM Packet PO SCH (12:30)
[2017-07-25] MEDS: Acetaminophen 325 MG TAB PO PRN (16:46)
--- NOTE | 2017-07-25 19:59 | PRG ---
DATE OF SERVICE: 07/25/2017 SUBJECTIVE: Brad Davies is doing well today. He has a good thrill and bruit in his right arm fistu la. He underwent thrombectomy of iatrogenic thrombosed cephalic vein wrist to basilic vein upper arm . This enabled formation of a primary fistula. Surgical wounds look good. He has good thrill and b ruit in his fistula. At this point, I would avoid IV access blood draws right arm. Would continue t o excise the right arm as possible. Would recommend he follow up in my office in 2-3 weeks.
[2017-07-25] MEDS: Dextrose 5 % And 0.9 % NaCl 1,000 ML IV SCH ×2 (20:35)
[2017-07-26] MEDS: CEFAZOLIN 1 GM in Sodium Chloride 0.9% 100 ML IVPB SCH (04:36)
[2017-07-26] MEDS: cloNIDine 0.1 MG TAB PO SCH (08:48)
[2017-07-26] MEDS: Polyethylene Glycol 3350 17 GM Packet PO SCH (08:51)
[2017-07-26] MEDS: Oxybutynin 5 MG TAB PO SCH ×2 (08:51→21:15)
--- NOTE | 2017-07-26 09:22 | PRG ---
DATE OF SERVICE: 07/26/2017 RENAL MEDICINE SUBJECTIVE: Mr. Davies is a 71-year-old black male who was seen by the Renal Service for his acute kidney injury secondary to ischemic acute tubular necrosis. There is no evidence of renal recovery. He continues to undergo dialysis 3 times a week. In the interim, he had a right AV fistula placed constantin Campbell. A cuffed hemodialysis catheter was also placed. He further was diagnosed with DVT. S rimma he is not a candidate for anticoagulation, patient has been referred to Surgery for possible IVC filter placement. This morning, no new complaints. PHYSICAL EXAMINATION: VITAL SIGNS: Blood pressure 182/98, heart rate 101, respiratory rate 20, temperature 99.6, pulse ox 96%. Please note that blood pressure was noted before pressure meds. GENERAL: Awake, alert, comfortable, not in distress. SKIN: Adequate turgor. HEENT: He has slightly pale conjunctivae, anicteric sclerae. NECK: No neck mass, no carotid bruits, no JVD. CHEST: No deformities. LUNGS: Clear breath sounds. No wheezing, no crackles. HEART: Normal sinus rhythm. No murmurs, no gallops, no rubs. ABDOMEN: Globular, soft, nontender, no masses. EXTREMITIES: No edema. NEUROLOGIC: Positive for left-sided weakness. MEDICATIONS: Medications of 07/26/2017 was reviewed. LABORATORY DATA: Laboratories of 07/25/2017; hemoglobin 7.8. Sodium 142, potassium 4.1, chloride 11 0, carbon dioxide 26, BUN 23, creatinine 6.95, calcium 7.9. ASSESSMENT AND PLAN: 1. Acute kidney injury secondary to ischemic acute tubular necrosis - currently on maintenance hemod ialysis. Continuing 3 times a week hemodialysis. No evidence of renal recovery. 2. Status post right AV fistula placement - noted erythema. For this reason, we will cover him with Ancef 1 gram IV daily. 3. Labile hypertension. Continue current blood pressure medications. 4. Deep venous thrombosis. Surgical consult has been done for possible IVC placement.
[2017-07-26] MEDS: Dextrose 5 % And 0.9 % NaCl 1,000 ML IV SCH (09:29)
--- NOTE | 2017-07-26 11:41 | PRG ---
DATE OF SERVICE: 07/26/2017 Brad Davies is status post thrombectomy and right Dino fistula. The patient is doing well. Nurse s were concerned about some bruising about his antecubital incision medially. This is postoperative changes, ecchymosis and there is no evidence of cellulitis. He has good thrill and bruit in his fist moy. The patient is doing well. He can be discharged home anytime from a surgical standpoint. He s hould exercise his right arm. He should avoid blood draws and IVs and blood pressures in his right a rm. Follow up in my office in 3-4 weeks. I will see him as needed this hospitalization.
[2017-07-26] MEDS: cloNIDine 0.2 MG TAB PO SCH (21:16)
[2017-07-27] MEDS: CEFAZOLIN 1 GM in Sodium Chloride 0.9% 100 ML IVPB SCH (05:11)
[2017-07-27] MEDS ORDERED: Fentanyl 100 MCG/2 ML VIAL ONE ×2 (07:16)
[2017-07-27] MEDS ORDERED: Midazolam HCl 2 mg/2 ml Vial ONE (07:16)
[2017-07-27] MEDS ORDERED: Lidocaine 1% (PF) 30 ML VIAL ONE (07:17)
[2017-07-27] MEDS ORDERED: Ondansetron HCl/PF 4 MG/2 ML Vial IVP PRN (08:36)
[2017-07-27] MEDS ORDERED: Promethazine HCl 25 MG/ML VIAL IM PRN (08:36)
[2017-07-27] MEDS ORDERED: Promethazine HCl 25 MG/ML VIAL SLOW IVP PRN (08:36)
[2017-07-27] MEDS ORDERED: Heparin 10,000 UNITS/ 10 ML VIAL ONE (09:00)
--- NOTE | 2017-07-27 09:48 | OP ---
DATE OF PROCEDURE: 07/27/2017 PREOPERATIVE DIAGNOSES: Deep venous thrombosis left leg with contraindication to anticoagulation. PROCEDURE: IVC filter placement using the [employer]rapE[employer] filter. SURGEON: Dr. Thien Stokes ANESTHESIA: General, LMA. PROCEDURE IN DETAIL: After adequate anesthesia had been obtained, right groin was prepped. Lidocain e infiltrated into the skin and ultrasound guided puncture of the femoral vein was carried out. Dila tor and sheath were advanced over the wire under fluoroscopic guidance. Contrast venography was perf ormed x2 clearly demonstrating the right renal vein. The left renal vein was not visualized. The ve na cava did not have any thrombus present and was of a satisfactory size for filter deployment. The filter was then deployed with the top of the filter at the bottom of the right renal vein. Sheath wa s removed. The patient tolerated the procedure well. CONTRAST: 12 mL. FLUOROSCOPY: Fluoro time 0.7 minutes.
[2017-07-27] MEDS ORDERED: Iopamidol 370 76% 50 ML VIAL FS ONE (11:45)
[2017-07-27] MEDS: cloNIDine 0.2 MG TAB PO SCH ×2 (12:10→20:50)
[2017-07-27] MEDS: Oxybutynin 5 MG TAB PO SCH ×2 (12:11→20:49)
[2017-07-27] MEDS: Polyethylene Glycol 3350 17 GM Packet PO SCH (12:11)
[2017-07-27] MEDS ORDERED: PROPOFOL 200 MG/20 ML VIAL ONE (13:15)
[2017-07-27] MEDS ORDERED: Lidocaine 1% PF 5 ML VIAL ONE (13:15)
--- NOTE | 2017-07-27 19:32 | PRG ---
DATE OF SERVICE: 07/27/2017 RENAL MEDICINE SUBJECTIVE: Mr. Davies is a 71-year-old black male with known history of acute kidney injury from p resumed acute tubular necrosis. He is currently on maintenance hemodialysis. I am at the bedside abbasi pervising his dialysis. Please note he developed right DVT. Due to his recent cerebrovascular accid ent bleed, he was not a candidate for anticoagulation. An IVC filter placement was done today and sh e tolerated the procedure. No new complaints today. PHYSICAL EXAMINATION: VITAL SIGNS: Blood pressure 152/88, heart rate 104, respiratory rate 14, temperature 99, pulse ox 94 %. GENERAL: Awake, alert, comfortable. SKIN: Adequate turgor. HEENT: Slightly pale conjunctivae, anicteric sclerae. NECK: No neck mass, no carotid bruits, no JVD. CHEST: No deformities. LUNGS: Clear breath sounds. HEART: Normal sinus rhythm. No murmurs, no gallops, no rubs. ABDOMEN: Globular, soft, nontender, no masses. EXTREMITIES: No edema. MEDICATIONS: Medications of 07/27/2017 was reviewed. LABORATORY DATA: Laboratories of 07/25/2017; white count 7, hemoglobin 7.8. Sodium 142, potassium 4 .1, chloride 110, carbon dioxide 26, BUN 23, creatinine 6.95, glucose 107, calcium 7.9. ASSESSMENT AND PLAN: 1. End-stage renal disease, stable. Continuing current Monday, , and Monday dialysis reg imen. Fluid removal only as tolerated. 2. Deep venous thrombosis - right leg - status post IVC filter placement. 3. Status post cerebrovascular accident secondary to bleed, supportive care. Eventual rehab placeme . 4. Labile hypertension. Blood pressure is higher today. For that reason, we have decided to adjust his BP medication. His clonidine was increased to 0.2 mg p.o. b.i.d. Recheck base met and CBC in a.m.
[2017-07-27] MEDS: Acetaminophen 325 MG TAB PO PRN (20:51)
[2017-07-28] MEDS: CEFAZOLIN 1 GM in Sodium Chloride 0.9% 100 ML IVPB SCH (03:11)
[2017-07-28 04:53] LABS: Anion Gap 8 mmol/L (10-20); BUN (Urea Nitrogen) 14 mg/dL (8.4-25.7); Calc. Creatinine Clearance 17 mL/min (70-130); Calcium 8.2 mg/dL (7.8-10.44); Carbon Dioxide 31 mmol/L (23-31); Chloride 103 mmol/L (98-107); Estimated GFR-MDRD 16; Glucose 106 mg/dL (80-115); Potassium 3.1 mmol/L (3.5-5.1); Sodium 139 mmol/L (136-145)
[2017-07-28 05:03] LABS: #Eosinphils 0.2 thou/uL (0.0-0.7); #Lymphocytes 0.8 thou/uL (1.20-3.40); #Monocytes 0.7 thou/uL (0.11-0.59); #Neutrophils 3.5 thou/uL (1.40-6.50); %Basophils 0.2 % (0.0-1.0); %Eosinophils 3.3 % (0.0-10.0); %Lymphocytes 16.1 % (21.0-51.0); %Monocytes 12.9 % (0.0-10.0); %Neutrophils 67.4 % (42.0-75.0); Hemoglobin 6.9 g/dL (14.0-18.0); Mean Corpuscular HGB CONC 33.6 g/dL (32.0-36.0); Mean Corpuscular Hemoglobin 30.2 pg (27.0-31.0); Mean Corpuscular Volume 90.1 fl (80.0-94.0); Mean Platelet Volume 7.9 fL (7.4-10.4); Platelet Count 98 thou/uL (130-400); RBC Distribution Width 13.1 % (11.5-14.5); White Blood Cell (WBC) Count 5.1 thou/uL (4.8-10.8)
--- NOTE | 2017-07-28 06:51 | PRG ---
DATE OF SERVICE: 07/28/2017 SERVICE: Renal Medicine. SUBJECTIVE: Mr. Davies is a 71-year-old black male with acute kidney injury secondary to presumed a cute tubular necrosis. He underwent placement of an IVC filter yesterday. This was secondary to solis p venous thrombosis and the patient would not be anticoagulated due to the recent CVA secondary to bl eed. This morning, no new complaints. PHYSICAL EXAMINATION: VITAL SIGNS: Blood pressure 127/69, heart rate 88, respiratory rate 16, temperature 98.9, pulse ox 9 4%. GENERAL: Awake, alert, not in distress. SKIN: Adequate turgor. HEENT: Pale conjunctivae, anicteric sclerae. NECK: No neck mass, no carotid bruits, no JVD. CHEST: No deformities. LUNGS: Clear breath sounds, no wheezing, no crackles. HEART: Normal sinus rhythm. No murmur, no gallops, no rubs. ABDOMEN: Globular, soft, nontender, no masses. EXTREMITIES: No edema, no deformities. Positive for right AV fistula. NEUROLOGICAL EXAM: Dysarthric. Positive for left-sided weakness. MEDICATIONS: Of 07/28/2017 was reviewed. LABORATORY DATA: Of 07/28/2017, white count 5.1, hemoglobin 6.9, hematocrit 20.7. Sodium 139, potas sium 3.1, chloride 103, carbon dioxide 31, BUN 14, creatinine 4.34, glucose 106, calcium 8.2. ASSESSMENT AND PLAN: 1. Acute kidney injury - secondary to a presumed ischemic acute tubular necrosis. No evidence of re nal recovery. Continue to monitor renal function closely. Continue current 3 times a week hemodialy sis. 2. Anemia - we will give 1 unit packed red blood cells today. 3. Deep venous thrombosis - status post IVC filter placement. 4. Mild hypokalemia. KCl 40 mEq IV to run for 2 hours x1 dose. Recheck base met and CBC in a.m.
[2017-07-28] MEDS: Potassium Chloride 20 MEQ in Premix Bag 1 BAG IVPB SCH ×2 (08:13→14:40)
[2017-07-28] MEDS: Oxybutynin 5 MG TAB PO SCH ×2 (08:59→21:41)
[2017-07-28] MEDS: cloNIDine 0.2 MG TAB PO SCH ×2 (08:59→21:39)
[2017-07-28] MEDS: Polyethylene Glycol 3350 17 GM Packet PO SCH (08:59)
[2017-07-29] MEDS: CEFAZOLIN 1 GM in Sodium Chloride 0.9% 100 ML IVPB SCH (04:03)
[2017-07-29 05:11] LABS: #Eosinphils 0.1 thou/uL (0.0-0.7); #Lymphocytes 0.8 thou/uL (1.20-3.40); #Monocytes 0.9 thou/uL (0.11-0.59); #Neutrophils 4.2 thou/uL (1.40-6.50); %Basophils 0.5 % (0.0-1.0); %Eosinophils 2.2 % (0.0-10.0); %Lymphocytes 12.8 % (21.0-51.0); %Monocytes 14.5 % (0.0-10.0); Hemoglobin 7.8 g/dL (14.0-18.0); Mean Corpuscular HGB CONC 33.3 g/dL (32.0-36.0); Mean Corpuscular Hemoglobin 29.6 pg (27.0-31.0); Mean Corpuscular Volume 88.7 fl (80.0-94.0); Mean Platelet Volume 7.4 fL (7.4-10.4); Platelet Count 112 thou/uL (130-400); RBC Distribution Width 12.7 % (11.5-14.5); Red Blood Cell (RBC) Count 2.63 mill/uL (4.70-6.10)
[2017-07-29 05:41] LABS: Anion Gap 8 mmol/L (10-20); BUN (Urea Nitrogen) 22 mg/dL (8.4-25.7); Calc. Creatinine Clearance 13 mL/min (70-130); Calcium 8.1 mg/dL (7.8-10.44); Carbon Dioxide 31 mmol/L (23-31); Chloride 105 mmol/L (98-107); Estimated GFR-MDRD 11; Glucose 101 mg/dL (80-115); Potassium 3.2 mmol/L (3.5-5.1); Sodium 141 mmol/L (136-145)
--- NOTE | 2017-07-29 10:53 | PRG ---
DATE OF SERVICE: 07/29/2017 RENAL MEDICINE SUBJECTIVE: Mr. Davies is a 71-year-old black male with known history of acute renal failure second kendy to ischemic ATN. He also has developed DVT and IVC filter has been placed. Please note, he rece ntly had a CVA secondary to a bleed. No new complaints today. He is undergoing dialysis. I am at t he bedside supervising dialysis. He is tolerating said treatment. PHYSICAL EXAMINATION: VITAL SIGNS: Blood pressure is 165/98, heart rate 96, respiratory rate 16, temperature 99.8, pulse o x 100%. GENERAL: Noted to be awake, alert, comfortable, not in distress. SKIN: Adequate turgor. HEENT: He has slightly pale conjunctivae, anicteric sclerae. NECK: No neck mass, no carotid bruits, no JVD. CHEST: No deformities. LUNGS: Clear breath sounds. No wheezing, no crackles. HEART: Normal sinus rhythm. No murmur, no gallops, no rubs. ABDOMEN: Globular, soft, nontender, no masses. EXTREMITIES: No edema. NEUROLOGIC: Dysarthric. Left-sided weakness. MEDICATIONS: Of 07/29/2017 was reviewed. LABORATORY DATA: Of 07/29/2017, white count 6, hemoglobin 7.8. Sodium 141, potassium 3.2, chloride 105, carbon dioxide 31, BUN 22, creatinine 5.94, glucose 101, calcium 8.1. ASSESSMENT AND PLAN: 1. Mild hyperkalemia, adjust potassium bath with the dialysis. We will use a 4.0 potassium bath. 2. Acute kidney injury - ischemic acute tubular necrosis. No evidence of renal recovery. Continue 3 times a week hemodialysis. Tolerating said treatment. Fluid removal only as tolerated. 3. Labile hypertension. Continue current blood pressure medications. 4. Status post deep venous thrombosis. The patient had an inferior vena cava filter placed. 5. Anemia p.m. blood transfusion. Recheck base met and CBC in a.m.
[2017-07-29 11:54] LABS: Hep B Core Total Ab Non-Reactive (NonReactive); Hep B Core Total Index 0.06 S/CO (0-0.79)
[2017-07-29 11:55] LABS: HBSAB Concentration 0.82 mIU/mL; HBSAg Index 0.15 S/CO (0-0.99); Hep B Core Total Ab Non-Reactive (NonReactive); Hep B Core Total Index 0.07 S/CO (0-0.79); Hep B Surf AB Non-Reactive (NonReactive); Hep B Surf Ag Non-Reactive S/CO (NonReactive)
[2017-07-29] MEDS: cloNIDine 0.2 MG TAB PO SCH ×2 (11:57→22:23)
[2017-07-29] MEDS: Oxybutynin 5 MG TAB PO SCH ×2 (11:57→22:23)
[2017-07-29] MEDS: Acetaminophen 325 MG TAB PO PRN ×2 (11:58→22:23)
[2017-07-29] MEDS: Polyethylene Glycol 3350 17 GM Packet PO SCH (11:58)
[2017-07-29] MEDS ORDERED: Potassium Chloride 40 MEQ in Sodium Chloride 0.9% 250 ML 250 ML IVPB SCH (14:30)
[2017-07-30] MEDS: CEFAZOLIN 1 GM in Sodium Chloride 0.9% 100 ML IVPB SCH (04:58)
[2017-07-30 06:02] LABS: Anion Gap 13 mmol/L (10-20); BUN (Urea Nitrogen) 18 mg/dL (8.4-25.7); Calc. Creatinine Clearance 17 mL/min (70-130); Calcium 8.7 mg/dL (7.8-10.44); Carbon Dioxide 27 mmol/L (23-31); Chloride 102 mmol/L (98-107); Estimated GFR-MDRD 16; Glucose 109 mg/dL (80-115); Sodium 138 mmol/L (136-145)
[2017-07-30 06:25] LABS: Band 7 % (5-11); Eosinophils 2 % (0-10); Hemoglobin 8.8 g/dL (14.0-18.0); Lymphocytes 20 % (21-51); MDiff Complete? YES; Mean Corpuscular HGB CONC 32.2 g/dL (32.0-36.0); Mean Corpuscular Hemoglobin 28.8 pg (27.0-31.0); Mean Corpuscular Volume 89.5 fl (80.0-94.0); Monocytes 8 % (0-10); Neutrophil 63 % (42-75); PLT Morphology Comment Appears Decreased; Platelet Count 118 thou/uL (130-400); RBC Distribution Width 12.6 % (11.5-14.5); Red Blood Cell (RBC) Count 3.06 mill/uL (4.70-6.10)
--- NOTE | 2017-07-30 09:05 | PRG ---
DATE OF SERVICE: 07/30/2017 RENAL MEDICINE SUBJECTIVE: Mr. Davies is a 71-year-old black male with known history of CVA secondary to bleed, re cent DVT, status post IVC filter placement, labile hypertension and acute kidney injury and now being followed up by Renal Service for his maintenance hemodialysis. He continues to be placed on 3 times a week hemodialysis. He is tolerating said treatment. He voices no new complaints today. PHYSICAL EXAMINATION: VITAL SIGNS: Blood pressure is 177/94 - before BP meds, heart rate 81, respiratory rate 16, temperat ure 99.3, pulse ox 92%. GENERAL: Noted to be awake, alert, comfortable, not in distress. SKIN: Adequate turgor. HEENT: He has slightly pale conjunctivae, anicteric sclerae. NECK: No neck mass, no carotid bruits, no JVD. CHEST: No deformities. LUNGS: Clear breath sounds. No wheezing, no crackles. HEART: Normal sinus rhythm. No murmurs, no gallops, no rubs. ABDOMEN: Globular, soft, nontender, no masses. EXTREMITIES: No edema, no deformities. NEUROLOGIC: The patient is dysarthric. He has left-sided weakness. MEDICATIONS: Medications of 07/30/2017 was reviewed. LABORATORY DATA: Laboratories of 07/30/2017; white count 6, hemoglobin 8.8. Sodium 130, potassium 4 .0, chloride 102, carbon dioxide 27, BUN 18, creatinine 4.38, glucose 109, calcium 8.7. ASSESSMENT AND PLAN: 1. Acute kidney injury - secondary to prolonged acute tubular necrosis. No evidence of renal recove ry. Continuing 3 times a week hemodialysis. I still do anticipate some renal recovery with this pat ient. Continue daily base met. No indication for any emergent hemodialysis today. He underwent hem odialysis yesterday without any difficulty. 2. Deep venous thrombosis - status post IVC filter placement. The patient is not a candidate for an ticoagulation. 3. Status post CVA secondary to bleed - supportive care and eventual rehab placement. Agree with current management.
[2017-07-30] MEDS: Milk Of Magnesia 30 ML UDCUP PO PRN (14:32)
[2017-07-30] MEDS: Polyethylene Glycol 3350 17 GM Packet PO SCH (14:32)
[2017-07-30] MEDS: Oxybutynin 5 MG TAB PO SCH ×2 (14:32→21:58)
[2017-07-30] MEDS: cloNIDine 0.2 MG TAB PO SCH ×2 (14:33→21:58)
[2017-07-30] MEDS: Acetaminophen 325 MG TAB PO PRN ×2 (14:35→22:00)
[2017-07-31] MEDS: CEFAZOLIN 1 GM in Sodium Chloride 0.9% 100 ML IVPB SCH (04:28)
[2017-07-31 05:50] LABS: #Eosinphils 0.2 thou/uL (0.0-0.7); #Monocytes 0.9 thou/uL (0.11-0.59); #Neutrophils 3.9 thou/uL (1.40-6.50); %Basophils 0.3 % (0.0-1.0); %Lymphocytes 16.4 % (21.0-51.0); %Monocytes 14.6 % (0.0-10.0); %Neutrophils 65.7 % (42.0-75.0); Hemoglobin 8.2 g/dL (14.0-18.0); Mean Corpuscular HGB CONC 33.4 g/dL (32.0-36.0); Mean Corpuscular Volume 89.8 fl (80.0-94.0); Mean Platelet Volume 7.9 fL (7.4-10.4); Platelet Count 145 thou/uL (130-400); RBC Distribution Width 12.7 % (11.5-14.5); Red Blood Cell (RBC) Count 2.72 mill/uL (4.70-6.10)
[2017-07-31 05:59] LABS: Anion Gap 14 mmol/L (10-20); BUN (Urea Nitrogen) 31 mg/dL (8.4-25.7); Calc. Creatinine Clearance 11 mL/min (70-130); Calcium 8.6 mg/dL (7.8-10.44); Carbon Dioxide 28 mmol/L (23-31); Chloride 100 mmol/L (98-107); Estimated GFR-MDRD 10; Glucose 122 mg/dL (80-115); Sodium 138 mmol/L (136-145)
[2017-07-31] MEDS: Polyethylene Glycol 3350 17 GM Packet PO SCH (09:02)
[2017-07-31] MEDS: Oxybutynin 5 MG TAB PO SCH ×2 (09:02→20:37)
[2017-07-31] MEDS: cloNIDine 0.2 MG TAB PO SCH ×2 (09:02→20:36)
--- NOTE | 2017-07-31 10:25 | PRG ---
DATE OF SERVICE: 07/31/2017 SUBJECTIVE: Mr. Davies is a 71-year-old black male who was admitted recently for a CVA secondary to a bleed. We have consulted with this patient due to his acute kidney injury secondary to presumed a cute tubular necrosis. He has been placed hemodialysis on a 3 times a week regimen. An AV fistula h as also been placed in the interim. He has also had labile hypertension which is slightly improved. This morning the patient is more awake. He voices no new complaints. He denies any chest pain or s hortness of breath. He was also started on Ancef for AV fistula erythema. PHYSICAL EXAMINATION: VITAL SIGNS: Blood pressure is 142/73, heart rate 106, respiratory rate 16, temperature 98.6, pulse oximetry 98% on room air. GENERAL: Awake, alert, comfortable, not in distress, mildly dysarthric. SKIN: Adequate turgor. HEENT: He has slightly pale conjunctivae, anicteric sclerae. NECK: No neck mass, no carotid bruits, no JVD. CHEST: No deformities. LUNGS: Clear breath sounds. HEART: Normal sinus rhythm. No murmur, no gallops, no rubs. ABDOMEN: Globular, soft, nontender, no masses. EXTREMITIES: No edema, no deformities. NEUROLOGIC: Awake, can follow simple commands. Left-sided weakness. MEDICATIONS: 07/31/2017 - Reviewed. LABORATORY DATA: 07/31/2017 - White count 6, hemoglobin 8.2. Sodium 138, potassium 4, chloride 100, carbon dioxide 28, BUN 31, creatinine 6.42, glucose 122, calcium 8.6. ASSESSMENT AND PLAN: 1. Anemia. Start ferrous sulfate 325 mg b.i.d. We will also start Epogen on this patient at 7500 un its subcutaneously every week. 2. Acute kidney injury secondary to ischemic acute tubular necrosis. No evidence of renal recovery. Continue supportive hemodialysis of Monday, , and Monday. Again, fluid removal only as tolerated. 3. Labile hypertension. Continue current blood pressure medications. 4. Status post cerebrovascular accident secondary to bleed, supportive care. Eventual placement to rehab versus [facility]dc facility. Recheck base met and CBC in a.m.
[2017-07-31] MEDS: Epoetin (ESRD) 20,000 UNITS/ML SC SCH (13:39)
[2017-07-31] MEDS: Ferrous Sulfate 325 MG TAB PO SCH (15:51)
[2017-07-31] MEDS: Acetaminophen 325 MG TAB PO PRN (15:52)
[2017-07-31] MEDS: Mirtazapine 15 MG TAB PO SCH (20:35)
[2017-07-31] MEDS: Bisacodyl 10 MG SUPP PR SCH (20:37)
[2017-07-31] MEDS ORDERED: Mirtazapine 15 MG TAB PO SCH (21:00)
[2017-08-01] MEDS: CEFAZOLIN 1 GM in Sodium Chloride 0.9% 100 ML IVPB SCH (03:22)
[2017-08-01 05:20] LABS: #Eosinphils 0.1 thou/uL (0.0-0.7); #Lymphocytes 0.9 thou/uL (1.20-3.40); #Neutrophils 5.1 thou/uL (1.40-6.50); %Basophils 0.3 % (0.0-1.0); %Lymphocytes 12.6 % (21.0-51.0); %Monocytes 13.4 % (0.0-10.0); %Neutrophils 71.7 % (42.0-75.0); Hemoglobin 8.2 g/dL (14.0-18.0); Mean Corpuscular HGB CONC 31.9 g/dL (32.0-36.0); Mean Corpuscular Hemoglobin 28.8 pg (27.0-31.0); Mean Corpuscular Volume 90.2 fl (80.0-94.0); Mean Platelet Volume 7.2 fL (7.4-10.4); Platelet Count 168 thou/uL (130-400); RBC Distribution Width 12.6 % (11.5-14.5); Red Blood Cell (RBC) Count 2.85 mill/uL (4.70-6.10); White Blood Cell (WBC) Count 7.1 thou/uL (4.8-10.8)
[2017-08-01 05:42] LABS: Anion Gap 16 mmol/L (10-20); BUN (Urea Nitrogen) 47 mg/dL (8.4-25.7); Calc. Creatinine Clearance 9 mL/min (70-130); Calcium 8.5 mg/dL (7.8-10.44); Carbon Dioxide 23 mmol/L (23-31); Chloride 102 mmol/L (98-107); Estimated GFR-MDRD 8; Glucose 104 mg/dL (80-115); Potassium 4.7 mmol/L (3.5-5.1); Sodium 136 mmol/L (136-145)
--- NOTE | 2017-08-01 08:04 | PRG ---
DATE OF SERVICE: 08/01/2017 SUBJECTIVE: Mr. Davies is a 71-year-old black male, who was admitted for a CVA from a bleed, severe obstipation, and being followed by the Renal Service for his acute kidney injury secondary to presum ed acute tubular necrosis. He is currently on hemodialysis 3 times a week. There is no evidence of renal recovery at the present time. He is scheduled for a Monday, , and Monday dialysis regimen. This morning he voices no ne w complaints. He denies any chest pain or shortness of breath. In the interim, he also developed a DVT and an IVC filter has been placed, due to the relative contra indication for anticoagulation. OBJECTIVE: VITAL SIGNS: Blood pressure 165/91, heart rate 98, respiratory rate 14, pulse oximetry 98% - room ai r, temperature 99.1. GENERAL EXAM: Noted to be awake, alert, comfortable, not in distress. SKIN: Adequate turgor. HEENT: Pinkish conjunctivae, anicteric sclerae. NECK: No neck mass, no carotid bruits, no JVD. CHEST: No deformities. LUNGS: Clear breath sounds. HEART: Normal sinus rhythm. No murmur, no gallops, no rubs. ABDOMEN: Globular, soft, nontender, no masses. EXTREMITIES: No edema, no deformities. NEUROLOGICAL EXAM: Awake, dysarthric, left-sided weakness. Medications of 08/01/2017 was reviewed. LABORATORY DATA: Laboratories of 08/01/2017, white count 7.1, hemoglobin 8.2. Sodium 136, potassium 4.7, chloride 102, carbon dioxide 23, BUN 47, creatinine 7.85, glucose 104, calcium 8.5. ASSESSMENT AND PLAN: 1. Acute kidney injury - no evidence of renal recovery. Continue 3 times a week hemodialysis regime n. My plan is to remove fluid removal only as tolerated. 2. Anemia, p.m. blood transfusion. Iron supplementation as well as Epogen has been started. 3. Labile hypertension, stable and much improved. 4. Status post cerebrovascular accident. Supportive care. Recheck basic metabolic panel and CBC in a.m.
[2017-08-01] MEDS: Oxybutynin 5 MG TAB PO SCH ×2 (11:55→21:44)
[2017-08-01] MEDS: Ferrous Sulfate 325 MG TAB PO SCH ×2 (11:55→16:26)
[2017-08-01] MEDS: cloNIDine 0.2 MG TAB PO SCH ×2 (11:55→21:43)
[2017-08-01] MEDS: Polyethylene Glycol 3350 17 GM Packet PO SCH (11:56)
--- NOTE | 2017-08-01 15:31 | RAD ---
FRONTAL VIEW ABDOMEN KUB: Date: 08/01/17 COMPARISON: 07/20/17. INDICATION: Constipation. FINDINGS: There is a nonspecific bowel gas pattern. Mild degree of retained fecal material seen within the colo n. Patient is rotated, which limits assessment. IMPRESSION: 1. Mild retained fecal material of the colon. 2. Nonspecific bowel gas pattern. POS: [facility]
[2017-08-01] MEDS ORDERED: Magnesium Citrate 300 ML BOT PO SCH (16:45)
[2017-08-01] MEDS: Mirtazapine 15 MG TAB PO SCH (21:44)
[2017-08-01] MEDS: Bisacodyl 10 MG SUPP PR SCH (21:45)
[2017-08-02 06:15] LABS: Anion Gap 13 mmol/L (10-20); BUN (Urea Nitrogen) 30 mg/dL (8.4-25.7); Calc. Creatinine Clearance 13 mL/min (70-130); Calcium 9.1 mg/dL (7.8-10.44); Carbon Dioxide 29 mmol/L (23-31); Chloride 99 mmol/L (98-107); Estimated GFR-MDRD 12; Glucose 113 mg/dL (80-115); Potassium 4.3 mmol/L (3.5-5.1); Sodium 137 mmol/L (136-145)
[2017-08-02 06:47] LABS: Band 1 % (5-11); Eosinophils 3 % (0-10); Hemoglobin 9.2 g/dL (14.0-18.0); Lymphocytes 14 % (21-51); MDiff Complete? YES; Mean Corpuscular HGB CONC 32.2 g/dL (32.0-36.0); Mean Corpuscular Hemoglobin 28.8 pg (27.0-31.0); Mean Corpuscular Volume 89.5 fl (80.0-94.0); Mean Platelet Volume 7.4 fL (7.4-10.4); Monocytes 15 % (0-10); Neutrophil 67 % (42-75); Platelet Count 183 thou/uL (130-400); RBC Distribution Width 12.6 % (11.5-14.5); Red Blood Cell (RBC) Count 3.19 mill/uL (4.70-6.10)
--- NOTE | 2017-08-02 08:27 | PRG ---
DATE OF SERVICE: 08/02/2017 SUBJECTIVE: Mr. Davies is a 71-year-old black male being followed up by the Renal Service for his acute kidney injury secondary to acute tubular necrosis. He was initially admitted for severe obstip ation and he had recent CVA secondary to a bleed. During this hospitalization, he developed DVT. An IVC filter has been placed. He is also on maintenance hemodialysis. There is no evidence of renal recovery at the present time. No new complaints today. Appetite fair. No chest pain or shortness of breath. OBJECTIVE: VITAL SIGNS: Blood pressure 171/93, heart rate 107, respiratory rate 12, temperature 100.4, pulse ox 94%. GENERAL: Noted to be awake, alert, comfortable, not in distress. SKIN: Adequate turgor. HEENT: He has pinkish conjunctivae, anicteric sclerae. NECK: No neck mass, no carotid bruits, no JVD. CHEST: No deformities. LUNGS: Clear breath sounds. HEART: Normal sinus rhythm. No murmur, no gallops or rubs. ABDOMEN: Globular, soft, nontender, no masses. EXTREMITIES: No edema. MEDICATIONS: 08/02/2017 - Reviewed. LABORATORY DATA: 08/02/2017 - Sodium 137, potassium 4.3, chloride 99, carbon dioxide 29, BUN 30, cre atinine 5.63, glucose 113, calcium 9.1, white count 8.0, hemoglobin 9.2. 08/01/2017 - X-ray of the abdomen showed mild retained fecal material of the colon, nonspecific gas p attern. ASSESSMENT AND PLAN: 1. Acute kidney injury - secondary to acute tubular necrosis. No evidence of renal recovery, contin uing 3 times a week hemodialysis. The patient tolerated dialysis regimen yesterday. Again, fluid re moval only as tolerated. 2. Fever. Consider blood and urine culture with this patient. Chest x-ray will also be ordered. 3. Anemia, stabilizing on Epogen and iron supplementation. Continue supportive care.
--- NOTE | 2017-08-02 10:47 | RAD ---
PORTABLE CHEST: HISTORY: Fever. Shortness of breath. COMPARISON: Comparison is made to chest film of 07/19/[address] of 07/10/17. FINDINGS: Chest CT showed extensive bilateral alveolar infiltrates from 07/10/17. Lungs appear well aerated on the current AP chest film with no evidence of consolidation or definite infiltrate indicating interval improvement when compared to the CT of 07/10/17. Large-caliber central line has tip overlying the SVC. POS: [facility]
[2017-08-02] MEDS: Polyethylene Glycol 3350 17 GM Packet PO SCH (12:22)
[2017-08-02] MEDS: cefTRIAXone\\ROCEPHIN 1 GM in Sodium Chloride 0.9% 100 ML IVPB SCH (12:25)
[2017-08-02] MEDS: Ferrous Sulfate 325 MG TAB PO SCH ×2 (12:26→19:04)
[2017-08-02] MEDS: Milk Of Magnesia 30 ML UDCUP PO PRN (12:26)
[2017-08-02] MEDS: Oxybutynin 5 MG TAB PO SCH ×2 (12:26→20:27)
[2017-08-02] MEDS: cloNIDine 0.2 MG TAB PO SCH ×2 (12:26→20:28)
[2017-08-02] MEDS: Acetaminophen 325 MG TAB PO PRN (12:30)
[2017-08-02 15:01] LABS: Bilirubin Negative (Negative); Blood, Urine Large (Negative); Clarity CLOUDY (Clear); Glucose, Urine (Dipstick) Negative (Negative); Leukocyte Moderate (Negative); Nitrite Negative (Negative); Protein, Urine (Dipstick) 300 mg/dL (Neg-Trace); Specific Gravity, Urine 1.015 (1.002-1.036); Urobilinogen 0.2 mg/dL (0.2-1.0); pH, Urine 7.5 (5.0-9.0)
[2017-08-02 15:04] LABS: Bacteria/HPF None Seen HPF (None Seen); Hyaline Casts/LPF 0-3 HYALINE CAST LPF (0-3 Hyaline); Squamous Epithelial None Seen HPF (0-3)
[2017-08-02 15:24] LABS: Yeast-All Forms None Seen HPF (None Seen)
[2017-08-02] MEDS: Mirtazapine 15 MG TAB PO SCH (20:28)
[2017-08-02] MEDS: Bisacodyl 10 MG SUPP PR SCH (20:28)
[2017-08-02] MEDS: hydrALAZINE 20 MG/ML VIAL SLOW IVP PRN (20:29)
--- NOTE | 2017-08-03 08:22 | PRG ---
DATE OF SERVICE: 08/03/2017 SUBJECTIVE: Mr. Davies is a 71-year-old black male with acute kidney injury and on maintenance hemo dialysis and currently being followed by the Renal Service. No acute events. He still is noted to b e febrile. A [place] culture has been done with this patient. Please note C. diff antigen has also been ordered for this patient and they were said to be negative. No other complaints today. He still has decreased p.o. intake. Consideration for a PEG tube is darrin haywood considered. PHYSICAL EXAMINATION: VITAL SIGNS: Blood pressure 148/83, heart rate 105, respiratory rate 16, temperature 101.3, pulse ox 99%. GENERAL: Noted to be awake, comfortable, not in overt distress. SKIN: Adequate turgor. HEENT: He has pinkish conjunctivae, anicteric sclerae. NECK: No neck mass, no carotid bruits, no JVD. CHEST: No deformities. LUNGS: Clear breath sounds. HEART: Normal sinus rhythm. No murmur, no gallops, no rubs. ABDOMEN: Globular, soft, nontender, no masses. EXTREMITIES: No edema, no deformities. NEUROLOGICAL: Decreased motor left side. MEDICATIONS: 08/03/2017 - Reviewed. Please note he was on empiric IV antibiotics with ceftriaxone. LABORATORY: 08/02/2017 - BUN 30, creatinine 5.63. 08/03/2017 - Currently pending. 08/02/2017 - Chest x-ray shows no evidence of consolidation or definite infiltrate indicating some im provement based on the last CT scan. ASSESSMENT AND PLAN: 1. Acute kidney injury - secondary to prolonged ischemic acute tubular necrosis. Continuing current hemodialysis regimen of Monday, , and Monday. Again, fluid removal only as indicated. 2. Anemia - currently on Epogen and iron supplementation. 3. Fever - will probably do a blood culture with dialysis today.
[2017-08-03 09:21] LABS: #Basophils 0.1 thou/uL (0.0-0.2); #Eosinphils 0.3 thou/uL (0.0-0.7); #Lymphocytes 0.9 thou/uL (1.20-3.40); #Neutrophils 4.9 thou/uL (1.40-6.50); %Eosinophils 4.1 % (0.0-10.0); %Lymphocytes 12.2 % (21.0-51.0); %Monocytes 13.7 % (0.0-10.0); Hemoglobin 8.1 g/dL (14.0-18.0); Mean Corpuscular HGB CONC 32.3 g/dL (32.0-36.0); Mean Corpuscular Hemoglobin 29.1 pg (27.0-31.0); Mean Corpuscular Volume 90.1 fl (80.0-94.0); Mean Platelet Volume 7.4 fL (7.4-10.4); Platelet Count 251 thou/uL (130-400); RBC Distribution Width 12.6 % (11.5-14.5); White Blood Cell (WBC) Count 7.1 thou/uL (4.8-10.8)
[2017-08-03 09:27] LABS: Anion Gap 17 mmol/L (10-20); BUN (Urea Nitrogen) 47 mg/dL (8.4-25.7); Calc. Creatinine Clearance 8 mL/min (70-130); Calcium 9.3 mg/dL (7.8-10.44); Carbon Dioxide 31 mmol/L (23-31); Chloride 98 mmol/L (98-107); Estimated GFR-MDRD 8; Glucose 106 mg/dL (80-115); Potassium 4.7 mmol/L (3.5-5.1); Sodium 141 mmol/L (136-145)
--- NOTE | 2017-08-03 10:50 | CON ---
DATE OF CONSULTATION: 08/02/2017 REASON FOR CONSULTATION: Request for PEG tube. HISTORY OF PRESENT ILLNESS: Mr. Davies is a 71-year-old gentleman who has had a complicated hospita l course. He has really been in the hospital effectively since early July. At that time, he came in with abdominal pain, distention, and fecal impaction. He had been in the hospital just before that w ith a CVA. CT at that admission showed a distended stomach, but normal small bowel. No signs of obs truction. The initial stroke was in May and he had a basal ganglion bleed at that time. It was fe lt related to uncontrolled hypertension. During this admission, he has actually now been started on dialysis. He had CAT scans of the abdomen and pelvis on 07/06/2017 that showed acute gastric distent ion. He had another CAT scan on 07/10/2017 that showed resolution of that, but apparently that was d one for a drop in hemoglobin of 6-8 units with unclear etiology. Presently, per nurse's note, he has just not been eating well. He is on dialysis for 3 or 4 weeks now. There has been some feeling on part of the nurses that he is depressed. Apparently, the asked about a feeding tube. He was ju st started on calorie counts today. The nurse today notes she has been pushing Nepro oral supplement s, and he has actually been drinking them. He has been evaluated by speech pathology and had some de ficits, but was not felt to be high risk for aspiration. Talking with the patient presently, he has a lot of expressive aphasia, but he seems to be alert and oriented, seems to understand what is going on. When I talked to him about feeding tube, he states h e does not want one. He shook his head no. When his friend in the room said that either you will galicia ve to eat or have a feeding tube, he said I will eat. I have called the patient's who notes agustin t he would not eat and she wants to know about feeding tube. I did explain to her that ultimately th at is going to be his choice as he seems to be able to make decisions for himself. She is going to c ome and talk to him about that. I did talk with the patient about the risks, benefits, and possible complications of the tube. Also, the option that he could have a feeding tube and still eat some, it would give him a way to have ext ra nutrition. I discussed with the , the risks of PEG tube placement, benefits, and the fact agustin t if he would have recurrent problems with obstipation or gastric distention, feeding tube actually c ould result in overfeeding and aspiration pneumonia. She understands this and is going to talk with the hospitalist and decide what they want to do after that. PAST MEDICAL HISTORY: Prior CVAs; prior intracranial bleed; hypertension; chronic kidney disease, no w on dialysis; colon polyp in 2017 in my office; EGD this recent admission due to gastric distention, but no signs of bowel obstruction or ulcers. HOME MEDICATIONS: Hydralazine, atenolol, minoxidil, nifedipine, Ditropan. PRESENT MEDICATIONS: Normal saline, MiraLax daily, Ditropan, Remeron, milk of magnesia, iron, Procri t, Catapres, Rocephin, and Dulcolax. ALLERGIES: TYLENOL, DUONEB. PHYSICAL EXAMINATION: VITAL SIGNS: Temperature is 99, T-max 100.4, pulse 96, blood pressure 160/92. LUNGS: Clear. HEART: Regular rate and rhythm without murmurs. ABDOMEN: Slightly protuberant, but nontender. Bowel sounds positive. RECTAL: Liquid stool in the vault. EXTREMITIES: His legs are contracted out, but the nurses note that the physical therapist can straig hten him out without overt contractures. NEUROLOGIC: He has an expressive aphasia, but seems to at least express some of the things he wants to. LABORATORY DATA: White count is 8, hemoglobin 9.2, platelet count 182, 67% segs. INR 1.3. Sodium 1 37, potassium 4.3, BUN and creatinine of 30 and 5.6. Serology: Hepatitis A, B, and C negative. Blo od cultures on 07/23/2017 negative. Respiratory culture, MRSA on 07/11/2017. ASSESSMENT: Anorexia. The patient does not want to eat. He has had CAT scan, which did not show th e etiology. The patient had an EGD earlier this month. I suspect some of this were related to his p rior strokes, depression, and end-stage renal disease and starting dialysis. He has no signs of thru sh on exam. He is not on antibiotics chronically. He has liquid stool in the rectal vault. No impa ction at this time. RECOMMENDATIONS: 1. With low-grade temperature, we will check a C. diff toxin on him. 2. If the patient and come to agreement with regard to PEG tube feeding, we can definitely plac e that as he has gone for about a month now not eating much at all; however, this is not going to res olve the problems he has had with intermittent bouts of acute gastric distention and obstipation. He will need to be kept on a bowel regimen. I have told the nurses once the family decides what they w ant to do, and if they want to proceed with a PEG tube, then I will be happy to re-evaluate him, othe magdalena I think he should be on a calorie count. I would strongly encourage p.o. intake.
[2017-08-03] MEDS ORDERED: Iopamidol 370 76% 100 ML VIAL ONE (11:43)
[2017-08-03] MEDS: cefTRIAXone\\ROCEPHIN 1 GM in Sodium Chloride 0.9% 100 ML IVPB SCH (12:24)
[2017-08-03] MEDS: Polyethylene Glycol 3350 17 GM Packet PO SCH (12:24)
[2017-08-03] MEDS: Oxybutynin 5 MG TAB PO SCH ×2 (12:37→21:59)
[2017-08-03] MEDS: cloNIDine 0.2 MG TAB PO SCH ×2 (12:37→21:59)
[2017-08-03] MEDS: Ferrous Sulfate 325 MG TAB PO SCH ×2 (12:37→15:57)
[2017-08-03] MEDS: Acetaminophen 325 MG TAB PO PRN ×2 (12:37→22:00)
--- NOTE | 2017-08-03 14:00 | PRG ---
DATE OF SERVICE: 08/03/2017 SUBJECTIVE: This is a followup note because of recrudescence of fever. I had seen Mr. Samson daley ously during this admission approximately 10 days ago when he presented with a history of hemorrhagic CVA in 06/2017, hypertension and stage IV renal failure, which progressed to end-stage renal disease and has been managed with a tunneled hemodialysis catheter in the right IJ position. He also develo ped ileus on 07/20 and then started having temperature elevation intermittently. When I saw him on 07/23, he was a little bit confused. His T-max was 100.3. He did not establish eye contact, did not follow commands and he resisted exam at that time. There is a small ulceration in the right thigh, a lso had a peripheral IV access and a tunneled hemodialysis catheter in the right IJ position. Previo us groin catheter has been removed. The assessment was possible thromboembolic disorder. Since he c ould not have a proper DVT prophylaxis in view of the brain hemorrhage, a study was performed, which showed a left lower extremity deep vein thrombosis in the distal femoral vein, popliteal vein extendi ng to the mid posterior tibial vein. With that in mind, the patient had an IVC filter placed on 07/05. Since then, the patient has continued to have intermittent temperature elevation and just this mo rning had another episode of 101.3. Currently, Mr. Davies is awake. He is much more responsive. H e answers questions by nodding with his head and is able to understand our commands. He denies any h eadaches, no pain, no dyspnea. He is voiding spontaneously. OBJECTIVE: VITAL SIGNS: His current blood pressure 150/84, temperature a few hours ago was 101.3. SKIN: Shows a small stage II in the right parasacral region. GENERAL: He does not appear in distress. The patient has a right tunneled IJ hemodialysis catheter, which does not have any inflammatory changes. Quite severe contractures in the lower extremities. HEENT: His ocular movements are conjugate. Oral cavity is dry. LUNGS: Symmetric. Clear breath sounds. HEART: S1, S2 with a regular rate. No S3, S4. ABDOMEN: Soft, not distended. LABORATORY DATA: Sodium 141, creatinine 8.26, bilirubin 0.8 a few days ago, AST 10, ALT 22, alkaline phosphatase 33, LDH 363, albumin 3.8. Microbiology, we have a C. difficile toxin and antigen negati ve. Two sets of blood cultures from 08/02, no growth thus far and another set from the , no grow th in 5 days. Repeat chest x-ray showed no infiltrates from yesterday. An abdomen x-ray from 08/01 with fecal material in the colon. ASSESSMENT: Hemorrhagic cerebrovascular accident with severe neurological impairment. Fever, initia lly felt to be secondary to thromboembolism with possible pulmonary embolism. End-stage renal diseas e on hemodialysis with tunneled IJ catheter and persistence of fever. DISCUSSION: Differential diagnosis includes aspiration pneumonia versus complications related to the IVC filter placement. An intraabdominal inflammatory process not yet disclosed. We will obtain CT chest, abdomen and pelvis with contrast to evaluate the above possibilities. Repeat blood cultures x 2. Withhold antimicrobial therapy at this point in time.
--- NOTE | 2017-08-03 14:13 | PRG ---
DATE OF SERVICE: 08/03/2017 Mr. Davies still states he does not want a feeding tube. He has started eating with the help of his friend. PHYSICAL EXAMINATION: VITAL SIGNS: Temperature max 101.3, blood pressure 159/84. ABDOMEN: Soft, nontender, no rebound or guarding. LABORATORY DATA: Today BUN and creatinine are 47 and 8.26, white count 7.1, hemoglobin 8.1, platelet count 251. ASSESSMENT: 1. Cerebrovascular accident. 2. Renal failure. 3. Low grade temperature. 4. Oropharyngeal dysphagia after stroke. The patient's family has discussed putting a feeding tube in the patient. Though he was fairly clau nt with me and his nurses he does not want one. In regards to his fever we did order a C. diff yesterday as he had diarrheal like stool. He was on a ntibiotics for some time. This was negative. Dr. Alamo has ordered a CT scan of abdomen and pelvis and chest for today. We will follow along with you.
--- NOTE | 2017-08-03 15:54 | CT ---
CT OF CHEST AND ABDOMEN AND PELVIS PERFORMED WITH IV CONTRAST ENHANCEMENT: Date: 08/03/17 HISTORY: Fever of unknown origin. History of deep venous thrombosis. COMPARISON: 07/10/17 examination. FINDINGS: There has been a considerable improvement to the lung changes as compared to the prior examination. T here are some atelectatic changes in the right lower lobe. The thoracic aorta is tortuous. No signifi cant mediastinal or hilar adenopathy. No significant axillary adenopathy. CT of abdomen was performed with IV contrast enhancement. The liver, spleen, pancreas, and gallbladde r regions show no abnormalities. Right and left adrenal glands, and right and left kidneys are normal in size. Hypodensity involving the right kidney appears to represent a small cyst. There is no signi ficant periaortic or mesenteric adenopathy. There is a moderate amount of stool present within the co killian. An IVC filter is present. CT of pelvis was performed with contrast. The appendix is normal. Prostate is enlarged. No adenopathy or mass. Review of osseous structures show an area of lytic bony change involving the left iliac crest. There are old rib fractures noted. In retrospect, this area was present on previous CTs of 07/06/17 and 09/20. I do not see any other areas of cortical irregularity. The margins of the area within the left iliac crest are sclerotic suggesting it is fairly chronic in nature and I doubt this is related to p atient's fever. There are some other areas of subtle lucency within the greater trochanter region of the right hip. IMPRESSION: 1. Subsegmental atelectasis in the right lung base. 2. Lytic bone lesion involving the left iliac crest. There is disruption of the anterior cortex. Mar gins are somewhat sclerotic and it was present and unchanged since the 07/06/17 and 07/10/17 CT exami [facility]. Differential considerations would include the possibility of a brown tumor given patient's hi story of renal failure. There are no other definitive areas within the skeletal system similar to thi s, although there are some areas of subtle bony demineralization, one of the more pronounced areas in the greater trochanter region of the right hip. An entity such as myeloma would have to be considere d. There are multiple old right rib fractures and a left humerus fracture, but I do not see definite lytic bony change associated with this. A bone scan may be helpful in further assessment. POS: [facility]
[2017-08-03] MEDS: hydrALAZINE 20 MG/ML VIAL SLOW IVP PRN (15:57)
[2017-08-03] MEDS: Mirtazapine 15 MG TAB PO SCH (21:59)
[2017-08-03] MEDS: Bisacodyl 10 MG SUPP PR SCH (22:00)
[2017-08-04] MEDS: cloNIDine 0.2 MG TAB PO SCH ×2 (09:12→21:54)
[2017-08-04] MEDS: Polyethylene Glycol 3350 17 GM Packet PO SCH (09:40)
[2017-08-04] MEDS: Ferrous Sulfate 325 MG TAB PO SCH ×2 (09:40→18:17)
[2017-08-04] MEDS: Oxybutynin 5 MG TAB PO SCH ×2 (09:40→21:54)
--- NOTE | 2017-08-04 10:17 | PRG ---
DATE OF SERVICE: 08/04/2017 RENAL MEDICINE SUBJECTIVE: Mr. Davies is a 71-year-old black male followed up by the Renal Service for his acute k idney injury secondary to presumed acute tubular necrosis. He is currently on maintenance hemodialys is. He is tolerating the said dialysis. The issue with this patient at the present time is that the patient is unable to take adequate p.o. intake. Recommendation for PEG tube was made. However, GI is evaluating the patient. The patient is declining a PEG tube placement. The other concern is that this patient may also be aspirating due to his recent cerebrovascular accident. This morning, he voices no new complaints. Please note in the interim, this patient developed DVT and IVC filter was placed. PHYSICAL EXAMINATION: VITAL SIGNS: Blood pressure 129/68, heart rate 93, respiratory rate 16, temperature 99, pulse ox 98% . GENERAL: The patient is awake and cachectic looking. SKIN: Decreased turgor. HEENT: He has slightly pale conjunctivae, anicteric sclerae. NECK: No neck mass, no carotid bruits, no JVD. CHEST: No deformities. LUNGS: Clear breath sounds. HEART: Normal sinus rhythm. No murmurs, no gallops, no rubs. ABDOMEN: Globular, soft, nontender, no masses. EXTREMITIES: No edema. NEUROLOGIC: Dysarthric. Left-sided weakness. MEDICATIONS: Medications of 08/04/2017 was reviewed. LABORATORY DATA: Laboratories of 08/03/2017; hemoglobin 8.1. Sodium 141, potassium 4.7, chloride 98 , carbon dioxide 31, BUN 47, creatinine 8.26, glucose 106, and calcium 9.3. Blood C&S, no growth to date. IMAGING DATA: On 08/03/2017, CT scan of the chest shows subsegmental atelectasis. Incidental findin g of a lytic bone lesion involving the left iliac crest. ASSESSMENT AND PLAN: 1. Acute kidney injury - secondary to presumed acute tubular necrosis. Continue supportive hemodial ysis. Tolerating said treatment. Fluid removal as tolerated. 2. Lytic bone lesion - nuclear scan/bone scan will be done on this patient. If this is suggestive o f malignancy, we may need to consider placing this patient on hospice care. 3. Anemia. Continuing weekly Epogen, p.r.n. blood transfusion.
--- NOTE | 2017-08-04 20:01 | PRG ---
DATE OF SERVICE: 08/04/2017 SUBJECTIVE: Mr. Davies still really is awake and not verbalizing, but he is pretty adamant when I a sked him about the feeding tube, shaking his head no. Again, I have talked to him about his nutritio nal intake does not seem to be adequate and told him he could take it out when he is eating better. He still shakes his head no. OBJECTIVE: VITAL SIGNS: Temperature is 98.7, pulse 89, respirations 18, blood pressure 120/74, T-max yesterday was 101.3. LUNGS: Clear, decreased breath sounds at base. ABDOMEN: Soft, nontender. LABORATORY STUDIES AND IMAGING: White count 7.1, hemoglobin 8.1, platelet count 251. INR 1.3. Base met normal except for a BUN and creatinine of 47 and 8.26. Urine yesterday showed greater than 50 w delfina blood cells. Blood cultures pending, negative thus far. Urine culture from 08/02/2017 was nega tive for [address] scan yesterday showed some bony changes, lytic lesion in the left iliac crest, old rib fractures present on CT on 07/10/2017. Margins were sclerotic indicating chronicity per the radiologist, atelectasis right lung base. Radiology raised a question of myeloma; however, the sterling ent's total protein is 5.9 with an albumin of 4.2 with no globulin gap making that although less like ly. ASSESSMENT: Poor p.o. intake. I think the patient needs some nutrition, although he refuses [place]obb[place] f and refuses a PEG tube at this time. If he changes his mind, we would be happy to place a PEG tube . We will follow from a distance at this point in time, Dr. Huang is on this weekend and if the fami ly changes mind, can re-contact him, otherwise I will return on Monday.
[2017-08-04] MEDS: Bisacodyl 10 MG SUPP PR SCH (21:53)
[2017-08-04] MEDS: Mirtazapine 15 MG TAB PO SCH (21:54)
[2017-08-04] MEDS: Acetaminophen 325 MG TAB PO PRN (23:48)
[2017-08-05] MEDS ORDERED: Heparin 1,000 UNITS/ML VIAL ONE (11:11)
--- NOTE | 2017-08-05 11:19 | PRG ---
DATE OF SRVICE: 08/05/2017 SUBJECTIVE: Mr. Davies is a 71-year-old black male being followed up by the renal service for his a cute kidney injury secondary to acute tubular necrosis - currently on maintenance hemodialysis. I am at the bedside supervising his hemodialysis. Fluid removal as tolerated. We are having lots of boy t in the dialyzer. We have not been giving him heparin due to the CVA secondary to bleed. My plan i s to use minimal heparin with dialysis 500 units an hour and just to get the blood flow going. I thi nk it is crucial that we are able to do some maintenance hemodialysis with this patient. The other i ssue is this patient has been declining a PEG tube placement. He is also declining palliative care. No other complaints today. PHYSICAL EXAMINATION: VITAL SIGNS: Blood pressure 150/79, heart rate 97, respiratory rate 20, temperature 99.6, T-max 100. 2, pulse ox 97%. GENERAL: Awake, supine, comfortable, not in distress. SKIN: Adequate turgor. HEENT: He has slightly pale conjunctivae, anicteric sclerae. NECK: No neck mass, no carotid bruits, no JVD. CHEST: No deformities. LUNGS: Clear breath sounds. No wheezing, no crackles. HEART: Normal sinus rhythm. No murmur, no gallops or rubs. ABDOMEN: Globular, soft, nontender. No masses. EXTREMITIES: No edema, no deformities. MEDICATIONS: Of 08/05/2017 was reviewed. LABORATORY DATA: Of 08/03/2017, hemoglobin 8.1, BUN is 47, creatinine 8.26. ASSESSMENT AND PLAN: 1. Acute kidney injury - secondary to acute tubular necrosis. No evidence of renal recovery. Ranulfo nuing Monday, , and Monday hemodialysis. Recheck base met and CBC in a.m. 2. Hypertension, fairly controlled. Continue current blood pressure medications. 3. Status post cerebrovascular accident. Continue supportive care. 3. ? of aspiration - the patient is declining PEG tube. 4. Anemia, on weekly Epogen and iron supplementation, p.r.n. blood transfusion.
[2017-08-05] MEDS: cloNIDine 0.2 MG TAB PO SCH ×2 (11:23→20:17)
[2017-08-05] MEDS: Ferrous Sulfate 325 MG TAB PO SCH ×2 (11:23→16:51)
[2017-08-05] MEDS: Polyethylene Glycol 3350 17 GM Packet PO SCH (11:23)
[2017-08-05] MEDS: Oxybutynin 5 MG TAB PO SCH ×2 (11:23→20:17)
[2017-08-05] MEDS: Mirtazapine 15 MG TAB PO SCH (20:17)
[2017-08-05] MEDS: Bisacodyl 10 MG SUPP PR SCH (20:17)
[2017-08-06 04:37] LABS: #Eosinphils 0.2 thou/uL (0.0-0.7); #Lymphocytes 1.2 thou/uL (1.20-3.40); #Monocytes 0.9 thou/uL (0.11-0.59); #Neutrophils 6.3 thou/uL (1.40-6.50); %Basophils 0.6 % (0.0-1.0); %Eosinophils 2.4 % (0.0-10.0); %Lymphocytes 14.2 % (21.0-51.0); %Monocytes 10.8 % (0.0-10.0); Hemoglobin 8.8 g/dL (14.0-18.0); Mean Corpuscular HGB CONC 32.9 g/dL (32.0-36.0); Mean Corpuscular Hemoglobin 29.9 pg (27.0-31.0); Mean Corpuscular Volume 90.8 fl (80.0-94.0); Mean Platelet Volume 7.1 fL (7.4-10.4); Platelet Count 248 thou/uL (130-400); RBC Distribution Width 12.8 % (11.5-14.5); Red Blood Cell (RBC) Count 2.94 mill/uL (4.70-6.10); White Blood Cell (WBC) Count 8.7 thou/uL (4.8-10.8)
[2017-08-06 04:42] LABS: Anion Gap 16 mmol/L (10-20); BUN (Urea Nitrogen) 28 mg/dL (8.4-25.7); Calc. Creatinine Clearance 12 mL/min (70-130); Calcium 9.4 mg/dL (7.8-10.44); Carbon Dioxide 28 mmol/L (23-31); Chloride 99 mmol/L (98-107); Estimated GFR-MDRD 13; Glucose 98 mg/dL (80-115); Potassium 3.9 mmol/L (3.5-5.1); Sodium 139 mmol/L (136-145)
[2017-08-06] MEDS: Ferrous Sulfate 325 MG TAB PO SCH ×2 (09:27→17:36)
[2017-08-06] MEDS: Polyethylene Glycol 3350 17 GM Packet PO SCH (09:28)
[2017-08-06] MEDS: Oxybutynin 5 MG TAB PO SCH ×2 (09:28→21:06)
[2017-08-06] MEDS: cloNIDine 0.2 MG TAB PO SCH ×2 (09:28→21:06)
[2017-08-06] MEDS: Acetaminophen 325 MG TAB PO PRN (18:37)
[2017-08-06] MEDS: Mirtazapine 15 MG TAB PO SCH (21:06)
[2017-08-06] MEDS: Bisacodyl 10 MG SUPP PR SCH (21:07)
[2017-08-06] MEDS: Acetaminophen/Codeine 30-300mg Tablet PO PRN (21:58)
[2017-08-07] MEDS: Acetaminophen/Codeine 30-300mg Tablet PO PRN ×3 (06:47→23:41)
--- NOTE | 2017-08-07 09:58 | PRG ---
DATE OF SERVICE: 08/07/2017 RENAL MEDICINE SUBJECTIVE: Mr. Davies is a 71-year-old black male who has been seen by the Renal Service for his a cute kidney injury secondary to presumed acute tubular necrosis. He is currently on maintenance hemo dialysis. He received dialysis today without any problem. The patient still has decreased p.o. intake. He has been refusing NG tube placement and/or a PEG tub e placement. He denies any new complaints today. He denies any chest pain, shortness of breath. OBJECTIVE: VITAL SIGNS: Blood pressure is 171/82, heart rate 87, respiratory rate 18, temperature 98.8, pulse o x 94%. GENERAL: Noted to be awake, able to follow commands, not in distress. SKIN: Adequate turgor. HEENT: He has slightly pale conjunctivae, anicteric sclerae. NECK: No neck mass, no carotid bruits, no JVD. CHEST: No deformities. LUNGS: Clear breath sounds. No wheezing, no crackles. HEART: Normal sinus rhythm. No murmurs, no gallops, no rubs. ABDOMEN: Globular, soft, nontender, no masses. EXTREMITIES: No edema, no deformities. NEUROLOGICAL: Awake. He has left-sided weakness. MEDICATIONS: Medications of 08/07/2017 was reviewed. LABORATORY DATA: Laboratories of 08/06/2017; white count 8.7, hemoglobin 8.8, hematocrit 26.7. Sodi um 139, potassium is 3.9, chloride 99, carbon dioxide 28, BUN 28, creatinine 5.28, glucose 98, calciu m 9.4. ASSESSMENT AND PLAN: 1. Acute kidney injury - secondary to presumed acute tubular necrosis, no evidence of renal recovery . We will recheck another basic metabolic panel met in a.m. For the moment, continue Monday, , and Monday hemodialysis regimen. 2. Decreased p.o. intake - patient declining a PEG tube or NG tube. If he will further decline this supportive management, we may need to consider placing this patient on hospice care. He has also [facility] previously. 3. Hypertension. Continue current blood pressure medications. 4. Anemia, continuing weekly Epogen and iron supplementation.
[2017-08-07] MEDS: Polyethylene Glycol 3350 17 GM Packet PO SCH (10:03)
[2017-08-07] MEDS: Ferrous Sulfate 325 MG TAB PO SCH ×2 (10:05→17:12)
[2017-08-07] MEDS: Oxybutynin 5 MG TAB PO SCH ×2 (10:05→21:11)
[2017-08-07] MEDS: cloNIDine 0.2 MG TAB PO SCH ×2 (10:05→21:11)
[2017-08-07] MEDS: Epoetin (ESRD) 20,000 UNITS/ML SC SCH (10:41)
[2017-08-07] MEDS ORDERED: Tuberculin PPD 0.1 ML VIAL I-DERMAL SCH (13:00)
[2017-08-07] MEDS ORDERED: READ PPD TEST SITE PO SCH (13:00)
[2017-08-07] MEDS: Bisacodyl 10 MG SUPP PR SCH (20:58)
[2017-08-07] MEDS: Mirtazapine 15 MG TAB PO SCH (21:11)
[2017-08-08 04:55] LABS: #Eosinphils 0.3 thou/uL (0.0-0.7); #Lymphocytes 1.8 thou/uL (1.20-3.40); #Monocytes 1.5 thou/uL (0.11-0.59); %Basophils 0.3 % (0.0-1.0); %Eosinophils 2.1 % (0.0-10.0); %Lymphocytes 11.4 % (21.0-51.0); %Monocytes 9.6 % (0.0-10.0); %Neutrophils 76.6 % (42.0-75.0); Hemoglobin 8.7 g/dL (14.0-18.0); Mean Corpuscular HGB CONC 32.5 g/dL (32.0-36.0); Mean Corpuscular Hemoglobin 28.9 pg (27.0-31.0); Mean Corpuscular Volume 88.9 fl (80.0-94.0); Mean Platelet Volume 6.3 fL (7.4-10.4); Platelet Count 308 thou/uL (130-400); RBC Distribution Width 12.9 % (11.5-14.5); White Blood Cell (WBC) Count 15.7 thou/uL (4.8-10.8)
[2017-08-08 05:07] LABS: Anion Gap 16 mmol/L (10-20); BUN (Urea Nitrogen) 59 mg/dL (8.4-25.7); Calc. Creatinine Clearance 6 mL/min (70-130); Calcium 9.3 mg/dL (7.8-10.44); Carbon Dioxide 28 mmol/L (23-31); Chloride 98 mmol/L (98-107); Estimated GFR-MDRD 6; Glucose 115 mg/dL (80-115); Potassium 4.3 mmol/L (3.5-5.1); Sodium 138 mmol/L (136-145)
[2017-08-08] MEDS ORDERED: Heparin 10,000 UNITS/ 10 ML VIAL ONE (09:00)
--- NOTE | 2017-08-08 09:20 | PRG ---
DATE OF SERVICE: 08/08/2017 SERVICE: Renal Medicine. SUBJECTIVE: Mr. Davies is a 71-year-old black male with acute renal failure secondary to acute tubu lar necrosis. He has no evidence of renal recovery. For that reason, he continues to be on maintena nce hemodialysis. The patient is now going to longterm placement. We are now planning to place him on outpatient dialysis. He is currently at the dialysis room. I am at the bedside supervising h is dialysis. He is tolerating the said dialysis. No other complaints. PHYSICAL EXAMINATION: VITAL SIGNS: Blood pressure is 130/78, heart rate 102, respiratory rate 18, temperature 99.1, pulse ox 96%. GENERAL: Awake, comfortable, not in distress. SKIN: Adequate turgor. HEENT: He has pale conjunctivae, anicteric sclerae. NECK: No neck mass, no carotid bruits, no JVD. CHEST: No deformities. LUNGS: Clear breath sounds. No wheezing, no crackles. HEART: Normal sinus rhythm. No murmur, no gallops or rubs. ABDOMEN: Globular, soft, nontender, no masses. EXTREMITIES: No edema. NEUROLOGIC: Left-sided weakness. MEDICATIONS: Of 08/08/2017 was reviewed. LABORATORY DATA: Of 08/08/2017, white count 15.7, hemoglobin 8.7, sodium 138, potassium 4.3, chlorid e 98, carbon dioxide 20, BUN 59, creatinine 9.79, glucose 115, calcium 9.3. ASSESSMENT AND PLAN: 1. Acute kidney injury - secondary to prolonged acute tubular necrosis, no evidence of renal recover y. Continue 3 times a week hemodialysis. Fluid removal as tolerated. 2. Anemia - continue Epogen and iron supplementation. 3. Status post cerebrovascular accident. Supportive care. The patient is to be transferred to [facility]. Overall, agree with current management. Recheck base met and CBC in a.m.
[2017-08-08 12:26] VITALS: BMI 21.2
[2017-08-08] MEDS: Oxybutynin 5 MG TAB PO SCH ×2 (12:49→21:08)
[2017-08-08] MEDS: Ferrous Sulfate 325 MG TAB PO SCH ×2 (12:49→16:46)
[2017-08-08] MEDS: cloNIDine 0.2 MG TAB PO SCH ×2 (12:50→21:10)
[2017-08-08] MEDS: Polyethylene Glycol 3350 17 GM Packet PO SCH (12:55)
[2017-08-08] MEDS: Acetaminophen/Codeine 30-300mg Tablet PO PRN (21:08)
[2017-08-08] MEDS: Mirtazapine 15 MG TAB PO SCH (21:09)
[2017-08-08] MEDS: Bisacodyl 10 MG SUPP PR SCH (21:10)
[2017-08-09 05:51] LABS: Anion Gap 15 mmol/L (10-20); BUN (Urea Nitrogen) 26 mg/dL (8.4-25.7); Calc. Creatinine Clearance 11 mL/min (70-130); Calcium 9.1 mg/dL (7.8-10.44); Carbon Dioxide 27 mmol/L (23-31); Chloride 100 mmol/L (98-107); Estimated GFR-MDRD 12; Glucose 117 mg/dL (80-115); Potassium 3.9 mmol/L (3.5-5.1); Sodium 138 mmol/L (136-145)
[2017-08-09 06:32] LABS: Band 1 % (5-11); Hemoglobin 9.1 g/dL (14.0-18.0); Lymphocytes 14 % (21-51); MDiff Complete? YES; Mean Corpuscular HGB CONC 32.5 g/dL (32.0-36.0); Mean Corpuscular Hemoglobin 29.1 pg (27.0-31.0); Mean Corpuscular Volume 89.4 fl (80.0-94.0); Mean Platelet Volume 6.4 fL (7.4-10.4); Monocytes 8 % (0-10); Neutrophil 77 % (42-75); PLT Morphology Comment Appears Adequate; Platelet Count 283 thou/uL (130-400); Red Blood Cell (RBC) Count 3.13 mill/uL (4.70-6.10); White Blood Cell (WBC) Count 13.7 thou/uL (4.8-10.8)
[2017-08-09] MEDS: Acetaminophen 325 MG TAB PO PRN ×2 (08:46→12:06)
[2017-08-09] MEDS: Oxybutynin 5 MG TAB PO SCH ×2 (08:47→08:54)
[2017-08-09] MEDS: cloNIDine 0.2 MG TAB PO SCH (08:47)
[2017-08-09] MEDS: Ferrous Sulfate 325 MG TAB PO SCH ×2 (08:47→08:54)
[2017-08-09] MEDS: Polyethylene Glycol 3350 17 GM Packet PO SCH ×2 (08:48→08:54)
--- NOTE | 2017-08-09 09:14 | PRG ---
DATE OF SERVICE: 08/09/2017 SUBJECTIVE: Mr. Davies is a 71-year-old black male who was seen by the Renal Service for his acute kidney injury secondary to acute tubular necrosis. He has never recovered from the renal dysfunctio n. He was also at one time found on 08/03/2017 with a ? of a lytic lesion on the CT scan of the pelv is. Workup has been done tentatively - patient has had serologies done which showed an ANCA that was negative and anti-GBM antibody that was also negative. He also had hepatitis profile that was all n egative. His urinalysis did show proteinuria. For that reason serology was done. He may need to have serum and urine protein electrophoresis done. However, even if a diagnosis of mu ltiple myeloma is made with this patient he is not a candidate due to his poor overall status. His a ppetite is still decreased. He did get a fair amount of fluid yesterday, but this morning he is resi sting his breakfast. Please note he has also declined a PEG tube placement. He has been advised hos pice, but has declined also. No other complaints. PHYSICAL EXAMINATION: VITAL SIGNS: Blood pressure 101/55, heart rate is 106, respiratory rate 18, temperature 100.7. GENERAL: Awake, alert, comfortable, not in overt distress. SKIN: Adequate turgor. HEENT: He has pinkish conjunctivae, anicteric sclerae. NECK: No neck mass, no carotid bruits, no JVD. CHEST: No deformities. LUNGS: Decreased breath sounds. HEART: Normal sinus rhythm. No murmur, no gallops, no rubs. ABDOMEN: Globular, soft, nontender, no masses. EXTREMITIES: No edema, no deformities. He has a left-sided weakness. MEDICATIONS: 08/09/2017 - Reviewed. LABORATORY DATA: 08/09/2017 - White count 13.7, hemoglobin 9.1. Sodium 138, potassium 3.9, chloride 100, carbon dioxide 27, BUN 26, creatinine 5.75, glucose 117, calcium 9.1. ASSESSMENT AND PLAN: 1. Acute kidney injury - secondary to acute tubular necrosis. No evidence of renal recovery. Venkatesh mcgee on 3 times a week hemodialysis. I agree with planned discharge and we will dialyze this patient as an outpatient this coming Monday. 2. Anemia, on Epogen and iron supplementation. 3. Low grade fever - blood cultures in the past have all been negative. He has also been empiricall y treated with IV antibiotics. 4. Proteinuria. Workup has been negative so far. Order for SPEP, UPEP was previously done. Thiago mckeon, as previously mentioned, even if there is a diagnosis of multiple myeloma, this patient is not a c andidate for any chemotherapy and his prognosis is very poor. I agree with the current management.
[2017-08-09] MEDS ORDERED: READ PPD TEST SITE PO SCH (13:00)
[2017-08-09 13:02] VITALS: BP 105/58
[2017-08-09 13:06] VITALS: TEMP 98.9
[2017-08-09 16:17] LABS: A/G Ratio 0.8 (0.7-1.7); Albumin 2.9 g/dL (2.9-4.4); Alpha 1 0.5 g/dL (0.0-0.4); Alpha 2 1.1 g/dL (0.4-1.0); Beta 0.8 g/dL (0.7-1.3); Gamma 1.1 g/dL (0.4-1.8); Globulin, Total 3.6 g/dL (2.2-3.9); M-Spike Not Observed g/dL (Not Observed)
--- NOTE | 2017-08-10 13:24 | DIS ---
DATE OF ADMISSION: 07/07/2017 DATE OF DISCHARGE: 08/09/2017 ADMITTING DIAGNOSES: 1. Abdominal distension, gaseous and severe constipation, fecal impaction. 2. Hypertension, uncontrolled. 3. Acute kidney injury. 4. Chronic kidney disease. 5. Hypokalemia. 6. Cerebral hemorrhage. FINAL DIAGNOSES: 1. Abdominal distention due to distention of stomach, resolved. 2. Status post esophagogastroduodenoscopy, severe hypotension and respiratory failure, status post i ntubation and ventilator support. 3. Aspiration pneumonia. 4. Acute kidney injury, possibly due to acute tubular necrosis, not recovered. The patient is on di alysis 3 times a week. 5. Deep venous thrombosis of the left lower leg, status post inferior vena cava filter. 6. Severe protein-calorie malnutrition and anorexia. The patient declined PEG tube placement and fe eding. 7. Chronic kidney disease stage 5. 8. Chronic anemia with a drop in hemoglobin and hematocrit, status post transfusion. BRIEF SUMMARY OF HOSPITAL COURSE: Mr. Davies is a 71-year-old -English male with past medic al history of chronic kidney disease, hypertension and cerebral hemorrhage, was admitted to the [facility] because of severe abdominal distension of sudden onset. The patient has fecal impaction, which h as been disimpacted but the patient continued to have abdominal distention and a consultation was don e with GI. The patient was seen by Dr. Flynn. He felt the patient has a gastric distention due to unknown cause. He suggested EGD. The patient underwent EGD, found to have a lot of gastric leighann nts. It was suctioned. During EGD, the patient became hypotensive and also went into respiratory fa ilure requiring intubation. The patient was put on ventilator. The patient was intubated and transf erred to ICU. Consultation was done with Pulmonary. The patient was seen by Dr. Rose. The patient possibly had aspiration pneumonia with respiratory failure and gastric distention of unknown cause. Suggested ventilator support and also support hypotension with pressors. The patient remained in the ICU for a few days because of his hypotension and respiratory failure. The patient also developed a cute kidney injury on top of his chronic kidney disease. His creatinine was 3.69 on admission, but i t gradually went up to 9. The patient had consultation done with Nephrology, Dr. Mello. He felt the p atient possibly have acute tubular necrosis on chronic renal failure. Suggested IV fluids initially for volume repletion, but the patient's kidney or renal function did not improve, so he was started o n hemodialysis 3 times a week. The patient's respiratory failure finally resolved. He was extubated and his hypotension also resolved and he was transferred to medical floor, but his renal function di d not improve, so he continued on hemodialysis. The patient did develop low-grade fever. The patien t was seen by Dr. Alamo and suggested venogram for the legs to rule out DVT and it was positive for D VT. The patient had intracerebral hemorrhage, so he could not be given any anticoagulation. So, a c onsultation was done with Vascular Surgery for IVC filter. The patient was seen by Dr. Stokes. The p atient underwent procedure, IVC filter was placed. The patient initially ate for few days, but then later he refused to eat. The patient wanted to eat, but he could not. He said he has no appetite. He was started on Remeron, but in spite of that, appetite did not improve. Discussed with the family and the patient about PEG tube feeding. His wanted him to have PEG tube feeding, but the patie nt flatly refused. GI consult was done. Also, the patient was seen by Dr. Centeno and Dr. Centeno dis cussed with the patient, who flatly refused repeatedly. I also talked to the patient about PEG tube feeding. He also refused many times. His condition and prognosis was discussed with his . Deann use of his deteriorating condition, offered palliative care. Discussed with the about his progn osis and palliative care. The patient's understood, but she does not wanted him to be DNR at is time. The patient initially was evaluated for rehab, but rehab could not take him because he is n ot eating. So, he was evaluated for custodial facility. He was accepted at [facility]. wants to think about make him DNR later, she wants to see if he is going to eat at the [facility]. So, the [facility]. At the time of discharge, he was stable. Tessa l signs stable. Lungs clear. Heart sounds regular. Abdomen soft and nontender. Bowel sounds prese nt. DISCHARGE MEDICATIONS: Include oxybutynin chloride 5 mg b.i.d., DuoNeb q.i.d. p.r.n., ferrous sulfat e 325 b.i.d., Remeron 7.5 mg daily, MiraLax 17 g daily, Dulcolax p.r.n., Procrit weekly, clonidine 0. 2 b.i.d., Tylenol p.r.n. The patient will continue physical [facility] at the [facility] and we will monitor about his feeding at the [facility]. We will discuss with his again about his code status and palliative care. The patient's prognosis remains very poor.
== END 2017-08-09 13:44 | disposition home or self-care (01) | DRG 673 ==
LOC: ERS 22:42 → 2SE 07-06 03:26 → OBSVTOIN 07-07 11:19 → CCU 07-08 11:35 → 2SE 07-15 13:44
PROVIDERS: ADMIT Internal Medicine; ATTEND Internal Medicine
PROC: 0D958ZZ Drainage of Esophagus, Via Natural or Artificial Opening Endoscopic (ICD-10-PCS; 2017-07-08)
PROC: 0D968ZZ Drainage of Stomach, Via Natural or Artificial Opening Endoscopic (ICD-10-PCS; 2017-07-08)
PROC: 5A1955Z Respiratory Ventilation, Greater than 96 Consecutive Hours (ICD-10-PCS; 2017-07-08)
PROC: 0BH17EZ Insertion of Endotracheal Airway into Trachea, Via Natural or Artificial Opening (ICD-10-PCS; 2017-07-08)
PROC: 5A12012 Performance of Cardiac Output, Single, Manual (ICD-10-PCS; 2017-07-08)
PROC: 30233N1 Transfusion of Nonautologous Red Blood Cells into Peripheral Vein, Percutaneous Approach (ICD-10-PCS; 2017-07-10)
PROC: 04HK33Z Insertion of Infusion Device into Right Femoral Artery, Percutaneous Approach (ICD-10-PCS; 2017-07-12)
PROC: 0JH60WZ Insertion of Totally Implantable Vascular Access Device into Chest Subcutaneous Tissue and Fascia, Open Approach (ICD-10-PCS; 2017-07-19)
PROC: 02HV33Z Insertion of Infusion Device into Superior Vena Cava, Percutaneous Approach (ICD-10-PCS; 2017-07-19)
PROC: B518ZZA Fluoroscopy of Superior Vena Cava, Guidance (ICD-10-PCS; 2017-07-19)
PROC: 05CB0ZZ Extirpation of Matter from Right Basilic Vein, Open Approach (ICD-10-PCS; 2017-07-24)
PROC: 06H03DZ Insertion of Intraluminal Device into Inferior Vena Cava, Percutaneous Approach (ICD-10-PCS; 2017-07-27)
PROC: B5191ZA Fluoroscopy of Inferior Vena Cava using Low Osmolar Contrast, Guidance (ICD-10-PCS; 2017-07-27)
PROC: 5A1D70Z Performance of Urinary Filtration, Intermittent, Less than 6 Hours Per Day (ICD-10-PCS; principal; 2017-08-03)
DX: N17.0 Acute kidney failure with tubular necrosis (principal); J69.0 Pneumonitis due to inhalation of food and vomit; E43 Unspecified severe protein-calorie malnutrition; G93.41 Metabolic encephalopathy; J96.01 Acute respiratory failure with hypoxia; A41.9 Sepsis, unspecified organism; I69.354 Hemiplegia and hemiparesis following cerebral infarction affecting left non-dominant side; I82.402 Acute embolism and thrombosis of unspecified deep veins of left lower extremity; K22.10 Ulcer of esophagus without bleeding; I82.611 Acute embolism and thrombosis of superficial veins of right upper extremity; D62 Acute posthemorrhagic anemia; B37.89 Other sites of candidiasis; E87.0 Hyperosmolality and hypernatremia; N39.0 Urinary tract infection, site not specified; I13.2 Hypertensive heart and chronic kidney disease with heart failure and with stage 5 chronic kidney disease, or end stage renal disease; K56.41 Fecal impaction; N18.6 End stage renal disease; E87.6 Hypokalemia; K44.9 Diaphragmatic hernia without obstruction or gangrene; R80.9 Proteinuria, unspecified; Z91.19 Patient's noncompliance with other medical treatment and regimen; I69.321 Dysphasia following cerebral infarction; R13.12 Dysphagia, oropharyngeal phase; R50.81 Fever presenting with conditions classified elsewhere; D63.1 Anemia in chronic kidney disease; I95.2 Hypotension due to drugs; T80.89XA Other complications following infusion, transfusion and therapeutic injection, initial encounter; Y82.8 Other medical devices associated with adverse incidents; Y92.230 Patient room in hospital as the place of occurrence of the external cause; M89.9 Disorder of bone, unspecified; E87.5 Hyperkalemia; B95.62 Methicillin resistant Staphylococcus aureus infection as the cause of diseases classified elsewhere; K31.84 Gastroparesis; F10.21 Alcohol dependence, in remission; B96.89 Other specified bacterial agents as the cause of diseases classified elsewhere; N40.0 Benign prostatic hyperplasia without lower urinary tract symptoms; K57.30 Diverticulosis of large intestine without perforation or abscess without bleeding; I50.9 Heart failure, unspecified; Z99.2 Dependence on renal dialysis; Z86.010 Personal history of colon polyps; Z68.21 Body mass index [BMI] 21.0-21.9, adult
CPT/HCPCS: 36415; 36416; 36430; 37191; 43752; 70450; 71045; 71250; 71260; 74018; 74022; 74176; 74177; 74230; 76942; 80048; 80053; 80069; 80076; 80202; 81001; 81003; 81015; 82553; 82570; 82805; 83010; 83516; 83520; 83605; 83615; 83690; 83735; 84100; 84156; 84165; 84300; 84484; 85007; 85025; 85027; 85060; 85610; 85730; 86256; 86580; 86704; 86706; 86850; 86880; 86900; 86901; 87040; 87070; 87077; 87086; 87186; 87205; 87324; 87340; 87449; 89220; 90471; 90670; 90935; 92950; 93005; 93010; 93306; 93970; 94002; 94003; 94640; A4216; C1752; C1769; C9113; G0009; G0257; G0365; G8978-GP-CM; G8979-GP-CK; G8979-GP-CL; G8987-GO-CM; G8987-GO-CN; G8988-GO-CL; G8996-GN-CK; G8996-GN-CN; G8997-GN-CK; G8997-GN-CM; J0171; J0360; J0670; J0690; J0692; J0696; J1642; J1644; J1940; J2001; J2250; J2704; J2720; J2920; J3010; J3370; J3480; J7042; J7050; J7506; J7620; P9016; P9045; P9047; Q4081

== ENCOUNTER 2017-08-16 19:49 | Emergency (ER) | payer MEDICARE ==
[2017-08-16] MEDS ORDERED: Norepinephrine 8 MG/0.9% NS 250 ML ONE (19:55)
[2017-08-16] MEDS ORDERED: Insulin Regular 300 UNITS/3 ML VIAL ONE (20:18)
[2017-08-16 20:19] LABS: Base Excess-Venous 6.4 mmol/L (0 (+/- 2.5)); Bicarbonate (HCO3v) 35.5 mmol/L (1.0-85.0); CO2 Tension (PvCO2) 101.3 mmHg (41.0-51.0); Calcium, Ionized 2.42 mmol/L (1.12-1.32); Hemoglobin - Calc 5.3 g/dL (12.0-18.0); O2 Tension (PvO2) 23.6 mmHg (35.0-45.0); T. Carbon Dioxide 38.6 mmol/L (1.0-85.0); pH (Venous) 7.152 (7.35-7.45); vO2 Saturation-calc 25.1 % (94-98)
== END 2017-08-16 20:21 | disposition expired ==
LOC: ERS 19:49
DX: I46.9 Cardiac arrest, cause unspecified (principal); I21.3 ST elevation (STEMI) myocardial infarction of unspecified site; E87.6 Hypokalemia; I10 Essential (primary) hypertension; Z86.73 Personal history of transient ischemic attack (TIA), and cerebral infarction without residual deficits
CPT/HCPCS: 36556; 82330; 82435; 82803; 84132; 84295; 85014; 92950; 93005; 94002; 96374; 96375; J1815